=== PATIENT | female | born 1950 | race Caucasian/White ===

== ENCOUNTER 2024-07-16 08:45 | Outpatient (CLI) | payer MEDICARE, SELFPAY ==
[2024-07-16 08:58] LABS: MANUAL DIFFERENTIAL MANUAL DIFFERENTIAL (MANUAL DIFF)
[2024-07-16 09:40] LABS: Basophils % 0.3 % (0.1-2.0); Eosinophils # 0.1 K/mm3 (0.0-0.4); Eosinophils % 1.5 % (0.1-12.0); Hematocrit 41.6 % (37.0-47.0); Hemoglobin 14.5 g/dL (12.2-16.2); Lymphocytes # 2.2 K/mm3 (0.7-4.5); Lymphocytes % 33.7 % (10-50); Mean Corpuscular HGB Conc 34.9 g/dL (31.8-35.4); Mean Corpuscular Volume 94.5 fl (81-99); Mean Platelet Volume 12.2 fl (7.4-10.4); Monocytes # 0.4 K/mm3 (0.1-1.0); Monocytes % 6.5 % (1.7-9.3); Neutrophils # 3.8 K/mm3 (1.8-7.8); Neutrophils % 57.8 % (37.0-80.0); Platelet Count 251 K/mm3 (142-424); Red Cell Distribution Width 12.8 % (11.5-17.5); White Blood Count 6.5 K/mm3 (4.8-10.8)
[2024-07-16 09:59] LABS: Alanine Aminotransferase 37 U/L (12-78); Albumin Level 4.2 g/dl (3.5-5.0); Albumin/Globulin Ratio 1.6 (1.1-1.8); Alkaline Phosphatase 98 U/L (38-126); Anion Gap 16.2 mEq/L (5-15); Aspartate Amino Transferase 38 U/L (14-36); Bilirubin,Total 0.4 mg/dl (0.2-1.3); Blood Urea Nitrogen 5 mg/dl (7-17); Calcium 9.1 mg/dl (8.4-10.2); Carbon Dioxide 22 mmol/L (22.0-30.0); Chloride 102 mmol/L (98-107); Estimated Glomerular Filt Rate 157 ml/min (>60); GFR (African American) 190 ML/MIN (>60); Globulin 2.7 g/dL (1.3-3.2); Glucose 145 mg/dl (74-100); Phenytoin (Dilantin) 9.5 ug/ml (10-20); Potassium 4.2 mmoL/L (3.5-5.1); Sodium 136 mmol/L (136-145); Total Protein,Serum 6.9 g/dl (6.3-8.2)
[2024-07-16 10:13] LABS: Eosinophils % 1 % (0-3); Lymphocytes % 38 % (10-50); Monocytes % 3 % (2-9); Neutrophils % 58 % (42-76); Platelet Estimate Normal; RBC Morphology Normal; Total Cells Counted 100
[2024-07-20 17:29] LABS: Levetiracetam (Keppra) 24.3 ug/mL (10.0-40.0)
[2024-07-24 20:12] LABS: 1,25 Dihydroxy Vitamin D 53 pg/mL (.); 1,25-Dihydroxy, Vitamin D-2 <10 pg/mL (.); 1,25-Dihydroxy, Vitamin D-3 53 pg/mL (.)
== END 2024-07-16 23:59 | disposition home or self-care (01) ==
LOC: LAB 08:48
PROVIDERS: PCP Internal Medicine; Visit Provider Specialist
DX: E11.9 Type 2 diabetes mellitus without complications (principal); Z79.84 Long term (current) use of oral hypoglycemic drugs; G83.84 Todd's paralysis (postepileptic); G40.909 Epilepsy, unspecified, not intractable, without status epilepticus; Z68.31 Body mass index [BMI] 31.0-31.9, adult; E78.5 Hyperlipidemia, unspecified; I67.2 Cerebral atherosclerosis
CPT/HCPCS: 36415; 80053; 80177; 80185; 82652; 85007; 85014; 85018; 85048; 85049

== ENCOUNTER → 2024-09-14 19:29 | Outpatient (CLI) | payer MEDICARE, SELFPAY ==
--- OUTSIDE RECORDS SUMMARY | 2024-07-28 09:06 | XMS_ITS | Encounter Summary ---
Author Organization Healthcare Address [address] [place] [address] Care Team Providers Care Business And Marketing Teacher Name Role Phone Prakash Castillo DO Primary Care Provider Jermaine Maki MD Unavailable [phone] Reason for Referral * Imaging (Routine) - Closed Specialty Diagnoses / Procedures Referred By Contac t Referred To Contact Radiology Diagnoses Intracranial vascular stenosis Procedures CT Angio Neck Charlotte Hay MD [address] [address] Phone: tel: fax: Referral ID Status Reason Start Date Expiration Date Visits Re quested Visits Authorized [id number] Closed 06/03/2024 12/03/2025 1 1 * Imaging (Routine) - Closed Specialty Diagnoses / Procedures Referred By Cristi frank Referred To Contact Radiology Diagnoses Intracranial vascular stenosis Procedures CT Angio Head Charlotte Hay MD [address] [address] Phone: tel: fax: Referral ID Status Reason Start Date Expiration Date Visits Re quested Visits Authorized [id number] Closed 06/03/2024 12/03/2025 1 1 Reason for Visit * Imaging (Routine) - Closed Specialty Diagnoses / Procedures Referred By Cristi frank Referred To Contact Radiology Diagnoses Intracranial vascular stenosis Procedures CT Angio Head Charlotte Hay MD [address] [place] [address] Phone: tel: fax: Referral ID Status Reason Start Date Expiration Date Visits Re quested Visits Authorized [id number] Closed 06/03/2024 12/03/2025 1 1 Encounter Details Date Type Department Care Team (Latest Contact Info) Description 07/28/2024 9:06 AM EDT - 07/28/2024 11:59 PM EDT Hospital Encounter [facility] [address] [place] [id number] Intracranial vascular stenosis Discharge Disposition: Home or Self Care Social History Tobacco Use Types Packs/Day Years Used Date Smoking Tobacco: Former Cigarettes Q uit: 1989 Smokeless Tobacco: Never Alcohol Use Standard Drinks/Week Comments Never 0 (1 standard drink = 0.6 oz pur e alcohol) Humiliation, Afraid, Rape, a nd Kick questionnaire Answer Date Recorded Within the last year, have y ou been afraid of your partner or ex-partner? Patient unable to answer 06/01/2024 Within the last year, have y ou been humiliated or emotionally abused in other ways by your partner or ex-partner? Patient unable to answer 06/01/2024 Within the last year, have y ou been kicked, hit, slapped, or otherwise physically hurt by your partner or ex-partner? Patient unable to answer 06/01/2024 Within the last year, have y ou been raped or forced to have any kind of sexual activity by your partner or ex-partner? Patient unable to answer 06/01/2024 Social Connection and Isolation Panel Answer Date Recorded In a typical week, how many times do you talk on the phone with family, friends, or neighbors? Patient unable to answer 06/01/2024 How often do you get togethe r with friends or relatives? Patient unable to answer 06/01/2024 How often do you attend [facility] or ep[facility] services? Patient unable to answer 06/01/2024 Do you belong to any clubs o r organizations such as zoroastrianism groups, unions, fraternal or athletic groups, or school groups? Patient unable to answer 06/01/2024 How often do you attend meet ings of the clubs or organizations you belong to? Patient unable to answer 06/01/2024 Are you , , di vorced, , never , or living with a partner? Patient unable to answer 06/01/2024 AUDIT-C Answer Date Recorded Q1: How often do you have a drink containing alcohol? Patient unable to answer 06/01/2024 Q2: How many drinks containi ng alcohol do you have on a typical day when you are drinking? Patient unable to answer Q3: How often do you have si x or more drinks on one occasion? Patient unable to answer 06/01/2024 [facility] - Occupational Stress Questionnaire Answer Date Recorded Do you feel stress - tense, restless, nervous, or anxious, or unable to sleep at night because your mind is troubled all the time - these days? Patient unable to answer 06/01/2024 Exercise Vital Sign Answer Date Recorde d On average, how many days pe r week do you engage in moderate to strenuous exercise (like a brisk walk)? Patient unable to answer 06/01/2024 Minutes of Exercise per Session Not on file 06/01/2024 Hunger Vital Sign Answer Date Recorded Within the past 12 months, y ou worried that your food would run out before you got the money to buy more. Patient unable to answer 06/01/2024 Within the past 12 months, t he food you bought just didn't last and you didn't have money to get more. Patient unable to answer 06/01/2024 PRAPARE - Transportation Answer Date Re corded In the past 12 months, has l ack of transportation kept you from medical appointments or from getting medications? Patient unable to answer 06/01/2024 In the past 12 months, has l ack of transportation kept you from meetings, work, or from getting things needed for daily living? Patient unable to answer 06/01/2024 Housing Stability Vital Sign Answer Rex e Recorded In the last 12 months, was t here a time when you were not able to pay the mortgage or rent on time? Patient unable to answer 06/01/2024 Number of Times Moved in the Last Year Not on fi le 06/01/2024 At any time in the past 12 m [facility], were you homeless or living in a senior care (including now)? 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 questionnaire eye oyster opener Not on file Cage Overall score Not on file 06/01/2024 Utilities Answer Date Recorded In the past 12 months has th e electric, gas, oil, or water company threatened to shut off services in your home? Patient unable to answer 06/01/2024 Comments Unknown Sex and Gender Information Value Date Recorded Sex Assigned at Not on file Legal Sex Female 6:55 PM EDT Gender Identity Not on file Sexual Orientation Not on file documented as of this encounter Medications at Time of Discharge Accu-Chek Khadijah Plus test strip 1 STRIP DAILY TO CHECK BLOOD GLUCOSE 05/23/2024 aspirin 81 MG chewable tablet Chew 1 tablet (81 mg) daily. 360 tablet 06/03/2024 atorvastatin (Lipitor) 80 MG tablet Take 1 tablet (80 mg) by mouth nightly. 360 tablet 06/02/2024 6 levETIRAcetam (Keppra) 1000 MG tablet Take 1 tablet (1,000 mg) by mouth in the morning and 1 tablet (1,000 mg) before bedtime. 60 tablet 6 06/15/2024 multivitamin (Theragran-M) tablet Take 1 tablet by mouth daily. OTC nystatin (Mycostatin) 039577 UNIT/GM powder APPLY POWDER TOPICALLY TO AFFECTED AREA TWICE DAILY pantoprazole (ProtoNix) 20 MG EC tablet Take 1 tablet (20 mg) by mouth daily before breakfast. Do not crush, chew, or split. phenytoin ER (Dilantin) 100 MG capsule Take 2 capsules (200 mg) by mouth in the morning and 2 capsules (200 mg) before bedtime. 120 capsule 6 06/15/2024 prochlorperazine (Compazine) 5 MG tablet Take 1 tablet (5 mg) by mouth 2 (two) times a day. SITagliptin (Januvia) 100 MG tablet Take 1 tablet (100 mg) by mouth daily. valsartan (Diovan) 80 MG tablet Take 1 tablet (80 mg) by mouth daily. documented as of this encounter Miscellaneous Notes * Camryn Sullivan Didier Teresa Pierre R - 07/28/2024 9:27 AM EDT Images from the original note were not included. 1639 Caring for Yourself after Contrast Imaging If you had ORAL contrast: ?? You can go back to your normal diet and activities as tolerated. ?? Drink plenty of fluids, unless told otherwise. If you had IV contrast: ?? You can go back to your normal diet and activities as tolerated. ?? Drink plenty of fluids, unless told otherwise. ?? Leave a bandage on the site for 30 minutes (where the IV was inserted or blood was drawn). If you had Intravesical (bladder) contrast: ?? Return to normal diet and activity. What you need to know about delayed reaction to IV contrast What is IV Contrast? ?? Contrast is a dye that is put into your body through an IV. ?? It is used for imaging scans such as CT scans and MRIs. ?? The contrast makes blood vessels, organs and other parts of your body show up better on the scan. What do I need to do after IV contrast? ?? Drink lots of fluids. This will help flush the contrast out of your system. ?? Drink 2-3 extra glasses or bottles of water within 4 hours of your scan. What is a contrast reaction? ?? A contrast reaction is a bad side effect from the contrast dye. ?? It is rare but it does happen. ?? They can be mild - such as sneezing, itching, or hives. ?? They can be severe - such as trouble breathing, throat swelling, and irregular heart beat. When do these reactions happen? ?? They often happen right after the contrast is injected. ?? Some happen hours after going home. Go to the nearest Emergency Department right away if you have any of these symptoms after you leavethe clinic or hospital. ?? Sneezing ?? Itching in your mouth, throat, eyes, ears, or skin ?? Rash or hives ?? Throwing up or stomach sickness ?? High heart rate or ?racing? of your heart ?? Feeling dizzy or woozy ?? Feeling short of breath or like you can?t take a deep breath ?? Feeling very anxious for no other reason It is very important that these reactions be treated. Tell the doctor or nurse that you are having a reaction to IV contrast dye. Do not ignore any sign of a reaction! All reactions must be assessed by a doctor. Call 911 if you are alone and your reaction is more than mild sneezing or itching. If you have a mild reaction, call to speak with a Radiologist, explain that you havehad a contrast reaction, as this needs to be added to your medical record. documented in this encounter Plan of Treatment Not on file documented as of this encounter Procedures Procedure Name Priority Date/Time Associated Diagnosis Comments CT ANGIO NECK Routine 07/28/2024 9:47 AM EDT Intracranial vascular stenosis CT ANGIO HEAD Routine 07/28/2024 9:47 AM EDT Intracranial vascular stenosis documented in this encounter Results * CT Angio Neck (07/28/2024 9:47 AM EDT) Anatomical Region Laterality Modality Carotid Artery Computed Tomogra phy Impressions 07/28/2024 4:[address] angiography examinations of the head and neck. No hemodynamically significant arterial stenosis in the neck, noting minimal- moderate atherosclerosis. Moderate left P1 and P2, marked left M2 stenosis. Gerard Schuster M.D. This report has been electronically signed and verified by the Radiologist whose name is printed above. This report contains privileged and confidential information and is intended solely for the use of the individual or entity to which it is addressed. If you are not the intended recipient of this report, you are hereby notified that any copying, distribution, dissemination or action taken in relation to the contents of this report is strictly prohibited and may be unlawful. If you have received this report in error, please notify the sender immediately at [phone] and permanently delete the original report and destroy any copies or printouts. Narrative 07/28/2024 4:26 PM EDT [email or web address] - Phone Outpatient NAME: Elizabeth Pozo DATE OF EXAM: 07/28/2024 Patient No: [id number] Physician: Satnam^Charlotte^Erum Thornton Date of : 1950 Past Medical/Surgical History (entered by technologist): Symptoms/Reason For Exam (entered by technologist): intracranial stenosis Tech Notes (entered by technologist): 80 mL Intravenous iohexol (OMNIPaque) 350 MG/ML injection 100 mL Dx: Intracranial vascular stenosis Hospital f/u for left MCA and left BILLING SPECIALIST stenosis after ER transfer from [facility] as a stroke transfer. Originally presented with left-sided deficits initially thought to be stroke like symptoms and then diagnosed as a break through seizure. History of epilepsy since 15 years old. 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 Total DLP 704 mGy-cm Technique: CT angiography head and neck with intravenous contrast. Multiplanar reformats and maximum intensity projections were generated. Comparison: None. FINDINGS: CT angiography neck: Unchanged since the previous examination. Minimal atherosclerosis; visualized aortic arch and origins of the great vessels are otherwise appear normal. Normal origins of the vertebral arteries; left vertebral artery is dominant. Minimal-moderate atherosclerosis at the left internal carotid artery bifurcation. 0% stenosis of both carotid bulbs and internal carotid arteries by NASCET criteria. Normal-variant partially retropharyngeal internal carotid arteries. Visualized soft tissues of the neck, and lung apices, appear grossly normal except for probable subcentimeter colloid cysts in both thyroid lobes. Degenerative changes of the cervical spine. No suspicious bone lesions. CT angiography head: Unchanged since the previous examination. Moderate atherosclerosis of both cavernous and paraclinoid internal carotid arteries, causing minimal stenosis bilaterally. Moderate focal stenosis of the left P1 and proximal P2 segments. Marked focal stenosis of the anterior temporal branch of the left middle cerebral artery. No other hemodynamically significant intracranial arterial stenosis, no vascular malformation, no aneurysm. Dural venous sinuses and superior ophthalmic veins appear normal. Minimal diffuse prominence of lateral and third ventricles; brain parenchyma and CSF spaces are otherwise grossly normal. Procedure Note Gerard Schuster MD - 07/28/2024 [facility] - Phone Outpatient NAME: Elizabeth Pozo DATE OF EXAM: 07/28/2024 Patient No: [id number] Physician: Satnam^Charlotte^Erum Thornton Date of : 1950 Past Medical/Surgical History (entered by technologist): Symptoms/Reason For Exam (entered by technologist): intracranialstenosis Tech Notes (entered by technologist): 80 mL Intravenous iohexol(OMNIPaque) 350 MG/ML injection 100 mL Dx: Intracranial vascular stenosis Hospital f/u for left MCA and left BILLING SPECIALIST [facility]. Originally presented with left-sided deficitsinitially thought to be stroke like symptoms and then diagnosed as a breakthrough seizure. History of epilepsy since 15 years old. Presentation moreconsistent with Lito's paralysis given history, improvement of weaknessand witnessed ictal activity during her st Additional History (per [facility]): Contrast Agent and Dose: 80 mL Intravenous iohexol (OMNIPaque) 350 MG/MLinjection 100 mL Automated exposure control was used for radiation dose reduction. TotalDLP 704 mGy-cm Technique: CT angiography head and neck with intravenous contrast.Multiplanar reformats and maximum intensity projections were generated. Comparison: None. FINDINGS: CT angiography neck: Unchanged since the previous examination. Minimal atherosclerosis; visualized aortic arch and origins of the greatvessels are otherwise appear normal. Normal origins of the vertebralarteries; left vertebral artery is dominant. Minimal-moderateatherosclerosis at the left internal carotid artery bifurcation. 0%stenosis of both carotid bulbs and internal carotid arteries by NASCETcriteria. Normal-variant partially retropharyngeal internal carotidarteries. Visualized soft tissues of the neck, and lung apices, appear grosslynormal except for probable subcentimeter colloid cysts in both thyroidlobes. Degenerative changes of the cervical spine. No suspicious bonelesions. CT angiography head: Unchanged since the previous examination. Moderate atherosclerosis of both cavernous and paraclinoid internalcarotid arteries, causing minimal stenosis bilaterally. Moderate focal stenosis of the left P1 and proximal P2 segments. Marked focal stenosis of the anterior temporal branch of the left middlecerebral artery. No other hemodynamically significant intracranial arterial stenosis, novascular malformation, no aneurysm. Dural venous sinuses and superiorophthalmic veins appear normal. Minimal diffuse prominence of lateral and third ventricles; brainparenchyma and CSF spaces are otherwise grossly normal. IMPRESSION: Unchanged CT angiography examinations of the head and neck. No hemodynamically significant arterial stenosis in the neck, notingminimal- moderate atherosclerosis. Moderate left P1 and P2, marked left M2 stenosis. Gerard Schuster M.D. This report has been electronically signed and verified by the Radiologistwhose name is printed above. This report contains privileged and confidential information and isintended solely for the use of the individual or entity to which it isaddressed. If you are not the intended recipient of this report, you arehereby notified that any copying, distribution, dissemination or actiontaken in relation to the contents of this report is strictly prohibitedand may be unlawful. If you have received this report in error, pleasenotify the sender immediately at [phone] and permanently delete theoriginal report and destroy any copies or printouts. us Charlotte Hay MD IM CT PROCEDURES Final Resul t * CT Angio Head (07/28/2024 9:47 AM EDT) Anatomical Region Laterality Modality [place] [employer] [place] Computed Tomogr aphy Impressions 07/28/2024 4:[address] angiography examinations of the head and neck. No hemodynamically significant arterial stenosis in the neck, noting minimal- moderate atherosclerosis. Moderate left P1 and P2, marked left M2 stenosis. Gerard Schuster M.D. This report has been electronically signed and verified by the Radiologist whose name is printed above. This report contains privileged and confidential information and is intended solely for the use of the individual or entity to which it is addressed. If you are not the intended recipient of this report, you are hereby notified that any copying, distribution, dissemination or action taken in relation to the contents of this report is strictly prohibited and may be unlawful. If you have received this report in error, please notify the sender immediately at [phone] and permanently delete the original report and destroy any copies or printouts. Narrative 07/28/2024 4:26 PM EDT [facility] - Phone Outpatient NAME: Elizabeth Pozo DATE OF EXAM: 07/28/2024 Patient No: [id number] Physician: Satnam^Charlotte^Erum Thornton Date of : 1950 Past Medical/Surgical History (entered by technologist): Symptoms/Reason For Exam (entered by technologist): intracranial stenosis Tech Notes (entered by technologist): 80 mL Intravenous iohexol (OMNIPaque) 350 MG/ML injection 100 mL Dx: Intracranial vascular stenosis Hospital f/u for left MCA and left BILLING SPECIALIST stenosis after ER transfer from [facility] as a stroke transfer. Originally presented with left-sided deficits initially thought to be stroke like symptoms and then diagnosed as a break through seizure. History of epilepsy since 15 years old. 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 Total DLP 704 mGy-cm Technique: CT angiography head and neck with intravenous contrast. Multiplanar reformats and maximum intensity projections were generated. Comparison: None. FINDINGS: CT angiography neck: Unchanged since the previous examination. Minimal atherosclerosis; visualized aortic arch and origins of the great vessels are otherwise appear normal. Normal origins of the vertebral arteries; left vertebral artery is dominant. Minimal-moderate atherosclerosis at the left internal carotid artery bifurcation. 0% stenosis of both carotid bulbs and internal carotid arteries by NASCET criteria. Normal-variant partially retropharyngeal internal carotid arteries. Visualized soft tissues of the neck, and lung apices, appear grossly normal except for probable subcentimeter colloid cysts in both thyroid lobes. Degenerative changes of the cervical spine. No suspicious bone lesions. CT angiography head: Unchanged since the previous examination. Moderate atherosclerosis of both cavernous and paraclinoid internal carotid arteries, causing minimal stenosis bilaterally. Moderate focal stenosis of the left P1 and proximal P2 segments. Marked focal stenosis of the anterior temporal branch of the left middle cerebral artery. No other hemodynamically significant intracranial arterial stenosis, no vascular malformation, no aneurysm. Dural venous sinuses and superior ophthalmic veins appear normal. Minimal diffuse prominence of lateral and third ventricles; brain parenchyma and CSF spaces are otherwise grossly normal. Procedure Note Gerard Schuster MD - 07/28/2024 [facility] - Phone Outpatient NAME: Elizabeth Pozo DATE OF EXAM: 07/28/2024 Patient No: [id number] Physician: Satnam^Charlotte^Erum Thornton Date of : 1950 Past Medical/Surgical History (entered by technologist): Symptoms/Reason For Exam (entered by technologist): intracranialstenosis Tech Notes (entered by technologist): 80 mL Intravenous iohexol(OMNIPaque) 350 MG/ML injection 100 mL Dx: Intracranial vascular stenosis Hospital f/u for left MCA and left BILLING SPECIALIST [facility]. Originally presented with left-sided deficitsinitially thought to be stroke like symptoms and then diagnosed as a breakthrough seizure. History of epilepsy since 15 years old. Presentation moreconsistent with Lito's paralysis given history, improvement of weaknessand witnessed ictal activity during her st Additional History (per [facility]): Contrast Agent and Dose: 80 mL Intravenous iohexol (OMNIPaque) 350 MG/MLinjection 100 mL Automated exposure control was used for radiation dose reduction. TotalDLP 704 mGy-cm Technique: CT angiography head and neck with intravenous contrast.Multiplanar reformats and maximum intensity projections were generated. Comparison: None. FINDINGS: CT angiography neck: Unchanged since the previous examination. Minimal atherosclerosis; visualized aortic arch and origins of the greatvessels are otherwise appear normal. Normal origins of the vertebralarteries; left vertebral artery is dominant. Minimal-moderateatherosclerosis at the left internal carotid artery bifurcation. 0%stenosis of both carotid bulbs and internal carotid arteries by NASCETcriteria. Normal-variant partially retropharyngeal internal carotidarteries. Visualized soft tissues of the neck, and lung apices, appear grosslynormal except for probable subcentimeter colloid cysts in both thyroidlobes. Degenerative changes of the cervical spine. No suspicious bonelesions. CT angiography head: Unchanged since the previous examination. Moderate atherosclerosis of both cavernous and paraclinoid internalcarotid arteries, causing minimal stenosis bilaterally. Moderate focal stenosis of the left P1 and proximal P2 segments. Marked focal stenosis of the anterior temporal branch of the left middlecerebral artery. No other hemodynamically significant intracranial arterial stenosis, novascular malformation, no aneurysm. Dural venous sinuses and superiorophthalmic veins appear normal. Minimal diffuse prominence of lateral and third ventricles; brainparenchyma and CSF spaces are otherwise grossly normal. IMPRESSION: Unchanged CT angiography examinations of the head and neck. No hemodynamically significant arterial stenosis in the neck, notingminimal- moderate atherosclerosis. Moderate left P1 and P2, marked left M2 stenosis. Gerard Schuster M.D. This report has been electronically signed and verified by the Radiologistwhose name is printed above. This report contains privileged and confidential information and isintended solely for the use of the individual or entity to which it isaddressed. If you are not the intended recipient of this report, you arehereby notified that any copying, distribution, dissemination or actiontaken in relation to the contents of this report is strictly prohibitedand may be unlawful. If you have received this report in error, pleasenotify the sender immediately at [phone] and permanently delete theoriginal report and destroy any copies or printouts. us Charlotte Hay MD IM CT PROCEDURES Final Resul t documented in this encounter Visit Diagnoses Diagnosis Intracranial vascular stenosis documented in this encounter Administered Medications Inactive Administered Medications - up to 3 most recent administrations Medication Order MAR Action Action Date Dose Rate Site iohexol (OMNIPaque) 350 MG/ML injection 100 mL 100 mL, Intravenous, Once in imaging, 1 dose, Starting on Sat07/28/24 at 0919, Until Sat07/28/24 at 0941, Routine, Imaging Protocol Orders Given 07/28/2024 9:41 AM EDT 80 mL documented in this encounter Additional Health Concerns Assessment Noted Time A fall risk assessment has been complete d for the patient 07/28/2024 10:36 AM EDT A Body Mass Index follow-up plan has been documented for the patient 07/28/2024 2:58 PM EDT documented as of this encounter Care Teams Business And Marketing Teacher Relationship Specialty Start Date End Date Prakash Castillo DO [address] [facility] [address] [place] [address] PCP - General 06/15/24 Jermaine Maki MD [address] [facility] [address] [place] [address] Consulting Physician Neurology 06/15/24 documented as of this encounter
--- OUTSIDE RECORDS SUMMARY | 2024-07-28 11:20 | XMS_ITS | Encounter Summary ---
Author Organization Healthcare Address [address] [place] [address] Care Team Providers Care Hydroelectric Operator Name Role Phone Lakisha Castilloew Matilde SIDDIQUI Primary Care Provider Jermaine Maki MD Unavailable [phone] Reason for Visit * Consultation (Routine) - Closed Specialty Diagnoses / Procedures Referred By Cristi frank Referred To Contact Neurosurgery Diagnoses Stroke-like symptoms Robyn Gonzalez MD [id number] [place] [address] Phone: tel: fax: Referral ID Status Reason Start Date Expiration Date V isits Requested Visits Authorized [id number] Closed Specialty Services Required 06/02/2024 12/02/2025 1 1 Encounter Details Date Type Department Care Team (Late st Contact Info) Description 07/28/2024 11:20 AM EDT Office Visit [place] [facility] [address] [place] [address] Charlotte Hay MD [address] [facility] [address] [place] [address] Asymptomatic stenosis of intracranial artery (Primary Dx); Stroke-like symptoms Social History Tobacco Use Types Packs/Day Years [...] answer 06/01/2024 How often do you attend [facility] or zoroastrianism services? Patient unable to answer 06/01/2024 Do you belong to any clubs o r organizations such as advent groups, unions, fraternal or athletic groups, or [...] one occasion? Patient unable to answer 06/01/2024 [facility] - Occupational Stress [...] any time in the past 12 m [facility], were you homeless or living in a fdc (including now)? 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 questionnaire eye surgical processor Not on file Cage Overall score Not [...] on file documented as of this encounter Last Filed Vital Signs Vital Sign Reading Time Taken Comments Blood Pressure 142/80 07/28/2024 10:36 AM EDT Pulse 75 07/28/2024 10:36 AM EDT Temperature - - Respiratory Rate - - Oxygen Saturation 95% 07/28/2024 10:36 AM EDT Inhaled Oxygen Concentration - - Weight 70.9 kg (156 lb 4.9 oz) 07/28/2024 10:36 AM EDT Height 149.9 cm (4' 11 ) 07/28/2024 10:36 AM EDT Body Mass Index 31.57 07/28/2024 10:36 AM EDT documented in this encounter Miscellaneous Notes * Progress Notes - Sahra Pacheco PA - 07/28/2024 11:20 AM EDT Dear Prakash Castillo, DO, We had the pleasure of seeing your patient in our neurosurgical clinic today. HISTORY OF PRESENT ILLNESS: Elizabeth Pozo is a 73 y.o. 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 Originally presented with left-sideddeficits initially thought to be stroke like symptoms and then diagnosed as a break through seizure. History of epilepsy since 15 years old. Presentation more consistent with Lito's paralysis given history, improvement of weakness and witnessed ictal activity during her stay in the ER after ativan was given. Today she presents with her who states she has been rapidly improving since her hospital stay. For 4-5 days after her seizure she had short term memory loss and confusion. Denies seizure since then, currently taking phenytoin and Keppra. After the finding of intracranial stenosis she was started on 81 mg asa and Lipitor. Denies history of stroke, new vision changes, facial asymmetry, N/T/W. She does have throbbing headaches daily with relief from Tylenol. PMH: Seizures, HTN, T2DM, mild cerebral white matter disease SH: Denies tobacco, alcohol and drug use Family History[1] Immunization History Administered Date(s) Administered Moderna Covid-19 Vaccine 12y+, Sony Protein, Preservative free 01/29/2024 Pfizer Covid-19 Vaccine 12y+, Sony Protein, PF, Blake-Sucrose 01/22/2023 Pfizer-BioNTech COVID-19 Bivalent (Martinez Cap) 12+ years (blake-sucrose) 01/05/2022 Pfizer-BioNTech COVID-19 Vaccine (Rogers Cap) 12+ years (blake-sucrose) 08/18/2021 Pfizer-BioNTech COVID-19 Vaccine (Purple Cap) 12+ 05/07/2020, 05/28/2020, 12/26/2020 Allergies[2] Medications Ordered Prior to Encounter[3] ROS: A 14 point review of systems was completed and reviewed. Negative other than indicated above in the history of present illness. Last Recorded Vitals Visit Vitals BP (!) 142/80 Pulse 75 Ht 1.499 m (4' 11 ) Wt 70.9 kg (156 lb 4.9 oz) SpO2 95% BMI 31.57 kg/m?? Smoking Status Former BSA 1.72 m?? PHYSICAL EXAM: -Constitutional: Well developed, well nourished. No acute distress. Alert and oriented to person, place, and time. -Head, Eyes, Nose, Throat: Normocephalic, atraumatic. Pupils are equally round and reactive to light. Extra-ocular movements are intact without nystagmus. Oral mucosa is pink and moist. -Musculoskeletal: Moves all 4 extremities equally. Gait is steady and independent without spasticity. -Extremities: There is no clubbing, cyanosis, or edema. There is no pronator drift. -Neurologic: Awake, alert, following commands briskly, speech intact CN 2-12 intact Face symmetric Motor RUE 5/5 RLE 5/5 LUE 5/5 LLE 5/5 Sensation intact to light touch IMAGING: I personally reviewed and independently interpreted the following: CTA Head and neck performed on 06/01/24 demonstrates: Atherosclerotic calcifications of the bilateralcarotid siphons with mild associated intraluminal narrowing. Moderate stenosis of the left P1 and proximal P2 segment. There is no evidence of vascular injury, specifically no other high-grade arterial stenosis, occlusion, dissection, or pseudoaneurysm. There is no evidence of vascular injury, specifically no high-grade arterial stenosis, occlusion, dissection, or pseudoaneurysm. There is 0% stenosis of the ICA origins by NASCET criteria. ASSESSMENT AND PLAN: Elizabeth Pozo is a 73 y.o. year old female with: Incidentally found Intracranial stenosis - left MCA and PILOT BOAT OPERATOR stenosis Continue ASA 81 mg and atorvastatin 80 mg for maximal medical management. PRN, no intervention needed at this time as patient is asymptomatic and has not failed maximal medical management. 2. Epilepsy seizure disorder Continue f/u with Dr. Wilder in neurology for medical management Thank you. If there are any questions or concerns please feel free to contact us: [facility] Department of Neurosurgery [address] [place] [address] [place] [address] ; [1] No family history on file. [2] Allergies Allergen Reactions Aspirin Other - please document in the comment field GI Upset Codeine Unknown - Patient states they do not know rxn details Flagyl [Metronidazole] Unknown - Patient states they do not know rxn details Gatifloxacin Other - please document in the comment field Tequin Pertussis Vaccine Other - please document in the comment field pertussis vaccine Sulfa Drugs Unknown - Patient states they do not know rxn details Tetracycline Other - please document in the comment field tetracycline hydrochloride [3] Current Outpatient Medications on File Prior to Visit Medication Sig Dispense Refill Accu-Chek Khadijah Plus test strip 1 STRIP DAILY TO CHECK BLOOD GLUCOSE aspirin 81 MG chewable tablet Chew 1 tablet (81 mg) daily. 360 tablet 0 atorvastatin (Lipitor) 80 MG tablet Take 1 tablet (80 mg) by mouth nightly. 360 tablet 0 levETIRAcetam (Keppra) 1000 MG tablet Take 1 tablet (1,000 mg) by mouth in the morning and 1 tablet(1,000 mg) before bedtime. 60 tablet 6 multivitamin (Theragran-M) tablet Take 1 tablet by mouth daily. OTC nystatin (Mycostatin) 814047 UNIT/GM powder APPLY POWDER TOPICALLY TO AFFECTED AREA TWICE DAILY pantoprazole (ProtoNix) 20 MG EC tablet Take 1 tablet (20 mg) by mouth daily before breakfast. Do not crush, chew, or split. phenytoin ER (Dilantin) 100 MG capsule Take 2 capsules (200 mg) by mouth in the morning and 2 capsules (200 mg) before bedtime. 120 capsule 6 SITagliptin (Januvia) 100 MG tablet Take 1 tablet (100 mg) by mouth daily. valsartan (Diovan) 80 MG tablet Take 1 tablet (80 mg) by mouth daily. prochlorperazine (Compazine) 5 MG tablet Take 1 tablet (5 mg) by mouth 2 (two) times a day. Current Facility-Administered Medications on File Prior to Visit Medication Dose Route Frequency Provider Last Rate Last Admin [COMPLETED] iohexol (OMNIPaque) 350 MG/ML injection 100 mL 100 mL Intravenous Once in imaging Ishaan Schneider MD 80 mL at 07/28/24 0941 Cosigned by Charlotte Hay MD at 08/10/2024 11:09 AM EDT Associated attestation - Charlotte Hay MD - 08/10/2024 11:09 AM EDT I saw and examined the patient with the NING. I agree with the assessment and plan. A substantive portion of care was provided by the NING. documented in this encounter Plan of Treatment Not on file documented as of this encounter Visit Diagnoses Diagnosis Asymptomatic stenosis of intracranial artery- Primary Stroke-like symptoms documented in this encounter Additional Health Concerns Assessment Noted Time A fall risk assessment has been complete d for the patient 07/28/2024 10:36 AM EDT A Body Mass Index follow-up plan has been documented for the patient 07/28/2024 2:58 PM EDT documented as of this encounter Care Teams Hydroelectric Operator Relationship Specialty Start Date End Date Prakash Castillo DO [address] [facility] [address] [place] [address] PCP - General 06/15/24 Jermaine Maki MD [address] [place] [address] Consulting Physician Neurology 06/15/24 documented as of this encounter
--- OUTSIDE RECORDS SUMMARY | 2024-09-14 19:36 | XMS_ITS | Continuity of Care Document ---
Author Organization [facility], [facility] Address [address] [place] [address] Assessment Encounter Date Assessment Date Assessment LastModified by Organization Details LastModified Time 07/31/2024 07/31/2024 Patient presented to office today for their Medicare Annual Wellness Visit. Wellness visit Questionnaire was reviewed. Depression screening was negative and no followup plan is needed. Emphasized preventive health measures including fall prevention to help reduce health risks and promote healthy living. carmen Not available 07/31/2024 15:08:28 Plan of Treatment Reminders Order Date Submit Date Provider Last Modified By Organization Details Last Modified Time Details Appointments RECHE CK 2024 02:30P M DR CORONA Not available Not available Not available Lab glyco hemog lobin , total , blood 2024 025 [facility], [address] [place] [address], [phone], 07/31/2024 19:28:15 CBC w/ auto diff 2024 025 [facility], [address] [place] [address], [phone], 07/31/2024 19:25:22 CMP, serum or plasm a 2024 025 [facility], [address] [place] [address], [phone], 07/31/2024 19:30:04 Referral None recor ded. Procedures None recor ded. Surgeries None recor ded. Imaging None recor ded. Medication Orders ondajimenez setro n HCl 4 mg table t 2024 025 [id number], [address], [place], [phone], 07/31/2024 15:15:28 Patient TargetsNo targets recorded. Patient InstructionsNo instructions recorded. Reason for Referral None Reported. Problems Name Problem SNOMED Code Status Onset Date Resolution Date Notes Provider Name and Address Organization Details Recorded Time Type 2 diabetes mellitus without complicat ion 257274417 Active 2022 JI SANCHEZ, DO [address] [place], [address] , [facility] 3 17:04:52 Essential hypertens ion 26795124 Active 2022 JI SANCHEZ, DO [address] [place], [address] , [facility] 3 17:04:53 Mixed hyperlipi demia 566128264 Active 2022 JI SANCHEZ, DO [address] [place], [address] , [facility] 3 17:04:54 Seizure disorder 702706740 Active 2022 JI SANCHEZ, DO [address] [place], [address] , [facility] 3 17:04:56 Obesity 290961595 Active Not Available [facility] 4 14:08:00 Morbid obesity 818148119 Active Not Available [facility] 5 14:16:35 Renal disorder due to type 2 diabetes mellitus 943427836 Active Not Available [facility] 5 14:16:57 Cerebrova scular disease 64836168 Active 2024 JI SANCHEZ, DO [address] [place], [address] , [facility] 5 14:17:48 Irritable bowel syndrome character ized by constipat ion 027305591 Active 2024 JI DEMETRI LL, DO [address] [place], [address] , [facility] 5 14:17:51 Urinary tract infectiou s disease 94813603 Active 2015 From Automated Load;Provi paulina: Choi, Angel;St atus: Active Not Available [facility] 6 08:01:39 Problem Notes None recorded. Medical Equipment None Reported. Allergies Allergen ID Allergen Name Allergen Category Reaction Reaction Severity Criticality Documentation Date Start Date Code Code System Note Provider Name and Address Organization Details Recorded Time 20451202 Tequin medicatio n Not available Not available Not available 02/23/20162005 42927 4 RxNorm Comme nt: Creat ed By: Saira Isabel ;Crea selene Date: 01/15 8:27: 00 AM; Not Available [facility] 6 12:27:44 869030 Flagyl medicatio n Not available Not available Not available 02/23/2016201586 6 RxNorm Comme nt: Creat ed By: John meadows Date: 2015 12:26 :53 PM; Not Available [facility] 6 12:27:44 851188 aspirin medicatio n Not available Not available Not available 02/23/20162005 1191 RxNorm Comme nt: Creat ed By: Saira Isabel ;Crea selene Date: 01/15 8:27: 28 AM; Not Available [facility] 6 12:37:17 499183 Substance with sulfonami de structure and antibacte rial mechanism of action (substanc e) medicatio n Not available Not available Not available 02/24/20162005 57768 8003 SNOMED Comme nt: Creat ed By: Saira Isabel ;Crea selene Date: 01/15 8:24: 43 AM; Not Available [facility] 6 03:13:54 948210 pertussis vaccine medicatio n Not available Not available Not available 02/24/20162005 8080 RxNorm Comme nt: Creat ed By: Saira Isabel ;Creblair selene Date: 01/15 8:27: 39 AM; Not Available [facility] 6 03:13:54 704728 codeine medicatio n Not available Not available Not available 02/24/20162015 2670 RxNorm Comme nt: Creat ed By: John meadows Date: 2015 12:27 :13 PM; Not Available [facility] 6 03:13:54 240161 tetracycl ine hydrochlo ride medicatio n Not available Not available Not available 02/24/20162005 20249 6 RxNorm Comme nt: Creat ed By: Saira Isabel ;Jaylan selene Date: 01/15 8:26: 48 AM; Not Available [facility] 6 10:28:13 Medications Name Sig Start Date Stop Date Status Note LastModified by Organization Details LastModified Time atorvasta tin 80 mg tablet Take 1 tablet every day by oral route. 2024 active Not Available Not Available Not Avai lable azelastin e 0.05 % eye drops 11/17 completed Medicati on Descript ion: azelasti ne ophthalm ic; Route:op hthalmic ; refills: 0 Not Available Not Available Not Available levetirac etam 500 mg tablet TAKE 1 TABLET BY MOUTH TWICE DAILY 06/16 completed Not Available Not Available Not Available prochlorp erazine maleate 5 mg tablet 1 tablet BID 07/31 completed Not Available Not Available Not Available ondansetr on HCl 4 mg tablet Take 1 tablet(s ) 3 times a day by oral route as needed. 2024 active Not Available Not Available Not Avai lable simvastat in 10 mg tablet Take 1 tablet every day by oral route. 06/16 completed Not Available Not Available Not Available valsartan 80 mg tablet Take 1 tablet every day by oral route. active Not Available Not Available No t Available phenytoin sodium extended 100 mg capsule One capsule 4x daily active Not Available Not Available No t Available pantopraz ole 20 mg tablet,de layed release TAKE 1 TABLET DAILY 2024 active Not Available Not Available Not Avai lable ketorolac 0.5 % eye drops 11/17 completed Not Available Not Available Not Available phenobarb ital 60 mg tablet Two times a day 02/13 completed Frequenc y: bid;Medi cation Descript ion: phenobar bital; Dosage:1 ; Route:or al; refills: 5; Quantity :60 tablet Not Available Not Available Not Available prednisol one acetate 1 % eye drops,darin pension 11/17 completed Not Available Not Available Not Available estradiol 1 mg tablet 05/20 completed Duration : 10 days;Med ication Descript ion: estradio l; Route:or al; refills: 0; Quantity :30 tablet Not Available Not Available Not Available pantopraz ole 40 mg tablet,de layed release Take 1 tablet every day by oral route. 05/20 completed Not Available Not Available Not Available tobramyci n 0.3 % eye drops 11/17 completed Not Available Not Available Not Available nystatin 100,000 unit/gram topical cream APPLY TO AFFECTED AREA BY TOPICAL ROUTE TWICE DAILY 07/31 completed Not Available Not Available Not Available phenobarb ital 64.8 mg tablet TAKE 1 TABLET BY MOUTH EVERY DAY 11/17 completed Not Available Not Available Not Available PreviDent 5000 Plus 1.1 % cream 05/20 completed Medicati on Descript ion: fluoride topical; Route:to pical; refills: 0 Not Available Not Available Not Available Zoloft 25 mg tablet Take 1 tablet every day by oral route for 90 days. 2024 active Not Available Not Available Not Avai lable AcipHex 20 mg tablet,de layed release Daily 05/20 completed Duration : 30 days;Chon quency: daily;Me dication Descript ion: rabepraz ole; Dosage:1 ; Route:or al; refills: 0; Quantity :30 tablet, extended release Not Available Not Available Not Available valsartan 40 mg tablet TAKE 1 TABLET BY MOUTH DAILY 02/13 completed Not Available Not Available Not Available cyclospor ine 0.05 % eye drops in a dropperet te 06/16 completed Not Available Not Available Not Available Climara Pro 0.045 mg-0.015 mg/24 hr transderm al patch 05/20 completed Medicati on Descript ion: estradio l-levono rgestrel ; Route:tr ansderma l; refills: 0 Not Available Not Available Not Available phenytoin Every night at bedtime 02/13 completed Duration : 10 days;Chon quency: qhs;Medi cation Descript ion: phenytoi n; refills: 0; Quantity :90 Not Available Not Available Not Available simvastat in 02/13 completed Medicati on Descript ion: simvasta tin; Route:or al; refills: 0 Not Available Not Available Not Available levetirac etam 1,000 mg tablet active Not Available Not Available Not Available Januvia 100 mg tablet TAKE 1 TABLET DAILY 2024 active Not Available Not Available Not Avai lable Astepro 137 mcg (0.1 %) nasal spray [place] 2 sprays twice a day by intranas al route. 11/17 completed Not Available Not Available Not Available sodium,po tassium,m ag sulfates 17.5 gram-3.13 gram-1.6 gram oral soln TAKE 6 OUNCES TWO TIMES A DAY BY MOUTH FOR ONE DAY FOR COLONOSC OPY PREP 06/16 completed Not Available Not Available Not Available Accu-Chek Khadijah Plus test strips TEST GLUCOSE EVERY DAY active Not Available Not Available No t Available azelastin e 137 mcg-fluti casone 50 mcg/spray nasal spray [place] 1 spray twice a day by intranas al route. 05/20 completed Not Available Not Available Not Available Flonase Allergy Relief 50 mcg/actua tion nasal spray,darin pension Daily 11/17 completed Frequenc y: daily;Me dication Descript ion: fluticas one nasal; Dosage:1 spray; Route:na susy; refills: 0; Quantity :1 spray Not Available Not Available Not Available Tyrvaya 0.03 mg/spray nasal spray INSTILL 1 SPRAY IN EACH NOSTRIL TWICE DAILY 06/16 completed Not Available Not Available Not Available Klayesta 100,000 unit/gram topical powder APPLY POWDER TOPICALL Y TO AFFECTED AREA TWICE DAILY 05/02 /2025 completed Not Available Not Available Not Available Vitals Date Recorded Body height Body mass index (BMI) Body weight Heart rate Oxygen saturation Oxygen saturation in Arterial blood by Pulse oximetry Systolic blood pressure Diastolic blood pressure Provider Name and Address Organization Details Last Updated DateTime 149.86 cm 31.2 kg/m2 99686.3 2 g 73 /min 97 % 97 % 145 mm[Hg] 65 mm[Hg] Bambi Silva [facility] 14:20:46 Social History Question Answer Notes LastModified by [employer] Details LastModified Time Tobacco Smoking Status Never Smoker Snehal [facility] 02/13/2023 14:17:59 What Was The Date Of Your Most Recent Tobacco Screening? 11/18/2023 [email or web address] Information not available 11/18/2023 Has Tobacco Cessation Counseling Been Provided? No Information not available 02/13/2023 Sex: Unknown Functional Status Question Answer Note LastModified by Wallyizat ion Details LastModified Time Do you use any illicit or recreational drugs? No Information not available 02/13/2023 Do you or have you ever used any other forms of tobacco or nicotine? No Information not available 02/13/2023 What is your level of alcohol consumption? None Information not available 02/13/2023 Mental Status None recorded. Family History Nothing Reported. Medical History No medical history recorded. Gynecological HistoryNo gynecological history recorded. Obstetrics History GPAL:G 0 P 0 0 0 0 Immunizations Vaccine Type Date Status Note Provider Nam e and Address Organization Details Recorded Time Influenza, high-dose, quadrivalent, PF 01/05/2022 completed Marian [facility] 03/26/2024 14:45:01 Influenza, high-dose, quadrivalent, PF 01/22/2023 completed Marian Guzman [facility] 03/26/2024 14:45:01 COVID-19, mRNA, LNP-S, PF, 30 mcg/0.3 mL dose 05/07/2020 completed Marian Guzman [facility] 03/26/2024 14:45:01 COVID-19, mRNA, LNP-S, PF, 30 mcg/0.3 mL dose 05/28/2020 completed Marian Guzman [facility] 03/26/2024 14:45:01 COVID-19, mRNA, LNP-S, PF, 30 mcg/0.3 mL dose 12/26/2020 completed Marian Guzman [facility] 03/26/2024 14:45:01 COVID-19, mRNA, LNP-S, PF, 30 mcg/0.3 mL dose, jacob-sucrose 08/18/2021 completed Marian Guzman [facility] 03/26/2024 14:45:01 COVID-19, mRNA, LNP-S, bivalent, PF, 30 mcg/0.3 mL dose 01/05/2022 completed Marian Guzman [facility] 03/26/2024 14:45:01 COVID-19, mRNA, LNP-S, PF, jacob-sucrose, 30 mcg/0.3 mL 01/22/2023 completed Marian Guzman [facility] 03/26/2024 14:45:01 RSV, bivalent, protein subunit RSVpreF, diluent reconstituted, 0.5 mL, PF 03/06/2023 completed Marian Guzman [facility] 03/26/2024 14:54:50 Influenza, high-dose, trivalent, PF 01/27/2024 completed Snehal [facility] 01/27/2024 14:45:43 Past Encounters Encounter ID Performer Location Encounter Start Date Encounter Closed Date Diagnosis/Indication Diagnosis SNOMED-CT Code Diagnosis ICD10 Code Diagnosis Note [id number] JIWILFREDO MOSQUERA LL, DO [facility] [address] [place] [address] 07/31/2024 14:01:00 07/31/2024 15:45:25 Pruritic rash 99373526 L28.2 Suspect fungal, nystatin powder and cream08/23- seems better. no further powder Seizure disorder 0602005 02 G40.909 seeing neuro now.11/17-n eurologist referred her to recently left the practice, she is stable, evaluation was unrevealin g, we will simply continue her medication for now05/26 - stable06/23 - documented seizure- on meds- seeing [place] neuro08/23- on phentoyn and keppra - seeing Me[facility] in [facility]- did EEG. n house sleep test scheduled- then follow up-dont know results. Abnormal weight loss 267 140128 R63.4 08/23-charley rning, but felt to be multifacto rial, recent EGD was normal, recheck labs today Essential hypertension 19927911 I10 Medication decision made based on pt's allergies and co-morbid conditions including: HTN, T2DM08/23-v alsartan 80, might need to decrease blood pressure medicine as weight drops Hyperlipidemia 30230345 E78.5 On statin, tolerating wellGoal LDL less than 70, was 78 - LDL 10105/26-on statin tolerating well check lipids today08/23- recent escalation of high intensity statin. Seems to be tolerating okay doubt her GI effects are from that Type 2 carlos enrique betes mellitus without complication 296982417 E11.9 on januvia., aic 6.9 02/21, LDL 788/19- surendra labs today . tolerates januva well.11/22- aic 7.02-ch mally routine labs, microalbum in, no complicati ons that we know of08/23- losing weight-rec heck A1c might be able to stop Januvia Gastroesop hageal reflux disease without esophagitis 605788327 K21.9 Symptoms reasonably well-contr olled on PPI, antinausea medication as needed05/26 - symptoms ok. EGD ok08/23-elias rologist was concerned about some of her nausea meds recommende d to try Zofran continue PPI. Nausea and vomiting 1692 1999 R11.2 Forgetful 74302994 R41.3 Patient has become a little bit more forgetful, has noticed a few things, she has had some stressors with the loss of her mother, did not do great on the Mini-Menta l status examinatio n we will reevaluate in a few weeks08/23- feels better. feels this might be getting a little bit better, could be situationa l medication related Irritable bowel syndrome characterized by constipation 623179577 K58.1 08/23 still slow - rec mom- Cerebrovas cular disease 45725366 I67.9 08/23- MCA has [facility] intercrani al stenosis- on asa and hig dose statin Health Concerns Section Related Observation LastModified by Organization Detai ls LastModified Time None Recorded Concern Status LastModified by Organization Details LastModified Time None Recorded Payers Encounter Date Sequence Insurance Name Policy Number Policy Ibrahim Covered Member ID Ibrahim Member ID Guarantor Name 07/31/2024 1 [place] Elizabeth Pozo [id number] Elizabeth Pozo 07/31/2024 2 [employer] (MEDICARE SUPPLEMENT) Elizabeth Pozo [id number] Elizabeth Pozo Notes Date Note Type Note Provider Name and Address Organization Details Recorded Time 07/31/2024 text/html Patient is a 73-year-old female here for follow-up visit.She has diabetes hypertension hyperlipidemia. She has recently suffered an episode of significant seizures, part of her evaluation showed pretty significant cerebrovascular disease with 2 specific areas of blockages, was seen a neurosurgeon who recommended medical management of aspirin and statin. She is also following with a neurologist in [place], she is on phenobarbital as well as Keppra. She is doing okay but not great, she continues to have chronic nausea, poor appetite, slow bowels lower abdominal discomfort.She did see GI in May before her seizure disorder, she had an EGD which was normal. Colonoscopy 4 years ago. Mentally she was very forgetful, says she is getting better JI CORONA, DO [address], [place], [address], [facility] 07/31/2024 17:12:13 OBGyn Episode No OBEpisode recorded.
--- OUTSIDE RECORDS SUMMARY | 2024-09-14 19:36 | XMS_ITS | Data Portability ---
Author Organization JUAN R Child TEXLINE CLOSED Address [address] [facility] [address] [place] [address] Assessment Encounter Date Assessment Date Assessment LastModified by Organization Details LastModified Time 05/22/2024 05/22/2024 Patient presented to office today for their Medicare Annual Wellness Visit. Wellness visit Questionnaire was reviewed. Depression screening was negative and no followup plan is needed. Emphasized preventive health measures including fall prevention to help reduce health risks and promote healthy living. [email or web address] Not available 05/21/2024 14:14:01 07/31/2024 07/31/2024 Patient presented to office today for their Medicare Annual Wellness Visit. Wellness visit Questionnaire was reviewed. Depression screening was negative and no followup plan is needed. Emphasized preventive health measures including fall prevention to help reduce health risks and promote healthy living. [email or web address] Not available 07/31/2024 15:08:28 09/08/2024 09/08/2024 Patient presented to office today for their Medicare Annual Wellness Visit. Wellness visit Questionnaire was reviewed. Depression screening was negative and no followup plan is needed. Emphasized preventive health measures including fall prevention to help reduce health risks and promote healthy living. [email or web address] Not available 09/08/2024 14:11:23 Plan of Treatment Reminders Order Date Submit Date Provider Last Modified By Organization Details Last Modified Time Details Appointments RECHE CK 2024 02:30P M DR CASTILLO Not available Not available Not available Lab glyco hemog lobin , total , blood 2024 0502/2 025 [facility], [facility], [place], [address], 07/31/2024 19:28:15 CBC w/ auto diff 2024 025 [facility], [address] [place] [address], [phone], 07/31/2024 19:25:22 CMP, serum or plasm a 2024 025 [facility], [address] [place] [address], [address], 07/31/2024 19:30:04 glyco hemog lobin , total , blood 2024 025 [facility], [address] [place] [address], [phone], 05/22/2024 19:30:26 micro album in/cr eatin ine, mass ratio , urine 2024 025 [facility], [address] [place] [address], [id number], 05/22/2024 20:00:24 CMP, serum or plasm a 2024 025 [facility], [address] [place] [address], [address], 05/22/2024 20:12:30 CBC w/ auto diff 2024 025 [facility], [address] [place] [address], [id number], 05/22/2024 19:11:18 lipid panel , serum 2024 025 [facility], [address] [place] [address], [address], 05/22/2024 20:12:[address] refer ral 2024 025 [email or web address] Merlyn Rice MD, [address], [address], [place], [address], 06/16/2024 15:40:28 Procedures None recor ded. Surgeries None recor ded. Imaging CT, abdom en + pelvi s, w/o contr ast - R/o diver ticul itis/ colit is 2023 024 [facility], [address] [facility], [place], [address], 03/26/2024 17:27:21 Medication Orders Zolof t 25 mg table t 2024 025 [email or web address], [address] [place] [address], [id number], 09/08/2024 14:23:09 ondan setro n HCl 4 mg table t 2024 025 [facility][id number], [address] [place] [address], [id number], 07/31/2024 15:15:28 nysta tin 100,0 00 unit/ gram topic al cream 2024 025 [facility] #[id number], [address] [place] [address], [id number], 07/31/2024 17:10:58 nysta tin 100,0 00 unit/ gram topic al powde r 2024 025 [facility] #[id number], [address] [place] [address], [id number], 07/31/2024 17:10:46 simva stati n 10 mg table t 2024 025 [facility], [address] [place] [address], [id number], 06/16/2024 14:55:05 proch lorpe razin e albert te 5 mg table t 2024 025 [facility], [address] [place] [address], [id number], 07/31/2024 15:26:34 pheny toin sodiu m exten ded 100 mg capsu le 2024 025 [facility], [address] [place] [address], [id number], 05/22/2024 14:58:09 panto prazo le 20 mg table t,del ayed relea se 2024 025 [facility], [address] [place] [address], [id number], 05/22/2024 14:58:08 Accu- Chek Khadijah Plus test strip s 2024 025 [facility], [address] [place] [address], [id number], 05/22/2024 14:58:08 Januv ia 100 mg table t 2024 025 [facility], [address] [place] [address], [address], 05/22/2024 14:58:08 valsa rtan 80 mg table t 2024 025 [facility], [address] [place] [address], [address], 05/22/2024 14:58:08 Patient TargetsNo targets recorded. Patient InstructionsNo instructions recorded. Reason for Referral Frame Expander Referral for Pa in in pelvis Referring Physician: Ji Castillo, Internal Medicine, Encounter Date: 05/22/2024 Results Created Date Observation Date Name Description Value Unit Range Abnormal Flag Note LastModifiedBy Organization Detail LastModifiedTime 05/22/19 25 05/22/2024 COMPL ETE BLOOD COUNT white blood cells 8.0 10*3/ uL 3.8-10 .8 normal Not Available [facility], [place], [address], 05/22/2024 19:11:17 05/22/19 25 05/22/2024 COMPL ETE BLOOD COUNT red blood cells 4.38 10*6/ uL 3.80-5 .20 normal Not Available [facility] [address] [place] [address], [address], 05/22/2024 19:11:17 05/22/19 25 05/22/2024 COMPL ETE BLOOD COUNT hemoglobin 14.2 g/dL 12.0-1 6.0 normal Not Available [facility] [address] [place] [address], [address], 05/22/2024 19:11:17 05/22/19 25 05/22/2024 COMPL ETE BLOOD COUNT hematocrit 42.7 % 35.0-4 7.0 normal Not Available [facility] [address] [place] [address], [address], 05/22/2024 19:11:17 05/22/19 25 05/22/2024 COMPL ETE BLOOD COUNT MCV 98 fL 80-100 normal Not Available [facility] [address] [place] [address], [address], 05/22/2024 19:11:17 05/22/19 25 05/22/2024 COMPL ETE BLOOD COUNT MCH 33 pg 26-35 normal Not Available [facility] [address] [place] [address], [address], 05/22/2024 19:11:17 05/22/19 25 05/22/2024 COMPL ETE BLOOD COUNT MCHC 33 g/dL 32-36 normal Not Available [facility] [address] [place] [address], [address], 05/22/2024 19:11:17 05/22/19 25 05/22/2024 COMPL ETE BLOOD COUNT RDW 13.4 % 11.0-1 5.0 normal Not Available [facility] [address] [place] [address], [address], 05/22/2024 19:11:17 05/22/19 25 05/22/2024 COMPL ETE BLOOD COUNT MPV 9.5 fL 6.2-10 .5 normal Not Available [facility] [address] [place] [address], [address], 05/22/2024 19:11:17 05/22/19 25 05/22/2024 COMPL ETE BLOOD COUNT platelet count 279 10*3/ uL 150-40 0 normal Not Available [facility] [address] [place] [address], [address], 05/22/2024 19:11:17 05/22/19 25 05/22/2024 COMPL ETE BLOOD COUNT neutrophil,a bsolute 4.8 10*3/ uL 1.6-8. 4 normal Not Available [facility] [address] [place] [address], [address], 05/22/2024 19:11:17 05/22/19 25 05/22/2024 COMPL ETE BLOOD COUNT lymphocyte,a bsolute 2.7 10*3/ uL 0.4-5. 1 normal Not Available [facility] [address] [place] [address], [address], 05/22/2024 19:11:17 05/22/19 25 05/22/2024 COMPL ETE BLOOD COUNT monocyte,abs olute 0.5 10*3/ uL 0.0-1. 2 normal Not Available [facility] [address] [place] [address], [address], 05/22/2024 19:11:17 05/22/19 25 05/22/2024 COMPL ETE BLOOD COUNT eosinophil,a bsolute 0.0 10*3/ uL 0.0-0. 8 normal Not Available [facility] [address] [place] [address], [address], 05/22/2024 19:11:17 05/22/19 25 05/22/2024 COMPL ETE BLOOD COUNT basophil,abs olute 0.0 10*3/ uL 0.0-0. 3 normal Not Available [facility] [address] [place] [address], [address], 05/22/2024 19:11:17 05/22/19 25 05/22/2024 COMPL ETE BLOOD COUNT % neutrophils 59.7 % 42.0-7 8.0 normal Not Available [facility] [address] [place] [address], [address], 05/22/2024 19:11:17 05/22/19 25 05/22/2024 COMPL ETE BLOOD COUNT % lymphocytes 33.1 % 11.0-4 7.0 normal Not Available [facility] [address] [place] [address], [address], 05/22/2024 19:11:17 05/22/19 25 05/22/2024 COMPL ETE BLOOD COUNT % monocytes 6.1 % 0.0-11 .0 normal Not Available [facility] [address] [place] [address], [address], 05/22/2024 19:11:17 05/22/19 25 05/22/2024 COMPL ETE BLOOD COUNT % eosinophils 0.6 % 0.0-7. 0 normal Not Available [facility] [address] [place] [address], [address], 05/22/2024 19:11:17 05/22/19 25 05/22/2024 COMPL ETE BLOOD COUNT % basophils 0.5 % 0.0-3. 0 normal Not Available [facility] [address] [place] [address], [address], 05/22/2024 19:11:17 05/22/19 25 05/22/2024 COMPL ETE BLOOD COUNT nucleated red cells 0.1 % 0.0-0. 9 normal Not Available [facility] [address] [place] [address], [address], 05/22/2024 19:11:17 05/22/19 25 05/22/2024 COMPL ETE BLOOD COUNT nucleated RBCs, absolute 0.01 10*3/ uL not estab. normal Not Available [facility] [address] [place] [address], [address], 05/22/2024 19:11:17 05/22/19 25 05/22/2024 GLYCO HEMOG LOBIN A1C glyco HGB A1C 6.3 % 0.0-5. 6 high Not Available [facility] [address] [place] [address], [address], 05/22/2024 19:30:25 05/22/19 25 05/22/2024 GLYCO HEMOG LOBIN A1C estimated avg. glucose 134 mg/dL _(gloria c) normal A1c value s betwe en 5.7% to 6.4% indic ate predi abete s. Resul ts 6.5% or great er is diagn ostic of diabe anival. Ameri can Diabe anival Assoc iatio n (diab etes. org) Not Available [facility] [address] [place] [address], [address], 05/22/2024 19:30:25 05/22/19 25 05/22/2024 MICRO ALBUM IN/CR EAT RATIO microalbumin , random 85 mg/L 0-19 high Not Available [facility] [address] [place] [address], [address], 05/22/2024 20:00:24 05/22/19 25 05/22/2024 MICRO ALBUM IN/CR EAT RATIO creatinine,u r,random 203 mg/dL normal NO HARVEY L RANGE ESTAB LISHE D FOR RANDO M URINE . Not Available [facility] [address] [place] [address], [address], 05/22/2024 20:00:24 05/22/19 25 05/22/2024 MICRO ALBUM IN/CR EAT RATIO MA/creatinin e ratio 42 mcg/m g_cre at 0-29 high Not Available [facility] [address] [place] [address], [address], 05/22/2024 20:00:24 05/22/19 25 05/22/2024 COMP. METAB OLIC PANEL glucose 144 mg/dL 74-100 high Not Available [facility] [address] [place] [address], [address], 05/22/2024 20:12:30 05/22/19 25 05/22/2024 COMP. METAB OLIC PANEL blood urea nitrogen 5 mg/dL 6-20 low Not Available [facility] [address] [place] [address], [address], 05/22/2024 20:12:30 05/22/19 25 05/22/2024 COMP. METAB OLIC PANEL creatinine 0.52 mg/dL 0.50-0 .95 normal Not Available [facility] [address] [place] [address], [address], 05/22/2024 20:12:30 05/22/19 25 05/22/2024 COMP. METAB OLIC PANEL BUN/creatini ne ratio 10 (calc ) 10-20 normal Not Available [facility] [address] [place] [address], [address], 05/22/2024 20:12:30 05/22/19 25 05/22/2024 COMP. METAB OLIC PANEL sodium 138 mmol/ L 136-14 5 normal Not Available [facility] [address] [place] [address], [address], 05/22/2024 20:12:30 05/22/19 25 05/22/2024 COMP. METAB OLIC PANEL potassium 4.3 mmol/ L 3.4-5. 0 normal Not Available [facility] [address] [place] [address], [address], 05/22/2024 20:12:30 05/22/19 25 05/22/2024 COMP. METAB OLIC PANEL chloride 101 mmol/ L 98-107 normal Not Available [facility] [address] [place] [address], [address], 05/22/2024 20:12:30 05/22/19 25 05/22/2024 COMP. METAB OLIC PANEL carbon dioxide 22 mmol/ L 22-31 normal Not Available [facility] [address] [place] [address], [address], 05/22/2024 20:12:30 05/22/19 25 05/22/2024 COMP. METAB OLIC PANEL anion gap 15 (calc ) 7-25 normal Not Available [facility] [address] [place] [address], [address], 05/22/2024 20:12:30 05/22/19 25 05/22/2024 COMP. METAB OLIC PANEL calcium 9.7 mg/dL 8.6-10 .2 normal Not Available [facility] [address] [place] [address], [address], 05/22/2024 20:12:30 05/22/19 25 05/22/2024 COMP. METAB OLIC PANEL total protein 7.3 g/dL 6.4-8. 3 normal Not Available [facility] [address] [place] [address], [address], 05/22/2024 20:12:30 05/22/19 25 05/22/2024 COMP. METAB OLIC PANEL albumin 4.3 g/dL 3.5-5. 2 normal Not Available [facility] [address] [place] [address], [address], 05/22/2024 20:12:30 05/22/19 25 05/22/2024 COMP. METAB OLIC PANEL globulin 3.0 1.5-4. 5 normal Not Available [facility] [address] [place] [address], [address], 05/22/2024 20:12:30 05/22/19 25 05/22/2024 COMP. METAB OLIC PANEL albumin/glob ulin ratio 1.4 (calc ) 1.1-2. 5 normal Not Available [facility] [address] [place] [address], [address], 05/22/2024 20:12:30 05/22/19 25 05/22/2024 COMP. METAB OLIC PANEL bilirubin, total 0.3 mg/dL 0.1-1. 2 normal Not Available [facility] [address] [place], [address], 05/22/2024 20:12:30 05/22/19 25 05/22/2024 COMP. METAB OLIC PANEL alkaline phosphatase 100 U/L 30-121 normal Not Available [facility] [address] [place] [address], [address], 05/22/2024 20:12:30 05/22/19 25 05/22/2024 COMP. METAB OLIC PANEL AST 24 U/L 0-32 normal Not Available [facility] [address] [place] [address], [address], 05/22/2024 20:12:30 05/22/19 25 05/22/2024 COMP. METAB OLIC PANEL ALT 23 U/L 0-33 normal Not Available [facility] [address] [place] [address], [address], 05/22/2024 20:12:30 05/22/19 25 05/22/2024 COMP. METAB OLIC PANEL GFR 98 >= 60 normal NOT E New calcu latio n for GFR (CKD- EPI 2020) is formu lated witho ut race adjus tment facto rs at the recom menda tion of the [facility] ty of Nephr ology . This calcu latio n has not been valid ated in pregn ant women . For pedia tric patie nts refer to https ://yolanda good.rosario rg/pr ofess ional s/KDO QI/gf r_cal culat orPed Not Available [facility] [address] [place] [address], [address], 05/22/2024 20:12:30 05/22/19 25 05/22/2024 LIPID PROFI LE HDL cholesterol 76 mg/dL 50-242 normal Not Available [facility] [address] [place] [address], [address], 05/22/2024 20:12:32 05/22/19 25 05/22/2024 LIPID PROFI LE triglyceride s 189 mg/dL 0-149 high TRIGL YCERI DE RANGE S HARVEY L: < 150 BORDE RLINE HIGH: 150 - 199 HIGH: 200 - 499 VERY HIGH: > OR = 500 Not Available [facility] [address] [place] [address], [address], 05/22/2024 20:12:32 05/22/19 25 05/22/2024 LIPID PROFI LE cholesterol 183 mg/dL 0-199 normal YAKOV STERO L (TOTA L) RANGE S YOHANA ABLE: < 200 BORDE RLINE : 200 - 239 HIGHE R RISK: > 239 Not Available [facility] [address] [place] [address], [address], 05/22/2024 20:12:32 05/22/19 25 05/22/2024 LIPID PROFI LE LDL cholesterol 69 mg/dL _(gloria c) 0-99 normal LDL YAKOV STERO L RANGE S OPTIM AL: < 100 NEAR/ ABOVE OPTIM AL: 100 - 129 BORDE RLINE HIGH: 130 - 159 HIGH: 160 - 189 VERY HIGH: > OR = 190 Not Available [facility] [address] [place] [address], [address], 05/22/2024 20:12:32 08/01/19 25 07/31/2024 COMPL ETE BLOOD COUNT white blood cells 8.9 10*3/ uL 3.8-10 .8 normal Not Available [facility] [address] [place] [address], [address], 07/31/2024 19:25:22 08/01/19 25 07/31/2024 COMPL ETE BLOOD COUNT red blood cells 4.41 10*6/ uL 3.80-5 .20 normal Not Available [facility] [address] [place] [address], [address], 07/31/2024 19:25:22 08/01/19 25 07/31/2024 COMPL ETE BLOOD COUNT hemoglobin 14.8 g/dL 12.0-1 6.0 normal Not Available [facility] [address] [place] [address], [address], 07/31/2024 19:25:22 08/01/1907/31/2024 COMPL ETE BLOOD COUNT hematocrit 42.4 % 35.0-4 7.0 normal Not Available [facility] [address] [place] [address], [address], 07/31/2024 19:25:22 08/01/19 25 07/31/2024 COMPL ETE BLOOD COUNT MCV 96 fL 80-100 normal Not Available [facility] [address] [place] [address], [address], 07/31/2024 19:25:22 08/01/19 25 07/31/2024 COMPL ETE BLOOD COUNT MCH 34 pg 26-35 normal Not Available [facility] [address] [place] [address], [address], 07/31/2024 19:25:22 08/01/1907/31/2024 COMPL ETE BLOOD COUNT MCHC 35 g/dL 32-36 normal Not Available [facility] [address] [place] [address], [address], 07/31/2024 19:25:22 08/01/19 25 07/31/2024 COMPL ETE BLOOD COUNT RDW 12.9 % 11.0-1 5.0 normal Not Available [facility] [address] [place] [address], [address], 07/31/2024 19:25:22 08/01/19 25 07/31/2024 COMPL ETE BLOOD COUNT MPV 10.3 fL 6.2-10 .5 normal Not Available [facility] [address] [place] [address], [address], 07/31/2024 19:25:22 08/01/19 25 07/31/2024 COMPL ETE BLOOD COUNT platelet count 242 10*3/ uL 150-40 0 normal Not Available [facility] [address] [place] [address], [address], 07/31/2024 19:25:22 08/01/1907/31/2024 COMPL ETE BLOOD COUNT neutrophil,a bsolute 5.8 10*3/ uL 1.6-8. 4 normal Not Available [facility] [address] [place] [address], [address], 07/31/2024 19:25:22 08/01/19 25 07/31/2024 COMPL ETE BLOOD COUNT lymphocyte,a bsolute 2.4 10*3/ uL 0.4-5. 1 normal Not Available [facility] [address] [place] [address], [address], 07/31/2024 19:25:22 08/01/19 25 07/31/2024 COMPL ETE BLOOD COUNT monocyte,abs olute 0.6 10*3/ uL 0.0-1. 2 normal Not Available [facility] [address] [place] [address], [address], 07/31/2024 19:25:22 08/01/19 25 07/31/2024 COMPL ETE BLOOD COUNT eosinophil,a bsolute 0.1 10*3/ uL 0.0-0. 8 normal Not Available [facility] [address] [place] [address], [address], 07/31/2024 19:25:22 08/01/19 25 07/31/2024 COMPL ETE BLOOD COUNT basophil,abs olute 0.0 10*3/ uL 0.0-0. 3 normal Not Available [facility] [address] [place] [address], [address], 07/31/2024 19:25:22 08/01/19 25 07/31/2024 COMPL ETE BLOOD COUNT % neutrophils 64.5 % 42.0-7 8.0 normal Not Available [facility] [address] [place] [address], [address], 07/31/2024 19:25:22 08/01/19 25 07/31/2024 COMPL ETE BLOOD COUNT % lymphocytes 27.4 % 11.0-4 7.0 normal Not Available [facility] [address] [place] [address], [address], 07/31/2024 19:25:22 08/01/19 25 07/31/2024 COMPL ETE BLOOD COUNT % monocytes 6.8 % 0.0-11 .0 normal Not Available [facility] [address] [place] [address], [address], 07/31/2024 19:25:22 08/01/19 25 07/31/2024 COMPL ETE BLOOD COUNT % eosinophils 0.8 % 0.0-7. 0 normal Not Available [facility] [address] [place] [address], [address], 07/31/2024 19:25:22 08/01/19 25 07/31/2024 COMPL ETE BLOOD COUNT % basophils 0.5 % 0.0-3. 0 normal Not Available [facility] [address] [place] [address], [address], 07/31/2024 19:25:22 08/01/19 25 07/31/2024 COMPL ETE BLOOD COUNT nucleated red cells 0.1 % 0.0-0. 9 normal Not Available [facility] [address] [place] [address], [address], 07/31/2024 19:25:22 08/01/19 25 07/31/2024 COMPL ETE BLOOD COUNT nucleated RBCs, absolute 0.01 10*3/ uL not estab. normal Not Available [facility] [address] [place] [address], [address], 07/31/2024 19:25:22 08/01/19 25 07/31/2024 GLYCO HEMOG LOBIN A1C glyco HGB A1C 6.3 % 0.0-5. 6 high Not Available [facility] [address] [place], [address], 07/31/2024 19:28:15 08/01/19 25 07/31/2024 GLYCO HEMOG LOBIN A1C estimated avg. glucose 134 mg/dL _(gloria c) normal A1c value s betwe en 5.7% to 6.4% indic ate predi abete s. Resul ts 6.5% or great er is diagn ostic of diabe anival. Ameri can Diabe anival Assoc iatio n (diab etes. org) Not Available [facility] [address] [place] [address], [address], 07/31/2024 19:28:15 08/01/19 25 07/31/2024 COMP. METAB OLIC PANEL glucose 107 mg/dL 74-100 high Not Available [facility] [address] [place] [address], [address], 07/31/2024 19:30:04 08/01/19 25 07/31/2024 COMP. METAB OLIC PANEL blood urea nitrogen 4 mg/dL 6-20 low RESUL TS RECHE CKED Not Available [facility] [address] [place], [address], 07/31/2024 19:30:04 08/01/19 25 07/31/2024 COMP. METAB OLIC PANEL creatinine 0.57 mg/dL 0.50-0 .95 normal Not Available [facility] [address] [place] [address], [address], 07/31/2024 19:30:04 08/01/19 25 07/31/2024 COMP. METAB OLIC PANEL BUN/creatini ne ratio 7 (calc ) 10-20 low Not Available [facility] [address] [place] [address], [address], 07/31/2024 19:30:04 08/01/19 25 07/31/2024 COMP. METAB OLIC PANEL sodium 138 mmol/ L 136-14 5 normal Not Available [facility] [address] [place] [address], [address], 07/31/2024 19:30:04 08/01/19 25 07/31/2024 COMP. METAB OLIC PANEL potassium 3.8 mmol/ L 3.4-5. 0 normal Not Available [facility] [address] [place] [address], [phone], 07/31/2024 19:30:04 08/01/19 25 07/31/2024 COMP. METAB OLIC PANEL chloride 98 mmol/ L 98-107 normal Not Available [facility] [address] [place] [address], [phone], 07/31/2024 19:30:04 08/01/19 25 07/31/2024 COMP. METAB OLIC PANEL carbon dioxide 25 mmol/ L 22-31 normal Not Available [facility] [address] [place] [address], [phone], 07/31/2024 19:30:04 08/01/19 25 07/31/2024 COMP. METAB OLIC PANEL anion gap 15 (calc ) 7-25 normal Not Available [facility] [address] [place] [address], [phone], 07/31/2024 19:30:04 08/01/19 25 07/31/2024 COMP. METAB OLIC PANEL calcium 10.0 mg/dL 8.6-10 .2 normal Not Available [facility] [address] [place] [address], [phone], 07/31/2024 19:30:04 08/01/19 25 07/31/2024 COMP. METAB OLIC PANEL total protein 7.3 g/dL 6.4-8. 3 normal Not Available [facility] [address] [place] [address], [phone], 07/31/2024 19:30:04 08/01/19 25 07/31/2024 COMP. METAB OLIC PANEL albumin 4.5 g/dL 3.5-5. 2 normal Not Available [facility] [address] [place] [address], [phone], 07/31/2024 19:30:04 08/01/19 25 07/31/2024 COMP. METAB OLIC PANEL globulin 2.8 1.5-4. 5 normal Not Available [facility] [address] [place] [address], [id number], 07/31/2024 19:30:04 08/01/19 25 07/31/2024 COMP. METAB OLIC PANEL albumin/glob ulin ratio 1.6 (calc ) 1.1-2. 5 normal Not Available [facility] [address] [place] [address], [address], 07/31/2024 19:30:04 08/01/19 25 07/31/2024 COMP. METAB OLIC PANEL bilirubin, total 0.3 mg/dL 0.1-1. 2 normal Not Available [facility] [address] [place] [address], [phone], 07/31/2024 19:30:04 08/01/19 25 07/31/2024 COMP. METAB OLIC PANEL alkaline phosphatase 91 U/L 30-121 normal Not Available [facility] [address] [place] [address], [address], 07/31/2024 19:30:04 08/01/19 25 07/31/2024 COMP. METAB OLIC PANEL AST 30 U/L 0-32 normal Not Available [facility] [address] [place], [address], 07/31/2024 19:30:04 08/01/19 25 07/31/2024 COMP. METAB OLIC PANEL ALT 33 U/L 0-33 normal Not Available [facility] [address] [place] [address], [phone], 07/31/2024 19:30:04 08/01/19 25 07/31/2024 COMP. METAB OLIC PANEL GFR 96 >= 60 normal NOT E New calcu latio n for GFR (CKD- EPI 2020) is formu lated witho ut race adjus tment facto rs at the recom menda tion of the [employer] ation and Diego Marcume ty of Nephr ology . This calcu latio n has not been valid ated in pregn ant women . For pedia tric patie nts refer to [email or web address] :[email or web address] good.[email or web address] rg/pr ofess ional s/KDO QI/gf r_cal culat orPed Not Available [facility] [address] [place] [address], [phone], 07/31/2024 19:30:04 03/26/20 24 03/26/2024 CT, abdom en + pelvi s, w/o contr ast No observ ation record ed. [email or web address] [facility] [address] [facility], [place], [address], 04/09/2024 15:50:16 03/27/20 24 03/26/2024 CT, abdom en + pelvi s, w/o contr ast No observ ation record ed. [email or web address] Not Available 03/27 16:07:45 Result Notes None recorded. Problems Name Problem SNOMED Code Status Onset Date Resolution Date Notes Provider Name and Address Organization Details Recorded Time Type 2 diabetes mellitus without complicat ion 296614618 Active 2022 JI MOSQUERA LL, DO [address] [place] [address], [phone] , [facility] 3 17:04:52 Essential hypertens ion 95210215 Active 2022 JI SANCHEZ, DO [address] [place] [address], [address] , [facility] 3 17:04:53 Mixed hyperlipi demia 207662048 Active 2022 JI SANCHEZ, DO [address] [place] [address], [address] [place] [address] , [facility] 3 17:04:54 Seizure disorder 974635947 Active 2022 JI SANCHEZ, DO [address] [place] [address], [address] [place] [address] , [facility] 3 17:04:56 Obesity 642059826 Active Not Available [facility] 4 14:08:00 Morbid obesity 649003284 Active Not Available [facility] 5 14:16:35 Renal disorder due to type 2 diabetes mellitus 779461179 Active Not Available [facility] 5 14:16:57 Cerebrova scular disease 15916691 Active 2024 JI SANCHEZ, DO [address] [place] [address], [address] , [facility] 5 14:17:48 Irritable bowel syndrome character ized by constipat ion 912185296 Active 2024 JI SANCHEZ, DO [address] [place] [address], [address] , [facility] 5 14:17:51 Urinary tract infectiou s disease 49122931 Active 2015 From Automated Load;Provi paulina: Choi, Angel;St atus: Active Not Available [facility] 6 08:01:39 Problem Notes None recorded. Medical Equipment None Reported. Allergies Allergen ID Allergen Name Allergen Category Reaction Reaction Severity Criticality Documentation Date Start Date Code Code System Note Provider Name and Address Organization Details Recorded Time 20451202 Tequin medicatio n Not available Not available Not available 02/23/20162005 24396 4 RxNorm Comme nt: Creat ed By: Saira Isabel ;Crea selene Date: 01/15 8:27: 00 AM; Not Available [facility] 6 12:27:44 865363 Flagyl medicatio n Not available Not available Not available 02/23/2016201586 6 RxNorm Comme nt: Creat ed By: John meadows Date: 2015 12:26 :53 PM; Not Available [facility] 6 12:27:44 488242 aspirin medicatio n Not available Not available Not available 02/23/20162005 1191 RxNorm Comme nt: Creat ed By: Saira Isabel ;Crea selene Date: 01/15 8:27: 28 AM; Not Available [facility] 6 12:37:17 416803 Substance with sulfonami de structure and antibacte rial mechanism of action (substanc e) medicatio n Not available Not available Not available 02/24/20162005 78772 8003 SNOMED Comme nt: Creat ed By: Saira Isabel ;Crea selene Date: 01/15 8:24: 43 AM; Not Available [facility] 6 03:13:54 523264 pertussis vaccine medicatio n Not available Not available Not available 02/24/20162005 8080 RxNorm Comme nt: Creat ed By: Saira Isabel ;Crea selene Date: 01/15 8:27: 39 AM; Not Available [facility] 6 03:13:54 266118 codeine medicatio n Not available Not available Not available 02/24/20162015 2670 RxNorm Comme nt: Creat ed By: John zamudio d Date: 2015 12:27 :13 PM; Not Available [facility] 6 03:13:54 026689 tetracycl ine hydrochlo ride medicatio n Not available Not available Not available 02/24/20162005 40867 6 RxNorm Comme nt: Creat ed By: Saira morton Date: 01/15 8:26: 48 AM; Not Available [facility] 6 10:28:13 Medications Name Sig Start Date [...] Astepro 137 mcg (0.1 %) nasal spray Owen 2 sprays twice a day by intranas [...] 137 mcg-fluti casone 50 mcg/spray nasal spray Owen 1 spray twice a day by intranas [...] TOPICALL Y TO AFFECTED AREA TWICE DAILY 07/31 completed Not Available Not Available Not Available Vitals Date Recorded Body height Body mass index (BMI) Body weight Body temperature Heart rate Oxygen saturation Oxygen saturation in Arterial blood by Pulse oximetry Systolic blood pressure Diastolic blood pressure Provider Name and Address Organization Details Last Updated DateTime 5 149.86 cm 32.8 kg/m2 82321.0 6 g 97.6 [degF] 91 /min 96 % 96 % 156 mm[Hg] 72 mm[Hg] Bambi Silva [facility] 5 14:30:02 Date Recorded Body height Body mass index (BMI) Body weight Heart rate Oxygen saturation Oxygen saturation in Arterial blood by Pulse oximetry Systolic blood pressure Diastolic blood pressure Provider Name and Address Organization Details Last Updated DateTime 5 149.86 cm 32.3 kg/m2 85641.7 8 g 84 /min 96 % 96 % 144 mm[Hg] 62 mm[Hg] [facility] 5 14:57:58 Date Recorded Body height Body mass index (BMI) Body weight Heart rate Oxygen saturation Oxygen saturation in Arterial blood by Pulse oximetry Systolic blood pressure Diastolic blood pressure Provider Name and Address Organization Details Last Updated DateTime 5 149.86 cm 31.2 kg/m2 60011.3 2 g 73 /min 97 % 97 % 145 mm[Hg] 65 mm[Hg] [facility] 5 14:20:46 Date Recorded Body height Body mass index (BMI) Body weight Heart rate Oxygen saturation Oxygen saturation in Arterial blood by Pulse oximetry Systolic blood pressure Diastolic blood pressure Provider Name and Address Organization Details Last Updated DateTime 5 149.86 cm 31.6 kg/m2 87007.5 1 g 71 /min 96 % 96 % 128 mm[Hg] 72 mm[Hg] [facility] 5 13:56:03 Date Recorded Body height Body mass index (BMI) Body weight Heart rate Oxygen saturation Oxygen saturation in Arterial blood by Pulse oximetry Body temperature Systolic blood pressure Diastolic blood pressure Provider Name and Address Organization Details Last Updated DateTime 4 149.86 cm 34.8 kg/m2 94008.9 9 g 105 /min 95 % 95 % 98.4 [degF] 166 mm[Hg] 90 mm[Hg] Marian Guzman [facility] 4 14:51:56 Social History Question Answer Notes LastModified by [email or web address] Details LastModified Time Tobacco Smoking Status [facility] 14:17:59 What Was The Date Of Your Most Recent Tobacco Screening? 11/18/2023 [email or web address] Information not available 11/18/2023 Has Tobacco Cessation Counseling Been Provided? No Information not available 02/13/2023 Sex: Unknown Functional Status Question Answer Note LastModified by [email or web address] Details LastModified Time Do you use any [...] high-dose, quadrivalent, PF 01/05/2022 completed Marian Guzman [facility] 03/26/2024 14:45:01 Influenza, high-dose, quadrivalent, PF 01/22/2023 completed Marian Guzman [facility] 03/26/2024 14:45:01 COVID-19, mRNA, LNP-S, PF, 30 mcg/0.3 mL dose 05/07/2020 completed Marian Guzman [facility] 03/26/2024 14:45:01 COVID-19, mRNA, LNP-S, PF, 30 mcg/0.3 mL dose 05/28/2020 completed Marian Guzman [facility] 03/26/2024 14:45:01 COVID-19, mRNA, LNP-S, PF, 30 mcg/0.3 mL dose 12/26/2020 completed Marian Guzman [facility] 03/26/2024 14:45:01 COVID-19, mRNA, LNP-S, PF, 30 mcg/0.3 mL dose, jacob-sucrose 08/18/2021 completed Marian Guzman [facility] 03/26/2024 14:45:01 COVID-19, mRNA, LNP-S, bivalent, PF, 30 mcg/0.3 mL dose 01/05/2022 completed Marian Guzman [facility] 03/26/2024 14:45:01 COVID-19, mRNA, LNP-S, PF, jacob-sucrose, 30 mcg/0.3 mL 01/22/2023 completed Marian Guzman [facility] 03/26/2024 14:45:01 RSV, bivalent, protein subunit RSVpreF, diluent reconstituted, 0.5 mL, PF 03/06/2023 completed Marian Guzman [facility] 03/26/2024 14:54:50 Influenza, high-dose, trivalent, PF 01/27/2024 completed Snehalshaun Sawyer [facility] 01/27/2024 14:45:43 Past Encounters Encounter ID Performer Location Encounter Start Date Encounter Closed Date Diagnosis/Indication Diagnosis SNOMED-CT Code Diagnosis ICD10 Code Diagnosis Note [id number] [facility] [address] 07/02/2016 21:23:31 07/02/2016 21:23:31 [id number] JI SANCHEZ, DO [facility] [address] [place] [address] 02/13/2023 14:00:11 02/13/2023 14:34:19 Seizure disorder 917644950 G40.909 on phenyoin tid- somewehre went to qid- and phenobarbi deep-I am unsure what is exactly happening or what exactly her symptoms are, I doubt there is much to change here other than to give her phenytoin 4 times daily, she has not been evaluated by neurologis t in many years, not sure if she is having breakthrou gh seizures or not, recommend further evaluation , although I think she is probably pretty resistant to any medication changes at this stage Type 2 carlos enrique betes mellitus without complication 284837769 E11.9 on januvia., We will check A1c chemistry today, little concern her blood glucose could be making her feel poorly as well Essential hypertension 40055686 I10 on arb- BP acceptable Mixed hyperlipidemia 267 416478 E78.2 Recheck to theon statin. LDL goal less than 100 80 [id number] JI SANCHEZ, DO [facility] [address] [place] [address] 05/20/2023 13:48:43 05/20/2023 14:33:05 Adult health examination 656349674 Z00.00 Up-to-date on routine health maintenanc e Essential hypertension 08981333 I10 on arb- BP acceptable Hyperlipidemia 85066832 E78.5 On statin, tolerating well Seizure disorder 8530045 02 G40.909 seeing neuro now. Gastroesop hageal reflux disease without esophagitis 662258781 K21.9 Symptoms reasonably well-contr olled on PPI, antinausea medication as needed Type 2 carlos enrique betes mellitus without complication 923652202 E11.9 on januvia., aic 6.9 11, LDL 78 [id number] JI SANCHEZ, DO [facility] [address] [place] [address] 11/18/2023 13:40:31 11/18/2023 14:23:00 Obesity 126422475 E66.01 Weight has been pretty stable, no drastic changes, discussed dietary changes, physical activity Essential hypertension 46571296 I10 on arb-blood pressure doing well. Check electrolyt es kidney function Hyperlipidemia 38390127 E78.5 On statin, tolerating wellGoal LDL less than 70, was 78 2022 Seizure disorder 9236537 02 G40.909 seeing neuro now.11/17-n eurologist referred her to recently left the practice, she is stable, evaluation was unrevealin g, we will simply continue her medication for now Gastroesop hageal reflux disease without esophagitis 927956789 K21.9 Symptoms reasonably well-contr olled on PPI, antinausea medication as needed Type 2 carlos enrique betes mellitus without complication 229561901 E11.9 on januvia., aic 6.9 02/21, LDL 788/- surendra labs today . tolerates januva well. [id number] JI SANCHEZ, DO [facility] [address] [place] [address] 01/27/2024 14:24:53 01/28/2024 04:16:26 Active immunization 26396084 Z23 [id number] MOLLY WU PA-C [facility] [address] [facility] [place] [address] 03/26/2024 14:41:05 03/26/2024 15:36:43 Left lower quadrant pain 213167633 R10.32 CT of the abd pelvis ordered today.Pt to be notified of results when received.S trict ER precaution s given to pt at the time of apt. PT encouraged to cont bowel rest, BRAT diet, and hydration. Diarrhea 84747621 R19.7 History of cholecystectomy 800599454 Z90.49 Essential hypertension 50079545 I10 Medication decision made based on pt's allergies and co-morbid conditions including: HTN, T2DM Type 2 carlos enrique betes mellitus without complication 074722137 E11.9 Seizure disorder 7634973 02 G40.909 [id number] JI MOSQUERA LL, DO [facility] [address] [place] [address] 05/22/2024 13:53:07 05/22/2024 15:04:22 Essential hypertension 63071457 I10 Medication decision made based on pt's allergies and co-morbid conditions including: HTN, T2DM Hyperlipidemia 86575666 E78.5 On statin, tolerating wellGoal LDL less than 70, was 78 /- LDL 1012/-on statin tolerating well check lipids today Type 2 carlos enrique betes mellitus without complication 447936992 E11.9 on januvia., aic 6.9 02/21, LDL 788/19- surendra labs today . tolerates januva well.11/22- aic 7.05/26-ch mally routine labs, microalbum in, no complicati ons that we know of Gastroesop hageal reflux disease without esophagitis 741170453 K21.9 Symptoms reasonably well-contr olled on PPI, antinausea medication as needed05/26 - symptoms ok. EGD ok Seizure disorder 6264629 02 G40.909 seeing neuro now.11/17-n eurologist referred her to recently left the practice, she is stable, evaluation was unrevealin g, we will simply continue her medication for now05/26 - stable Nausea and vomiting 1692 1999 R11.2 Obesity 247540510 E66.01 Weight has been pretty stable, no drastic changes, discussed dietary changes, physical activity Adult [facility] examination 693599344 Z00.00 Up-to-date on routine health maintenkeyshawn e Screening for malignant neoplasm of colon 482924404 Z12.11 05/26- normal Pain in pelvis 12321266 R10.2 pain better after bowel prep. CT ok. no recent glass deposition tender. Forgetful 98757098 R41.3 Patient has become a little bit more forgetful, has noticed a few things, she has had some stressors with the loss of her mother, did not do great on the Mini-Menta l status examinatio n we will reevaluate in a few weeks [id number] JI MOSQUERA , DO [facility] [address] [place] [address],[address] [place] [address] 06/16/2024 14:20:48 06/16/2024 15:41:36 Seizure disorder 265483134 G40.909 seeing neuro now.11/17-n eurologist referred her to recently left the practice, she is stable, evaluation was unrevealin g, we will simply continue her medication for - stable06/23 - documented seizure- on meds- seeing neuro Pruritic rash 31636755 L 28.2 Suspect fungal, nystatin powder and cream [id number] JI MOSQUERA , DO [facility] [place] [id number] [facility] [place] [address] 07/31/2024 14:01:00 07/31/2024 15:45:25 Pruritic rash 76195191 L28.2 Suspect fungal, nystatin powder and cream08/23- seems better. no further powder Seizure disorder 0167018 02 G40.909 seeing neuro now.11/17-n eurologist referred her to recently left the practice, she is stable, evaluation was unrevealin g, we will simply continue her medication for - stable06/23 - documented seizure- on meds- seeing [place] neuro08/23- on phentoyn and keppra - seeing Meño in [facility]- did EEG. n [place] sleep test scheduled- then follow up-dont know results. Abnormal weight loss 267 055967 R63.4 08/23-charley rning, but felt to be multifacto rial, recent EGD was normal, recheck labs today Essential hypertension 99485390 I10 Medication decision made based on pt's allergies and co-morbid conditions including: HTN, T2DM08/23-v alsartan 80, might need to decrease blood pressure medicine as weight drops Hyperlipidemia 48263352 E78.5 On statin, tolerating wellGoal LDL less than 70, was 78 - LDL 10105/26-on statin tolerating well check lipids today08/23- recent escalation of high intensity statin. Seems to be tolerating okay doubt her GI effects are from that Type 2 carlos enrique betes mellitus without complication 175499986 E11.9 on januvia., aic 6.9 02/21, LDL 788/19- surendra labs today . tolerates januva well.11/22- aic 7.05/26-ch mally routine labs, microalbum in, no complicati ons that we know of08/23- losing weight-rec heck A1c might be able to stop Januvia Gastroesop hageal reflux disease without esophagitis 665350936 K21.9 Symptoms reasonably well-contr olled on PPI, antinausea medication as needed05/26 - symptoms ok. EGD ok08/23-elias rologist was concerned about some of her nausea meds recommende d to try Zofran continue PPI. 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 n house sleep test scheduled- then follow up-dont know results.- no more seizure no med changes Abnormal weight loss 267 686346 R63.4 08/23-charley rning, but felt to be multifacto rial, recent EGD was normal, recheck labs today09/23- up 2 lbs. stable Essential hypertension 69891857 I10 Medication decision made based on pt's allergies and co-morbid conditions including: HTN, T2DM08/23-v alsartan 80, might need to decrease blood pressure medicine as weight drops09/23- same. Hyperlipidemia 99622224 E78.5 On statin, tolerating wellGoal LDL less than 70, was 78 - LDL 10105/26-on statin tolerating well check lipids today08/23- recent escalation of high intensity statin. Seems to be tolerating okay doubt her GI effects are from that Gastroesop hageal reflux disease without esophagitis 931674478 K21.9 Symptoms reasonably well-contr olled on PPI, antinausea medication as needed05/26 - symptoms ok. EGD ok08/23-elias rologist was concerned about some of her nausea meds recommende d to try Zofran continue PPI.09/23-d oing okay on PPI and Zofran Forgetful 74803575 R41.3 Patient has become a little bit more forgetful, has noticed a few things, she has had some stressors with the loss of her mother, did not do great on the Mini-Menta l status examinatio n we will reevaluate in a few weeks08/23- feels better. 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 tolerates januva well.11/22- aic 7.05/26-ch mally routine labs, microalbum in, no complicati ons that we know of08/23- losing weight-rec heck A1c might be able to stop Januvia-ai c 6.3-09/23- DM with +microalbu min.- on melanie. statin.- Continue Januvia,, MELANIE inhibitor, statin Moderate m ajor depression 836056 F32.1 09/23-Patie nt has had depressive symptoms for several years now, has been hesitant to take medication s given her significan t side effects and adverse reactions to medicines, however her mother this year, she has had more health problems with her seizure, seems like her depression symptoms could be worse, she agrees with this, her agrees with this, she is agreeable to low-dose medicine, recommend start low-dose Zoloft, no SI. Follow-up 6 weeks Health Concerns Section Related Observation LastModified by Organization Detai ls LastModified Time None Recorded Concern Status LastModified by Organization Details LastModified Time None Recorded Advance Directives Directive None Recorded Payers Insurance Date Sequence Insurance Name Policy Number Policy Ibrahim Covered Member ID Ibrahim Member ID Guarantor Name 09/05/2024 1 [place] Elizabeth Sykes Sánchez [id number] Elizabeth Sykes Sánchez 09/05/2024 2 [employer] (MEDICARE SUPPLEMENT) Elizabeth Sánchez [id number] Elizabeth Sykes Sánchez Notes Date Note Type Note Provider Name and Address Organization Details Recorded Time 03/26/2024 text/html 73 year old willis [place] patient presents to the office with complaints of diarrhea and abdominal cramping. Unable to keep foods down/no appetite.Patient associates GONZALEZ, chills,Symptoms began over 1 week agoPatient denies fever, N/V Tylenol and Pepto Bismol, somewhat effectiveTried TUMS-- gives her diarrhea Several months/years of diarrhea.Has had gallbladder removed years ago. MOLLY WU PA-C [address] [place] [address], [phone], [facility] 03/27/2024 12:49:47 05/22/2024 text/html Medicare Annual Wellness VisitReported bypatient.Diet and Nutrition:discussed diet improvement Fracture Risk:no history of fractures; no recent explained fracture; no sudden unexplained fractures; no previous musculoskeletal injuries Physical Activity:does not exercise on a regular basis;decreased physical activity;poor physical condition;decondition ed due to sedentary lifestyle Current level of painModerate pain: 06/08 to 08/08 Depression Risk:feels sad, empty, or tearful;loss of energy;history of mood disorders;history of depression Orientation:no disorientation to place;disorientation to time;disorientation to date Concentration and Memory:decreased concentrating ability;memory lapses or loss;forgetting words Speech/Motor difficulties:no speech difficulties; no difficulty expressing formulated concepts; no difficulty with fine manipulative tasks; no difficulty writing/copying; no slowed reaction time; does not knock things over when trying to pick them up Hearing:no loss of hearing Vision:no vision problems Activities of Daily Living:able to bathe with limited or no assistance; able to contol urination and bowels; able to dress with limited or no assistance; able to feed self with limited or no assistance; able to get out of chair or bed with limited or no assistance; able to groom with limited or no assistance; able to toilet with limited or no assistance; no urine leakage or bladder control issues Instrumental Activities of Daily Living:able to do house work with limited or no assistance; able to grocery shop with limited or no assistance; able to manage medications with limited or no assistance; able to manage money with limited or no assistance; able to prepare meals with limited or no assistance; able to use the phone with limited or no assistance Falls Risk Assessment:no frequent falls while walking; no fall in the past year; no fall since last visit; no dizziness/vertigo Home Safety:no unsafe abilio hazzards; no unsafe stairs; no unsafe gas appliances; working smoke/CO detectors; wears protective head gear for biking/high velocity; use of seatbelts; practicing 'safer sex'; no vision or hearing loss while driving; no fire arms; has hand bars in the bathroom/shower; good lighting in the home Medicare Annual Wellness Visit PHQ-9 Score 24 STEADI-Stay Independent 4 Imported from [facility] on 05/22/2024 Patient is 73-year-old female here for annual examination as well as annual wellness visit. She has type 2 diabetes, hypertension hyperlipidemia, longstanding seizure disorder. She had recent EGD and colonoscopy that were both reportedly unremarkable. 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 JI CASTILLO, DO [address] [place], [address], [facility] 05/22/2024 16:57:28 06/16/2024 text/html Patient is 73-year-old female here for follow-up visit, patient has longstanding seizure disorder, however has been well-controlled on current medication for 20+ years, however last week evidently had a EMG proven seizure, felt like it could have been a stroke that possibly incited her seizure. She was evaluated by neurologist at , added Keppra to her phenobarbital. She feels like she is doing okay She has had some changes with her bowels, has also developed a rash on her breast, very itchy. JI CASTILLO, DO [address] [place], [address], [facility] 06/16/2024 17:22:57 07/31/2024 text/html Patient is a 73-year-old female here for follow-up visit.She has diabetes hypertension hyperlipidemia. She has recently suffered an episode of significant seizures, part of her evaluation showed pretty significant cerebrovascular disease with 2 specific areas of blockages, was seen a neurosurgeon who recommended medical management of aspirin and statin. She is also following with a neurologist in [place], she is on phenobarbital as well as Keppra. She is doing okay but not great, she continues to have chronic nausea, poor appetite, slow bowels lower abdominal discomfort.She did see GI in May before her seizure disorder, she had an EGD which was normal. Colonoscopy 4 years ago. Mentally she was very forgetful, says she is getting better JI CASTILLO, DO [address] [place], [address], [facility] 07/31/2024 17:12:13 09/08/2024 text/html Patient is 73-year-old female here for follow-up visit, she has been doing okay this last month, she is following with neurologist in [facility], has had no further seizures, she has diabetes, hypertension and hyperlipidemia. No new acute complaints or concerns JI CASTILLO, DO [address] [place], [address], [facility] 09/08/2024 17:03:55 OBGyn Episode No OBEpisode recorded.
--- OUTSIDE RECORDS SUMMARY | 2024-09-14 19:38 | XMS_ITS | Clinical Summary ---
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 Role Phone MikalgeovannaLakisha bealew Matilde DO Primary Care Provider Jermaine Maki MD Unavailable [phone] Allergies Active Allergy Reactions Criticality Noted Date Comments Aspirin Other - please document in the comment field Low 06/01/2024 GI Upset Codeine Unknown - Patient states they do not know rxn details Low 06/01/2024 Metronidazole Unknown - Patient states they do not know rxn details Low 06/01/2024 Gatifloxacin Other - please document in the comment field Low 01/15/2006 Tequin Pertussis Vaccine Other - please document in the comment field Low 01/15/2006 pertussis vaccine Sulfa Drugs Unknown - Patient states they do not know rxn details Low 06/01/2024 Tetracycline Other - please document in the comment field Low 01/15/2006 tetracycline hydrochloride Medications SITagliptin (Januvia) 100 MG tablet Take 1 tablet (100 mg) by mouth daily. Active pantoprazole (ProtoNix) 20 MG EC tablet Take 1 tablet (20 mg) by mouth daily before breakfast. Do not crush, chew, or split. Active prochlorperazin e (Compazine) 5 MG tablet Take 1 tablet (5 mg) by mouth 2 (two) times a day. Active valsartan (Diovan) 80 MG tablet Take 1 tablet (80 mg) by mouth daily. Active multivitamin (Theragran-M) tablet Take 1 tablet by mouth daily. OTC Active aspirin 81 MG chewable tablet Chew 1 tablet (81 mg) daily. 360 tablet 5 06/04/19 Active atorvastatin (Lipitor) 80 MG tablet Take 1 tablet (80 mg) by mouth nightly. 360 tablet 5 06/03/19 Active Accu-Chek Khadijah Plus test strip 1 STRIP DAILY TO CHECK BLOOD GLUCOSE Active phenytoin ER (Dilantin) 100 MG capsule Take 2 capsules (200 mg) by mouth in the morning and 2 capsules (200 mg) before bedtime. 120 capsule 6 Active levETIRAcetam (Keppra) 1000 MG tablet Take 1 tablet (1,000 mg) by mouth in the morning and 1 tablet (1,000 mg) before bedtime. 60 tablet 6 Active nystatin (Mycostatin) 437743 UNIT/GM powder APPLY POWDER TOPICALLY TO AFFECTED AREA TWICE DAILY Active Active Problems Problem Noted Date Diagnosed Date Stroke-like symptoms 07/28/2024 Asymptomatic stenosis of intracranial artery Seizure 06/01/2024 Encounters Date Type Department Care Team Description 07/28/2024 11:20 AM EDT Office Visit [facility] [address] [place] [address] Charlotte Hay MD Asymptomatic stenosis of intracranial artery (Primary Dx); Stroke-like symptoms 07/28/2024 9:06 AM EDT - 07/28/2024 11:59 PM EDT Hospital Encounter [facility] [address] [place] [address] Intracranial vascular stenosis Discharge Disposition: Home or Self Care 07/28/2024 Travel 06/15/2024 1:00 PM EDT Office Visit [facility] [address] [place] [address] Jermaine Maki MD History of seizure; Seizure (CMS/HCC) 06/15/2024 Travel from Last 3 Months Social History Tobacco Use Types Packs/Day Years Used Date Smoking Tobacco: Former Cigarettes Q uit: 1989 Smokeless Tobacco: Never Tobacco Cessation:Counseling Given: Not Answered Alcohol Use Standard Drinks/Week Comments Never 0 [...] answer 06/01/2024 How often do you attend chur or latter day services? Patient unable to answer 06/01/2024 Do you belong to any clubs o r organizations such as holiness groups, unions, fraternal or athletic groups, or [...] one occasion? Patient unable to answer 06/01/2024 [facility] Questionnaire Answer [...] were you homeless or living in a [place] (including now)? 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 on file Cage Overall score Not [...] on file Sexual Orientation Not on file Last Filed Vital Signs Vital Sign Reading Time Taken Comments Blood Pressure 142/80 07/28/2024 10:36 AM EDT Pulse 75 07/28/2024 10:36 AM EDT Temperature 36.8 C (98.3 F) 06/02/2024 3:16 PM EST Respiratory Rate 19 06/02/2024 3:00 PM EST Oxygen Saturation 95% 07/28/2024 10:36 AM EDT Inhaled Oxygen Concentration - - Weight 70.9 kg (156 lb 4.9 oz) 07/28/2024 10:36 AM EDT Height 149.9 cm (4' 11 ) 07/28/2024 10:36 AM EDT Body Mass Index 31.57 07/28/2024 10:36 AM EDT Plan of Treatment Health Maintenance Due Date Last Done Comments [facility]-Bone Density Scan 1950 [facility]-Depression Screening 1950 [facility]-Medicare Annual Wellness (AWV) 1950 [facility]-Infant/Child/Adol SDOH Screenings 1950 Diabetes: Dental Exam 11/28/1961 [facility]-DTaP,Tdap,and Td Vaccines (1 - Tdap) 11/28/1970 [facility]-Pneumococcal Vaccine: 50+ Years (1 of 2 - PCV) 11/28/1970 CT Colonography 11/28/1996 Colonoscopy 11/28/1996 FIT-DNA 11/28/1996 FIT 11/28/1996 FOBT 11/28/1996 Sigmoidoscopy 11/28/1996 [facility]-Colorectal Cancer Screening 11/28/1996 [facility]-Breast Cancer Screening 11/28/2001 [facility]-Zoster Vaccines (1 of 2) 11/28/2001 MYG-XSVOL-19 Vaccine ( season) 2024 01/29/2024, 01/22/2023, 01/05/2022, Additional history exists [facility]-Diabetes: Hemoglobin A1C 2024 06/01/2024 [facility]- SDOH Screenings 12/02/2024 [facility]-Adult SDOH Screenings 12/02/2024 06/01/2024 [facility]-RSV Vaccine: 60+ Years or Completed 03/06/2023 [facility]-Influenza Vaccine Completed 01/27/2024 , 01/22/2023, 01/05/2022 [facility]-Hepatitis C Screening Completed 06/01/2024 [facility]-Obesity Intervention Completed 025, 06/15/2024, 05/31/2024 HPV Vaccines Aged Out No longer eligi ble based on patient's age to complete this topic [facility]-HIB Vaccines Aged Out No longer e ligible based on patient's age to complete this topic [facility]-Hepatitis A Vaccines Aged Out No longer eligible based on patient's age to complete this topic [facility]-IPV Vaccines Aged Out No longer e ligible based on patient's age to complete this topic UKY-Rotavirus Vaccines Aged Out No lo nger eligible based on patient's age to complete this topic Procedures Procedure Name Priority Date/Time Associated Diagnosis Comments CT ANGIO NECK Routine 07/28/2024 9:47 AM EDT Intracranial vascular stenosis CT ANGIO HEAD Routine 07/28/2024 9:47 AM EDT Intracranial vascular stenosis HEPATITIS C ANTIBODY - ED W/REFLEX TO HCV QUANT PCR STAT 06/01/2024 12:51 AM EST HEMOGLOBIN A1C Add-On 06/01/2024 12:51 AM EST from Last 3 Months or Most Recently Relevant to Health Maintenance Results * CT Angio Neck (07/28/2024 9:47 [...] error, please notify the sender immediately at [phone] and permanently delete the original report and destroy any copies or printouts. Narrative 07/28/2024 4:26 PM EDT [facility] - Phone Outpatient NAME: Elizabeth Pozo DATE OF EXAM: 07/28/2024 Patient No: [id number] Physician: Satnam^Charlotte^Erum Norberto Date of : 1950 Past Medical/Surgical History (entered by technologist): Symptoms/Reason For Exam (entered by technologist): intracranial stenosis Tech Notes (entered by technologist): 80 mL Intravenous iohexol (OMNIPaque) 350 MG/ML injection 100 mL Dx: Intracranial vascular stenosis Hospital f/u for left MCA and left [employer] stenosis after ER transfer from [facility] as a stroke transfer. Originally presented with [...] Pozo DATE OF EXAM: 07/28/2024 Patient No: [id number] Physician: Satnam^Charlotte^Erum Thornton Date of : 1950 Past Medical/Surgical History (entered by technologist): Symptoms/Reason For Exam (entered by technologist): intracranialstenosis Tech Notes (entered by technologist): 80 mL Intravenous iohexol(OMNIPaque) 350 MG/ML injection 100 mL Dx: Intracranial vascular stenosis Hospital f/u for left MCA and left [employer] [facility]. Originally presented with [...] in error, pleasenotify the sender immediately at [phone] and permanently delete theoriginal report and destroy any copies or printouts. us Charlotte Hay MD IM CT PROCEDURES Final Resul t * CT Angio Head (07/28/2024 9:47 AM EDT) Anatomical Region Laterality Modality [place] [facility] [employer] [facility] Tomogr aphy Impressions 07/28/2024 [...] error, please notify the sender immediately at [phone] and permanently delete the original report and destroy any copies or printouts. Narrative 07/28/2024 4:26 PM EDT [facility] - Phone Outpatient NAME: Elizabeth Pozo DATE OF EXAM: 07/28/2024 Patient No: [id number] Physician: Satnam^Charlotte^Erum Thornton Date of : 1950 Past Medical/Surgical History (entered by technologist): Symptoms/Reason For Exam (entered by technologist): intracranial stenosis Tech Notes (entered by technologist): 80 mL Intravenous iohexol (OMNIPaque) 350 MG/ML injection 100 mL Dx: Intracranial vascular stenosis Hospital f/u for left MCA and left [employer]ACE[employer] MA[employer]ER stenosis after ER transfer from [facility] as a stroke transfer. Originally presented with [...] spaces are otherwise grossly normal. Procedure Note Gerrad Schuster MD - 07/28/2024 [facility] - Phone Outpatient NAME: Elizabeth Pozo DATE OF EXAM: 07/28/2024 Patient No: [id number] Physician: Satnam^Charlotte^Erum Thornton Date of : 1950 Past Medical/Surgical History (entered by technologist): Symptoms/Reason For Exam (entered by technologist): intracranialstenosis Tech Notes (entered by technologist): 80 mL Intravenous iohexol(OMNIPaque) 350 MG/ML injection 100 mL Dx: Intracranial vascular stenosis Hospital f/u for left MCA and left [employer] MA[employer]ER [facility]. Originally presented with [...] in error, pleasenotify the sender immediately at [phone] and permanently delete theoriginal report and destroy any copies or printouts. Charlotte Hay MD IMG CT PROCEDURES Final Resul t * Hepatitis C Antibody - ED (06/01/2024 12:51 AM EST) Hepatitis C Antibody Negative Negative 06/01/2024 1:59 AM EST [facility] Blood Venous blood specimen / Unknown Venipuncture / Unknown 06/01/2024 12:51 AM EST 06/01/2024 1:18 AM EST Lux Olmstead MD LAB BLOOD ORDERABLES Final Re sult [facility] [address] [place] [address] * (ABNORMAL) Hemoglobin A1c (06/01/2024 12:51 AM EST) Hemoglobin A1c 6.2(H) <5.7 % 06/01/2024 4:30 AM EST [facility] Blood Venous blood specimen / Unknown Venipuncture / Unknown 06/01/2024 12:51 AM EST 06/01/2024 12:58 AM EST Narrative [facility] - 06/01/2024 4:30 AM EST HA1C Interpretive Data: Diagnosis of Diabetes: Diabetic > or = 6.5% Pre-diabetic 5.7 to 6.4% Non-diabetic < or = 5.6% Glycemic Targets for Type I and Type II Diabetics: Non- Adults <7.0% Adults <6.0% Children and Adolescents <7.5% Source: [place] [employer]. Standards of medical care in diabetes,2017. Diabetes Care.2017:40 (suppl 1):S1-S135. HbA1c assay performed by an ion-exchange chromatography method that is certified traceable to the DCCT. 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
--- OUTSIDE RECORDS SUMMARY | 2024-09-14 19:38 | XMS_ITS | Data Portability ---
Author Organization 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 She has had a poor appetite for the past 2-3 months and has had a 30 lb unintentional weight loss. [email or web address] Not available 05/06/2024 13:57:28 Plan of Treatment Reminders Order Date Submit Date Provider Last Modified By Organization Details Last Modified Time Details Appointments None recorded. Lab CMP, serum or plasma 2023 024 [facility] (Registration ), [address] [place], [address], 4 17:00:52 phenytoin, free + total, serum 2023 024 [facility] (Registration ), [address] [place], [address], 4 13:35:57 phenobarbit al, total, serum 2023 024 [email or web address] [facility] (Registration ), [address] [place], [address], 4 13:36:42 Referral None recorded. Procedures None recorded. Surgeries None recorded. Imaging None recorded. Medication Orders levetiracet am 500 mg tablet 2023 024 [email or web address] [id number], [address] [facility], [place], [place], [id number], 14:40:01 Patient TargetsNo targets recorded. Patient Instructions Encounter Date Encounter Id Patient Instructions Last Modified By Organization Details Last Modified Time 05/06/2024 [id number] Name: ИВАН POZO LMA Exam Date: 03/26/2024 : 1950 Age 73 years Physician: MOLLY WU Facility: [facility] Facility HSV: Outpatient Exam: CT ABD PEL W/O EXAM DESCRIPTION: CT ABD PEL W/O CLINICAL HISTORY: 73 years Female, LLQ pain COMPARISON: 11/03/2018 TECHNIQUE: CT of the abdomen and pelvis performed without IV contrast but after oral administration of contrast. Low-dose CT techniques implemented such as iterative reconstructions and dose modulation. FINDINGS: Lung bases are clear. The gallbladder has been removed. The liver is enlarged at 19.9 cm. 2 mm calculus mid right kidney. No evidence of hydronephrosis. The solid organs are otherwise unremarkable. The bowel is unremarkable. There is dense material and anteriorly and inferiorly and also in the region of the posterior cul-de-sac surface of uterus which is new from previous exam. IMPRESSION: Dense material versus calcifications pericardium anteriorly inferiorly in the posterior cul de-sac this may represent prior extravasation of oral contrast or other administration of peritoneal contrast versus calcifications. Active extravasation of contrast is not identified at this time. Hepatomegaly. Nonobstructive right nephrolithiasis. [email or web address] Not available 05/06/2024 14:03:07 Reason for Referral None Reported. Results Created Date Observation Date Name Description Value Unit Range Abnormal Flag Note LastModifiedBy Organization Detail LastModifiedTime 04/29/1904/29/2023 COMP METAB OLIC PANEL sodium 138 mmol/ L 136-14 5 Not Available [facility] ([facility]) [address] [facility], [place], [address], 04/29/2023 17:00:52 04/29/19 24 04/29/2023 COMP METAB OLIC PANEL potassium 4.4 mmol/ L 3.6-5. 0 Not Available [facility] ([facility]) [address], [place], [address], 04/29/2023 17:00:52 04/29/19 24 04/29/2023 COMP METAB OLIC PANEL chloride 100 mmol/ L 98-107 Not Available [facility] ([facility]) [address], [place], [address], 04/29/2023 17:00:52 04/29/19 24 04/29/2023 COMP METAB OLIC PANEL carbon dioxide 24.1 mmol/ L 21.0-3 2.0 Not Available [facility] ([facility]) [address] , [place], [address], 04/29/2023 17:00:52 04/29/19 24 04/29/2023 COMP METAB OLIC PANEL anion gap 18.3 Not Available [facility] ([facility]) [address] , [place], [address], 04/29/2023 17:00:52 04/29/19 24 04/29/2023 COMP METAB OLIC PANEL glucose 212 mg/dL 70-120 high Not Available [facility] ([facility]) [address] , [place], [address], 04/29/2023 17:00:52 04/29/19 24 04/29/2023 COMP METAB OLIC PANEL BUN 7 mg/dL 7-18 Not Available [facility] ([facility]) [address] , [place], [address], 04/29/2023 17:00:52 04/29/19 24 04/29/2023 COMP METAB OLIC PANEL creatinine 0.8 mg/dL 0.6-1. 3 Not Available [facility] ([facility]) [address] , [place], [address], 04/29/2023 17:00:52 04/29/19 24 04/29/2023 COMP METAB OLIC PANEL glomerular filtration rate TNP mlper min 60- TEST NOT PERFO RMED GFR has only been valid ated from 18 to 70 years of age. Not Available [facility] ([facility]) [address] , [place], [address], 04/29/2023 17:00:52 04/29/19 24 04/29/2023 COMP METAB OLIC PANEL total protein 7.5 g/dL 6.4-8. 2 Not Available [facility] ([facility]) [address] , [place], [address], 04/29/2023 17:00:52 04/29/19 24 04/29/2023 COMP METAB OLIC PANEL albumin 3.9 g/dL 3.4-5. 0 Not Available [facility] ([facility]) [address], [place], [address], 04/29/2023 17:00:52 04/29/19 24 04/29/2023 COMP METAB OLIC PANEL globulin 3.6 Not Available [facility] ([facility]) [address], [place], [address], 04/29/2023 17:00:52 04/29/19 24 04/29/2023 COMP METAB OLIC PANEL alb/glob ratio 1.1 0.7-2 Not Available [facility] ([facility]) [address], [place], [address], 04/29/2023 17:00:52 04/29/19 24 04/29/2023 COMP METAB OLIC PANEL calcium 8.9 mg/dL 8.5-10 .5 Not Available [facility] ([facility]) [address], [place], [address], 04/29/2023 17:00:52 04/29/19 24 04/29/2023 COMP METAB OLIC PANEL bilirubin total 0.30 mg/dL 0.10-1 .00 Not Available [facility] ([facility]) [address] , [place], [address], 04/29/2023 17:00:52 04/29/19 24 04/29/2023 COMP METAB OLIC PANEL AST (SGOT) 36 U/L 0-37 Not Available [facility] ([facility]) [address], [place], [address], 04/29/2023 17:00:52 04/29/19 24 04/29/2023 COMP METAB OLIC PANEL ALT (SGPT) 53 U/L 0-65 Not Available [facility] ([facility]) [address], [place], [address], 04/29/2023 17:00:52 04/29/19 24 04/29/2023 COMP METAB OLIC PANEL alk phosphatase 135 U/L 46-116 high Not Available [facility] ([facility]) [address], [place], [address], 04/29/2023 17:00:52 04/29/19 24 04/29/2023 PHENY TOIN (DILA NTIN) TOTAL phenytoin (dilantin) 10.2 ug/mL 10-20 Not Available [facility] ([facility]) [address], [place], [address], 04/29/2023 17:00:54 04/29/19 24 05/02/2023 PHENO ISAIAS GURWINDER phenobarbita l 11 ug/mL 15-40 low Detec tion Limit = 3 Perfo rmed at: [facility] [address], [place] [address] Lab Direc tor: Moises barnes PhD, Phone : [phone] Not Available [facility] ([facility]) [address], [place], [address], 05/02/2023 08:22:17 04/29/19 24 05/20/2023 PHENY TOIN ANGELA TIN FREE phenytfr 0.5 [facility] rp Alexandra enriquez Dir: AILIN GLASS MD [address] ,[place] [address] by: [phone] Refer ence Inter jacqueline 1.0-2 .0 Not Available [facility] (Registration ) [address] [facility], [place], [address], 05/20/2023 13:34:54 04/25/19 24 01/11/2014 elect roenc ephal ogram No observ ation record ed. BARCODE Not Available 2023 13:24:39 04/25/19 24 12/15/2013 CT, brain , w/o contr ast No observ ation record ed. BARCODE Not Available 2023 13:24:39 Result Notes None recorded. Problems Name Problem SNOMED Code Status Onset Date Resolution Date Notes Provider Name and Address Organization Details Recorded Time Chronic diarrhea 761951478 Active 2024 Lc Garzon PA-C [address], [place], [address] , [place] - [facility] - [place] & [place] 13:56:22 Unintentional weight loss 960701228 Active 2024 Lc Garzon PA-C [address] [facility], [place], [address] , [place] [facility] [place] 13:56:28 Nausea and vomiting 00459973 Active 2024 Lc Garzon PA-C [address], [place], [address] , [place] [facility] [place] 13:56:37 Abdominal pain 66144115 Active 2024 Lc Garzon PA-C [address] , [place], [address] , [place] [facility] [place] 13:56:42 Seizure 31293009 Active 2023 Gladys dean, [place] - [facility] - [place] & [place] 4 12:33:18 Generalized epilepsy 31500283 Active 2023 Pallavi Dugan, DO [address] [facility], [place], [address] , [place] [facility] [place] 4 14:02:40 Problem Notes None recorded. Procedures Surgical History Date Name Laterality Status Provider Name and Address Organization Details Recorded Time delivery completed Gladys Lolitaa [place] - [facility] [place] 04/23/2023 13:27:29 Cholecystectomy completed Gladys Dalla [place] - [facility] - [place] 04/23/2023 13:27:42 cataract surgery completed Gladys Dalla [place] - [facility] [place] 04/23/2023 13:39:43 Imaging Results None recorded. Procedure Notes None recorded. Medical Equipment None Reported. Allergies Allergen ID Allergen Name Allergen Category Reaction Reaction Severity Criticality Documentation Date Start Date Code Code System Note Provider Name and Address Organization Details Recorded Time 569633 aspirin medicatio n Not available Not available Not available 04/23/2023 1191 RxNorm Gladys Lolitaa null, [place] [facility] [place] 4 12:28:54 640126 codeine medicatio n Not available Not available Not available 04/23/2023 2670 RxNorm Gladys Dalla [place], [place] [facility] [place] 4 12:29:03 663012 Flagyl medicatio n Not available Not available Not available 04/23/2023 39737 6 RxNorm Gladys D[place], [place] [facility] [place] 4 12:29:11 579639 pertussis vaccine medicatio n Not available Not available Not available 04/23/2023 8080 RxNorm Gladys [place], [place] [facility] [place] 4 12:29:18 946786 Substance with sulfonami de structure and antibacte rial mechanism of action (substanc e) medicatio n Not available Not available Not available 04/23/2023 90723 8003 SNOMED Gladys Dalla null, [place] - [facility] [place] 4 12:29:29 528994 Tequin medicatio n Not available Not available Not available 04/23/2023 90327 4 RxNorm [facility] & [place] 4 12:29:36 834695 Medicinal product containin g tetracycl ine structure and acting as antibacte rial agent (product) medicatio n Not available Not available Not available 04/23/2023 81240 1004 SNOMED [facility] & [place] 4 12:29:46 554725 cyclobenz aprine medicatio n Not available Not available Not available 04/23/2023 39381 RxNorm [facility] & [place] 4 13:22:04 Medications Name Sig Start Date Stop Date Status Note LastModified by Organization Details LastModified Time atorvastati n 80 mg tablet active Not Available Not Available Not Available levetiracet am 500 mg tablet take 1 tablet twice a day for 90 days active Not Available Not Available No t Available prochlorper azine maleate 5 mg tablet TAKE 1 TABLET BY MOUTH TWICE DAILY active Not Available Not Available No t Available simvastatin 10 mg tablet TAKE 1 TABLET BY MOUTH EVERY DAY active Not Available Not Available No t Available valsartan 80 mg tablet TAKE 1 TABLET BY MOUTH EVERY DAY active Not Available Not Available No t Available phenytoin sodium extended 100 mg capsule TAKE 1 CAPSULE BY MOUTH FOUR TIMES DAILY active Not Available Not Available No t Available pantoprazol e 20 mg tablet,robyn yed release active Not Available Not Available Not Available ketorolac 0.5 % eye drops as directed 04/23 completed Not Available Not Available Not Available prednisolon e acetate 1 % eye drops,suspe nsion 04/23 completed Not Available Not Available Not Available pantoprazol e 40 mg tablet,robyn yed release Take 1 tablet every day by oral route. active Not Available Not Available No t Available tobramycin 0.3 % eye drops 04/23 completed Not Available Not Available Not Available phenobarbit al 64.8 mg tablet TAKE 1 TABLET BY MOUTH EVERY DAY 07/23 completed Not Available Not Available Not Available Vitamin B6 50 mg tablet Take 1 tablet every day by oral route. active Not Available Not Available No t Available valsartan 40 mg tablet TAKE 1 TABLET BY MOUTH DAILY 04/23 completed Not Available Not Available Not Available cyclosporin e 0.05 % eye drops in a dropperette active Not Available Not Available Not Available cranberry 450 mg tablet Take 1 tablet every day by oral route. active Not Available Not Available No t Available biotin 5000mcg daily active Not Available Not Available No t Available Co Q 10 200 qd active Not Available Not Avail able Not Available levetiracet am 1,000 mg tablet active Not Available Not Available Not Available Januvia 100 mg tablet Take 1 tablet every day by oral route for 90 days. active Not Available Not Available No t Available Citracal + D Maximum 1 qd active Not Available Not Available No t Available sodium,pota ssium,mag sulfates 17.5 gram-3.13 gram-1.6 gram oral soln TAKE 6 OUNCES TWO TIMES A DAY BY MOUTH FOR ONE DAY FOR COLONOSCO PY PREP active Not Available Not Available No t Available Accu-Chek Khadijah Plus test strips 1 STRIP DAILY TO CHECK BLOOD GLUCOSE active Not Available Not Available No t Available PreviDent 5000 Booster Plus 1.1 % dental paste Take by dental route. active Not Available Not Available No t Available Flonase Allergy Relief 50 mcg/actuati on nasal spray,suspe nsion [place] 1 spray every day by intranasa l route. 07/23 completed Not Available Not Available Not Available Fish Oil 1,000 mg (120 mg-180 mg) capsule Take 1 capsule every day by oral route. active Not Available Not Available No t Available Tyrvaya 0.03 mg/spray nasal spray INSTILL 1 SPRAY IN EACH NOSTRIL TWICE DAILY active Not Available Not Available No t Available Astepro Allergy 205.5 mcg (0.15 %) nasal spray [place] 1 spray twice a day by intranasa l route. active Not Available Not Available No t Available Centrum Minis Women 50 Plus 1 qd active Not Available Not Available Not Available Vitals Date Recorded Body weight Body mass index (BMI) Body height Oxygen saturation Oxygen saturation in Arterial blood by Pulse oximetry Heart rate Systolic blood pressure Diastolic blood pressure Provider Name and Address Organization Details Last Updated DateTime 4 25485 g 36.2 kg/m2 151.77 cm 97 % 97 % 82 /min 158 mm[Hg] 70 mm[Hg] Gladys MCNAMARA - [facility] - [place] & [place] 4 13:34:47 Date Recorded Body height Body mass index (BMI) Body weight Body temperature Oxygen saturation Oxygen saturation in Arterial blood by Pulse oximetry Heart rate Systolic blood pressure Diastolic blood pressure Provider Name and Address Organization Details Last Updated DateTime 5 151.77 cm 32.2 kg/m2 18989.9 9 g 98.1 [degF] 98 % 98 % 95 /min 187 mm[Hg] 80 mm[Hg] Adan gaona [place] - [facility] - [place] & [place] 5 13:03:36 Date Recorded Heart rate Provider Name an d Address Organization Details Last Updated DateTime 05/22/2023 57 /min Amaya Garcia O [address] [facility], [place], [address], [facility] - [facility] & [place] 05/22/2023 14:37:42 Date Recorded Body height Body mass index (BMI) Body weight Oxygen saturation Oxygen saturation in Arterial blood by Pulse oximetry Systolic blood pressure Diastolic blood pressure Provider Name and Address Organization Details Last Updated DateTime 4 151.77 cm 36 kg/m2 39690.6 9 g 99 % 99 % 168 mm[Hg] 70 mm[Hg] Gladys MCNAMARA - [facility] & [place] 4 14:22:15 Date Recorded Body height Body mass index (BMI) Body weight Heart rate Oxygen saturation Oxygen saturation in Arterial blood by Pulse oximetry Systolic blood pressure Diastolic blood pressure Provider Name and Address Organization Details Last Updated DateTime 4 151.77 cm 36.2 kg/m2 07248.2 8 g 82 /min 97 % 97 % 138 mm[Hg] 62 mm[Hg] Gladys Mchughblair [facility] - [facility] - [place] & [place] 4 14:50:26 Social History Question Answer Notes LastModified by Organizat ion Details LastModified Time Tobacco Smoking Status Former Smoker rare-years ago Gladys dean [place] - [facility] & [place] 04/23/2023 13:26:35 What Is Your Level Of Caffeine Consumption? Moderate Tea Information not available 04/23/2023 What Is Your Relationship Status? Lives With In A House Information not available 04/23/2023 Are You Currently In School? No Diploma Information not available 04/23/2023 Sex: Unknown Functional Status Question Answer Note LastModified by Organizat ion Details LastModified Time Do you use any illicit or recreational drugs? No Information not available 04/23/2023 What is your level of alcohol consumption? None Information not available 04/23/2023 Are you currently employed? No retired Information not available 04/23/2023 Mental Status None recorded. Family History Relationship Description Onset Age of this Age Resolved Age Notes LastModified by Organization Details LastModified Time Father Alzheimer's disease [email or web address] Not available 2024 12:43:57 Father Dementia 83 [email or web address] Not availabl e 05/06/2024 12:43:57 Mother Cerebrovascu lar accident 91 [email or web address] Not available 13:38:31 Medical History Condition Response Vision or Eye Problems Y Arthritis Y Hospitalizations Y Diabetes Y Seizures/Epilepsy Y Hyperlipidemia Y Reflux/GERD Y Hypertension Y Gynecological HistoryNo gynecological history recorded. Obstetrics History GPAL:G 0 P 0 0 0 0 Past Encounters Encounter ID Performer Location Encounter Start Date Encounter Closed Date Diagnosis/Indication Diagnosis SNOMED-CT Code Diagnosis ICD10 Code Diagnosis Note [id number] DO ODALYS Garcia [facility] [address] [facility],[address] [place] [address] 04/23/2023 13:08:02 04/23/2023 14:20:29 Generalized epilepsy 66240031 G40.309 Chronic condition that has been relatively stable on her medication s but now with some concerns about the access to her phenobarbi gurwinder.I would recommend trying to transition her from PB to levetirace villalta. She could continue the dilantin. Before making any medication changes I will check labs and have her come back for a short term follow up.She does not need refills on her prescripti ons today.She should have DEXA scan for osteoporos is related to detention dilantin use.Seizur e precaution s reviewed.N o indication to repeat an EEG at this time. [id number] DO Leyla [facility] [address] [facility],[address] [place] [address] 05/22/2023 14:12:46 05/22/2023 14:42:10 Generalized epilepsy 87492983 G40.309 Chronic condition that has been relatively stable on her medication s but now with some concerns about the access to her phenobarbi gurwinder.I would recommend trying to transition her from PB to levetirace villalta. She could continue the dilantin. Will initiate levetirace villalta at 500mg bid. She will call with an update in 10 days, if tolerating then will start weaning the PB.She does not need refills on her prescripti ons today.Seiz [place] s reviewed.N o indication to repeat an EEG at this time. She did have a low pulse today but was asymptomat ic. She was instructed to monitor this from home over the next few days and if it remains low to make her PCP aware. [id number] Pallavi Dugan DO [facility] [address],[address] [place] [address] 07/24/2023 14:40:20 07/24/2023 15:16:10 Generalized epilepsy 82022409 G40.309 Chronic condition that is stable. She has tolerated weaning off the phenobarbi gurwinder. She is doing well with the phenytoin and levetirace villalta. She needs to continue these medication s at the current dosages. She does not need refills today.Will need annual labs to monitor phenytoin but not due for that today.Seiz [place] precaution s reviewed.N o indication to repeat an EEG at this time. [id number] Lc Garzon PA-C [facility] [address] [facility] [address] [place] [address] 05/06/2024 12:41:45 05/06/2024 13:51:30 Chronic diarrhea 136679636 K52.9 Symptoms are worse with stress. May favor functional diarrhea. Will await endoscopic findings. Unintentio nal weight loss 099269740 R63.4 -Schedule EGD and colonoscop y for further evaluation . Nausea and vomiting 1691999 R11.2 Abdominal pain 24999660 R10.9 Health Concerns Section Related Observation LastModified by Organization Detai ls LastModified Time None Recorded Concern Status LastModified by Organization Details LastModified Time None Recorded Advance Directives Directive None Recorded Payers Insurance Date Sequence Insurance Name Policy Number Policy Ibrahim Covered Member ID Ibrahim Member ID Guarantor Name 06/04/2024 1 [place]ICARE[place]ICARE[place] Elizabeth Pozo [id number] Elizabeth Pozo 06/04/2024 2 [employer] (MEDICARE SUPPLEMENT) Elizabeth Pozo [id number] Elizabeth Pozo 06/04/2024 2 [employer] Elizabeth Pozo [id number] Elizabeth Pozo Notes Date Note Type Note Provider Name and Address Organization Details Recorded Time 04/23/2023 text/html 72 y/o right johnson ded female here for neurologic consultation requested by Dr Spivey regarding epilepsy. Elizabeth is accompanied by her who helps supplement the history for today's visit. Elizabeth was seen in this office in 2013 for her epilepsy. She has some febrile seizures in infancy but was not treated for epilepsy until she was 15 years old. At that time she had her first ever grand mal seizure. As far as she knows there was no known cause for her epilepsy. She was placed on phenobarbital and phenytoin in her teenage years and been on this ever since. She was at one timed tried on carbamazepine but did not tolerate this medication.When she was seen in 2013 she had suffered a breakthrough seizure in her sleep which was the first seizure in 20 years. She had been taken to the ER when this occurred. Her PB and phenytoin levels were both low despite no missed dosages. She reported her PB dose to be 64.8mg daily and phenytoin 300mg daily.CT head in 2014 was normal. EEG in 2014 was normal.I did try to increase her maintenance dose of phenytoin in 2013 but she did not tolerate the higher dosing so it was reduced back to 300mg daily.She was lost to follow up after 2016 but tells me her PCP continued to manage her refills. At some point she began taking 400mg of phenytoin daily but it is somewhat unclear when or how that came about. Her tells me that her rx says three pills but she had just been taking four and somehow had a stockpile to manage to do this. Recently her stockpile had run out and when she tired to go to three pills daily she really began to feel funny. She thought she might be having some staring type seizures. Her PCP did adjust her rx in January after she reported this and now she tells me she feels back to normal. Her has concerns that they are having more an more difficulty getting her PB prescription filled in a timely manner as he can only request her refills a couple days each month before she runs out. I did order DEXA scan in 2013 that was negative for osteoporosis. She is unsure if it has been rechecked since that time. She does believe her seizure drug levels were checked by her PCP recently but she is not aware of the results. Pallavi Ritchie, DO [address] [facility], [place], [place], [address], [facility] - [place] & [place] 04/25/2023 12:54:19 05/22/2023 text/html Elizabeth comes in [facility] for a follow up. She is accompanied by her who helps supplement the history.She had her seizure drug levels checked since the last visit. Her dilantin level was 10.2 and her PB level was 11. Her CMP was normal other than elevated glucose. She has not had any further seizures since she was last here. The funny feelings she was having a few months ago have seemed to resolve.She does express feeling tired. She tends to sleep a lot but it is not restful. INITIAL VISIT: (04/23/23)72 y/o right handed female here for neurologic consultation requested by Dr Spivey regarding epilepsy. Elizabeth is accompanied by her who helps supplement the history for today's visit. Elizabeth was seen in this office in 2013 for her epilepsy. She has some febrile seizures in infancy but was not treated for epilepsy until she was 15 years old. At that time she had her first ever grand mal seizure. As far as she knows there was no known cause for her epilepsy. She was placed on phenobarbital and phenytoin in her teenage years and been on this ever since. She was at one timed tried on carbamazepine but did not tolerate this medication.When she was seen in 2013 she had suffered a breakthrough seizure in her sleep which was the first seizure in 20 years. She had been taken to the ER when this occurred. Her PB and phenytoin levels were both low despite no missed dosages. She reported her PB dose to be 64.8mg daily and phenytoin 300mg daily.CT head in 2014 was normal. EEG in 2013 was normal.I did try to increase her maintenance dose of phenytoin in 2013 but she did not tolerate the higher dosing so it was reduced back to 300mg daily.She was lost to follow up after 2016 but tells me her PCP continued to manage her refills. At some point she began taking 400mg of phenytoin daily but it is somewhat unclear when or how that came about. Her tells me that her rx says three pills but she had just been taking four and somehow had a stockpile to manage to do this. Recently her stockpile had run out and when she tired to go to three pills daily she really began to feel funny. She thought she might be having some staring type seizures. Her PCP did adjust her rx in January after she reported this and now she tells me she feels back to normal. Her has concerns that they are having more an more difficulty getting her PB prescription filled in a timely manner as he can only request her refills a couple days each month before she runs out. I did order DEXA scan in 2013 that was negative for osteoporosis. She is unsure if it has been rechecked since that time. She does believe her seizure drug levels were checked by her PCP recently but she is not aware of the results. Pallavi Dugan, [address] [facility], [place], [address], [facility] - [facility] - [place] & [place] 05/22/2023 14:44:13 07/24/2023 text/html Elizabeth comes in [facility] for follow up. She is accompanied by her . She was started on levetiracetam the last visit as she had interest in trying to wean off PB. She began weaning the PB in early May. She has not had any seizures. she has tolerated the transition well. She has no new concerns today. PRIOR VISIT: (05/22/23)Elizabeth comes in today for a follow up. She is accompanied by her who helps supplement the history.She had her seizure drug levels checked since the last visit. Her dilantin level was 10.2 and her PB level was 11. Her CMP was normal other than elevated glucose. She has not had any further seizures since she was last here. The funny feelings she was having a few months ago have seemed to resolve.She does express feeling tired. She tends to sleep a lot but it is not restful. INITIAL VISIT: (04/23/23)72 y/o right handed female here for neurologic consultation requested by Dr Spivey regarding epilepsy. Elizabeth is accompanied by her who helps supplement the history for today's visit. Elizabeth was seen in this office in 2013 for her epilepsy. She has some febrile seizures in infancy but was not treated for epilepsy until she was 15 years old. At that time she had her first ever grand mal seizure. As far as she knows there was no known cause for her epilepsy. She was placed on phenobarbital and phenytoin in her teenage years and been on this ever since. She was at one timed tried on carbamazepine but did not tolerate this medication.When she was seen in 2013 she had suffered a breakthrough seizure in her sleep which was the first seizure in 20 years. She had been taken to the ER when this occurred. Her PB and phenytoin levels were both low despite no missed dosages. She reported her PB dose to be 64.8mg daily and phenytoin 300mg daily.CT head in 2013 was normal. EEG in 2013 was normal.I did try to increase her maintenance dose of phenytoin in 2013 but she did not tolerate the higher dosing so it was reduced back to 300mg daily.She was lost to follow up after 2016 but tells me her PCP continued to manage her refills. At some point she began taking 400mg of phenytoin daily but it is somewhat unclear when or how that came about. Her tells me that her rx says three pills but she had just been taking four and somehow had a stockpile to manage to do this. Recently her stockpile had run out and when she tired to go to three pills daily she really began to feel funny. She thought she might be having some staring type seizures. Her PCP did adjust her rx in January after she reported this and now she tells me she feels back to normal. Her has concerns that they are having more an more difficulty getting her PB prescription filled in a timely manner as he can only request her refills a couple days each month before she runs out. I did order DEXA scan in 2013 that was negative for osteoporosis. She is unsure if it has been rechecked since that time. She does believe her seizure drug levels were checked by her PCP recently but she is not aware of the results. Pallavi Dugan DO [address], [place], [address], [facility] & [place] 07/24/2023 15:19:17 05/06/2024 text/html Ms. Pozo is a pleasant 73-year-old female who was referred by Dr. Castillo for evaluation of chronic abdominal pain and stress induced diarrhea. Symptoms have been present intermittently for more than 10 years. She has had chronic nausea, vomiting, and lower abdominal pain for years. However, since March, her appetite has been very poor and she has had a near 30 lb unintentional weight loss. She notes that her GI symptoms are triggered by increased anxiety. She had a colonoscopy 4 years ago that was reported as normal. EGD at that time showed a distal esophageal stricture that was dilated. Currently, she denies dysphagia or heartburn. Lc Garzon PA-C [address], [place], [address], [facility] - [facility] & [place] 05/06/2024 14:38:16 OBGyn Episode No OBEpisode recorded.
--- OUTSIDE RECORDS SUMMARY | 2024-09-14 19:38 | XMS_ITS | Continuity of Care Document ---
Author Organization [facility], [facility] Address [address] [place] [address] Assessment Encounter Date Assessment Date Assessment LastModified by Organization Details LastModified Time 09/08/2024 09/08/2024 Patient presented to office today [...] Not available Not available Not available Lab None recor ded. Referral None recor ded. Procedures None recor ded. Surgeries None recor ded. Imaging None recor ded. Medication Orders Zolof t 25 mg table t 2024 025 Screen Scripts Home [facility], [address] [place] [address], [address], 09/08/2024 14:23:09 Patient TargetsNo targets recorded. Patient InstructionsNo instructions recorded. Reason for Referral None Reported. Problems Name Problem SNOMED Code Status Onset Date Resolution Date Notes Provider Name and Address Organization Details Recorded Time Type 2 diabetes mellitus without complicat ion 859882911 Active 2022 JI MOSQUERA LL, DO [address] [place] [address], [address] , [facility] 17:04:52 Essential hypertens ion 50601929 Active 2022 JI SANCHEZ, DO [address] [place], [address] , [facility] 3 17:04:53 Mixed hyperlipi demia 459933402 Active 2022 JI SANCHEZ, DO [address] [place], [address] , [facility] 3 17:04:54 Seizure disorder 453225703 Active 2022 JI SANCHEZ, DO [address] [place], [address] , [facility] 3 17:04:56 Obesity 544096021 Active Not Available [facility] 4 14:08:00 Morbid obesity 114203076 Active Not Available [facility] [employer] 5 14:16:35 Renal disorder due to type 2 diabetes mellitus 921156286 Active Not Available [facility] 5 14:16:57 Cerebrova scular disease 42638234 Active 2024 JI SANCHEZ, DO [address] [place], [address] , [facility] 5 14:17:48 Irritable bowel syndrome character ized by constipat ion 187276638 Active 2024 JI SANCHEZ, DO [address] [place], [address] , [facility] 5 14:17:51 Urinary tract infectiou s disease 28271251 Active 2015 From Automated Load;Provi paulina: Choi, Angel;St atus: Active Not Available [facility] 6 08:01:39 Problem Notes None recorded. Medical Equipment None Reported. Allergies Allergen ID Allergen Name Allergen Category Reaction Reaction Severity Criticality Documentation Date Start Date Code Code System Note Provider Name and Address Organization Details Recorded Time 20451202 Tequin medicatio n Not available Not available Not available 02/23/20162005 88359 4 RxNorm Comme nt: Creronaldo ed By: Saira morton Date: 01/15 8:27: 00 AM; Not Available [facility] 6 12:27:44 031600 Flagyl medicatio n Not available Not available Not available 02/23/2016201586 6 RxNorm Comme nt: Creat ed By: John meadows Date: 2015 12:26 :53 PM; Not Available [facility] 6 12:27:44 868063 aspirin medicatio n Not available Not available Not available 02/23/20162005 1191 RxNorm Comme nt: Creat ed By: Saira Isabel ;Minora selene Date: 01/15 8:27: 28 AM; Not Available [facility] 6 12:37:17 835633 Substance with sulfonami de structure and antibacte rial mechanism of action (substanc e) medicatio n Not available Not available Not available 02/24/20162005 12740 8003 SNOMED Comme nt: Creat ed By: Saira Isabel ;Crea selene Date: 01/15 8:24: 43 AM; Not Available [facility] 6 03:13:54 983175 pertussis vaccine medicatio n Not available Not available Not available 02/24/20162005 8080 RxNorm Comme nt: Creat ed By: Saira Isabel ;Minora selene Date: 01/15 8:27: 39 AM; Not Available [facility] 6 03:13:54 624609 codeine medicatio n Not available Not available Not available 02/24/20162015 2670 RxNorm Comme nt: Creat ed By: John meadows Date: 2015 12:27 :13 PM; Not Available [facility] 6 03:13:54 654713 tetracycl ine hydrochlo ride medicatio n Not available Not available Not available 02/24/20162005 60967 6 RxNorm Comme nt: Creat ed By: Saira morton Date: 01/15 8:26: 48 AM; Not Available [facility] 6 10:28:13 Medications Name Sig Start Date [...] Astepro 137 mcg (0.1 %) nasal spray [place] 2 sprays twice a day by intranas [...] 137 mcg-fluti casone 50 mcg/spray nasal spray [place] 1 spray twice a day by intranas [...] Organization Details Last Updated DateTime 149.86 cm 31.6 kg/m2 59196.5 1 g 71 /min 96 % 96 % 128 mm[Hg] 72 mm[Hg] Bambi Silva [facility] 13:56:03 Social History Question Answer Notes LastModified by Organizat ion Details LastModified Time Tobacco Smoking Status Never Smoker Snehal dean [facility] 02/13/2023 14:17:59 What Was The Date Of [...] high-dose, quadrivalent, PF 01/05/2022 completed Marian Guzman [facility] 03/26/2024 14:45:01 Influenza, high-dose, quadrivalent, PF 01/22/2023 completed Marian Guzman [facility] 03/26/2024 14:45:01 COVID-19, mRNA, LNP-S, PF, 30 mcg/0.3 mL dose 05/07/2020 completed Marian Guzman [facility] 03/26/2024 14:45:01 COVID-19, mRNA, LNP-S, PF, 30 mcg/0.3 mL dose 05/28/2020 completed Marian Guzman [facility] 03/26/2024 14:45:01 COVID-19, mRNA, LNP-S, PF, 30 mcg/0.3 mL dose 12/26/2020 completed Marian Guzman [facility] 03/26/2024 14:45:01 COVID-19, mRNA, LNP-S, PF, 30 mcg/0.3 mL dose, jacob-sucrose 08/18/2021 completed Marian Guzman [facility] 03/26/2024 14:45:01 COVID-19, mRNA, LNP-S, bivalent, PF, 30 mcg/0.3 mL dose 01/05/2022 completed Marian Guzman [facility] 03/26/2024 14:45:01 COVID-19, mRNA, LNP-S, PF, jacob-sucrose, 30 mcg/0.3 mL 01/22/2023 completed Marian Guzman [facility] 03/26/2024 14:45:01 RSV, bivalent, protein subunit RSVpreF, diluent reconstituted, 0.5 mL, PF 03/06/2023 completed Marian Guzman [facility] 03/26/2024 14:54:50 Influenza, high-dose, trivalent, PF 01/27/2024 completed Snehal Sawyer [facility] 01/27/2024 14:45:43 Past Encounters Encounter ID Performer Location Encounter Start Date Encounter Closed Date Diagnosis/Indication Diagnosis SNOMED-CT Code Diagnosis ICD10 Code Diagnosis Note [id number] JI MOSQUERA LL, DO [facility] [address] [place] [address] 09/08/2024 13:15:15 09/08/2024 14:26:01 Seizure disorder 359822488 G40.909 seeing neuro now.11/17-n eurologist referred her to recently left the practice, she is stable, evaluation was unrevealin g, we will simply continue her medication for now05/26 - stable06/23 - documented seizure- on meds- seeing neuro08/23- on phentoyn and keppra - seeing Meño in [facility]- did EEG. n [place] sleep test scheduled- then follow up-dont know results.- no more seizure no med changes Abnormal weight loss 267 393420 R63.4 08/23-charley rning, but felt to be multifacto rial, recent EGD was normal, recheck labs today09/23- up 2 lbs. stable Essential hypertension 53882853 I10 Medication decision made based on pt's allergies and co-morbid conditions including: HTN, T2DM08/23-v alsartan 80, might need to decrease blood pressure medicine as weight drops09/23- same. Hyperlipidemia 91861424 E78.5 On statin, tolerating wellGoal LDL less than 70, was 78 - LDL 10105/26-on statin tolerating well check lipids today08/23- recent escalation of high intensity statin. Seems to be tolerating okay doubt her GI effects are from that Gastroesop hageal reflux disease without esophagitis 061580592 K21.9 Symptoms reasonably well-contr olled on PPI, antinausea medication as needed05/26 - symptoms ok. 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 Renal diso rder due to type 2 diabetes mellitus 351592146 E11.21 on januvia., aic 6.9 02/21, LDL 788/19- surendra labs today . tolerates januva well.11/22- aic 7.05/26-ch mally routine labs, microalbum in, no complicati ons that we know of08/23- losing weight-rec heck A1c might be able to stop Januvia-ai c 6.3-09/23- DM with +microalbu min.- on melanie. statin.- Continue Januvia,, MELANIE inhibitor, statin Moderate m ajor depression 185168 F32.1 09/23-Patie nt has had depressive symptoms [...] Member ID Ibrahim Member ID Guarantor Name 09/08/2024 1 [place] ([place]IC[place] Elizabeth Pozo [id number] Elizabeth Pozo 09/08/2024 2 AARP (MEDICARE SUPPLEMENT) Elizabeth Pozo [id number] Elizabeth Sykes Sánchez Notes Date Note Type Note Provider Name and Address Organization Details Recorded Time 09/08/2024 text/html Patient is 73-year-old female here for follow-up visit, she has been doing okay this last month, she is following with neurologist in [facility], has had no further seizures, she has diabetes, hypertension and hyperlipidemia. No new acute complaints or concerns JI CORONA, DO [address] [place], [address], [facility] 09/08/2024 17:03:55 OBGyn Episode No OBEpisode recorded.
--- OUTSIDE RECORDS SUMMARY | 2024-09-14 19:38 | XMS_ITS | Encounter Summary ---
Author Organization [facility] Address [address] [place] [address] Care Team Providers Care Bus Company Manager Name Role Phone Prakash Castillo DO Primary Care Provider Jermaine Maki MD Unavailable [phone] Encounter Details Date Type Department Care Team (Latest Contact Info) Description 07/28/2024 Travel Social History Tobacco Use Types Packs/Day Years [...] 06/01/2024 How often do you attend chur ch or jainism services? Patient unable to answer 06/01/2024 Do you belong to any clubs o r organizations such as adventist groups, unions, fraternal or athletic groups, or [...] one occasion? Patient unable to answer 06/01/2024 [facility] - Occupational Stress Questionnaire Answer Date Recorded [...] any time in the past [address] [facility], were you homeless or living in a assisted (including now)? 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 Not on file Cage Overall score Not [...] on file documented as of this encounter Plan of Treatment Not on file documented as of this encounter Visit Diagnoses Not on filedocumented in this encounter Additional Health Concerns Assessment Noted Time A fall risk assessment has been complete d for the patient 07/28/2024 10:36 AM EDT A Body Mass Index follow-up plan has been documented for the patient 07/28/2024 2:58 PM EDT documented as of this encounter Care Teams Bus Company Manager Relationship Specialty Start Date End Date Prakash Castillo DO [address] [facility] [address] [place] [address] PCP - General 06/15/24 Jermaine Maki MD [address] [place] [address] Consulting Physician Neurology 06/15/24 documented as of this encounter
== END ==
LOC: SL 19:33
PROVIDERS: PCP Internal Medicine; Visit Provider Specialist
DX: G47.33 Obstructive sleep apnea (adult) (pediatric) (principal); E11.9 Type 2 diabetes mellitus without complications; G83.84 Todd's paralysis (postepileptic); G40.909 Epilepsy, unspecified, not intractable, without status epilepticus; G47.36 Sleep related hypoventilation in conditions classified elsewhere; Z68.31 Body mass index [BMI] 31.0-31.9, adult
CPT/HCPCS: 95810

== ENCOUNTER → 2024-11-25 06:39 | Outpatient (CLI) | payer MEDICARE, SELFPAY ==
--- OUTSIDE RECORDS SUMMARY | 2024-11-25 06:42 | XMS_ITS | Clinical Summary ---
Author Organization [facility] Address [address] [place] [address] Care Team Providers Care Automation/Controls Manager Name Role Phone MikalgeovannaLakisha bealew Matilde DO Primary Care Provider Jermaine Maki MD Unavailable [phone] Allergies Active Allergy Reactions Criticality Noted Date [...] by mouth nightly. 360 tablet 5 06/03/19 26 Active Accu-Chek Khadijah Plus test strip 1 STRIP DAILY TO CHECK BLOOD GLUCOSE Active phenytoin ER (Dilantin) 100 MG capsule Take 2 capsules (200 mg) by mouth in the morning and 2 capsules (200 mg) before bedtime. 120 capsule 6 5 Active levETIRAcetam (Keppra) 1000 MG tablet Take 1 tablet (1,000 mg) by mouth in the morning and 1 tablet (1,000 mg) before bedtime. 60 tablet 6 5 Active nystatin (Mycostatin) 748533 UNIT/GM powder APPLY POWDER TOPICALLY TO AFFECTED AREA TWICE DAILY Active Active Problems Problem Noted Date Diagnosed Date Stroke-like symptoms 07/28/2024 Asymptomatic stenosis of intracranial artery Seizure 06/01/2024 Social History Tobacco Use Types Packs/Day Years [...] answer 06/01/2024 How often do you attend [facility] or hoahaoism services? Patient unable to answer 06/01/2024 Do you belong to any clubs o r organizations such as adventism groups, unions, fraternal or athletic groups, or [...] one occasion? Patient unable to answer 06/01/2024 [facility] - [facility] Questionnaire Answer Date [...] any time in the past [address] [facility], were you homeless or living in a [facility] (including now)? 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 Not on file Cage Overall score Not on file 06/01/2024 Utilities Answer Date Recorded In the past 12 months has th e [employer], gas, oil, or water company threatened to [...] [facility]-Bone Density Scan 1950 [facility]-Depression Screening 1950 [facility]-Medicare Annual Wellness (AWV) 1950 [facility]-Infant/Child/Adol SDOH Screenings 1950 Diabetes: Dental Exam 11/28/1961 [facility]-DTaP,Tdap,and Td Vaccines (1 - Tdap) 11/28/1970 [facility]-Pneumococcal Vaccine: 50+ Years (1 of 2 - PCV) 11/28/1970 CT Colonography 11/28/1996 Colonoscopy 11/28/1996 FIT-DNA 11/28/1996 FIT 11/28/1996 FOBT 11/28/1996 Sigmoidoscopy 11/28/1996 [facility]-Colorectal Cancer Screening 11/28/1996 [facility]-Breast Cancer Screening 11/28/2001 [facility]-Zoster Vaccines (1 of 2) 11/28/2001 BCQ-SHYTO-15 Vaccine ( season) 2024 01/29/2024, 01/22/2023, 01/05/2022, Additional history exists [facility]-Diabetes: Hemoglobin A1C 2024 06/01/2024 [facility]-Influenza Vaccine (#1) 11/30/202401/26, 01/22/2023, 01/05/2022 [facility]- SDOH Screenings 12/02/2024 [facility]-Adult SDOH Screenings 12/02/2024 06/01/2024 [facility]-RSV Vaccine: 60+ Years or Completed 03/06/2023 [facility]-Hepatitis C Screening Completed 06/01/2024 [facility]-Obesity Intervention [...] Procedure Name Priority Date/Time Associated Diagnosis Comments HEPATITIS C ANTIBODY - ED W/REFLEX TO HCV QUANT PCR STAT 06/01/2024 12:51 AM EST HEMOGLOBIN A1C Add-On 06/01/2024 12:51 AM EST from Last 3 Months or Most Recently Relevant to Health Maintenance Results * Hepatitis C Antibody - ED (06/01/2024 12:51 AM EST) Hepatitis C Antibody Negative Negative 06/01/2024 1:59 AM EST [facility] Blood Venous blood specimen / Unknown Venipuncture / Unknown 06/01/2024 12:51 AM EST 06/01/2024 1:18 AM EST us Lux Olmstead MD LAB BLOOD ORDERABLES Final Re sult Performing Organization Address [facility] de Phone Number [facility] [address] [place] [address] * (ABNORMAL) Hemoglobin A1c (06/01/2024 12:51 AM EST) Hemoglobin A1c 6.2(H) <5.7 % 06/01/2024 4:30 AM EST [facility] Blood Venous blood specimen / Unknown Venipuncture / Unknown 06/01/2024 12:51 AM EST 06/01/2024 12:58 AM EST Narrative [facility] - 06/01/2024 4:30 AM EST HA1C Interpretive Data: Diagnosis of Diabetes: Diabetic > or = 6.5% Pre-diabetic 5.7 to 6.4% Non-diabetic < or = 5.6% Glycemic Targets for Type I and Type II Diabetics: Non- Adults <7.0% Adults <6.0% Children and Adolescents <7.5% Source: [place] [employer]. Standards of medical care in diabetes,2017. Diabetes Care.2017:40 (suppl 1):S1-S135. HbA1c assay performed by an ion-exchange chromatography method that is certified traceable to the DCCT. us Yvon Beasley MD LAB BLOOD ORDERABLES Final Resul t Performing Organization Address City/[facility]/ZIP Co de Phone Number [facility] [address] [place] [address] from Last 3 Months or Most Recently Relevant to Health Maintenance Insurance MEDICARE [facility] Care Teams Automation/Controls Manager Relationship Specialty Start Date End Date Prakash Castillo DO [address] [place] [address] PCP - General 06/15/24 Jermaine Maki MD [address] [facility] [address] [place] [address] Consulting Physician Neurology 06/15/24
== END ==
LOC: SL 06:40
PROVIDERS: PCP Specialist; Visit Provider Specialist
DX: G47.30 Sleep apnea, unspecified (principal); G40.909 Epilepsy, unspecified, not intractable, without status epilepticus
CPT/HCPCS: G0399

== ENCOUNTER 2025-01-21 07:38 | Outpatient (CLI) | payer MEDICARE, SELFPAY ==
--- OUTSIDE RECORDS SUMMARY | 2025-01-21 07:42 | XMS_ITS | Continuity of Care Document ---
Author Organization [place] - [facility] Address [address] [place] [address] Assessment Encounter Date Assessment Date Assessment LastModified by Organization Details LastModified Time 12/15/2024 12/15/2024 - 74 year old female with history of moderate major depression, irritable bowel syndrome, and seizure disorder presenting with gastrointestinal symptoms including cramping, nausea, and weight loss. - Anxiety contributing to gastrointestinal symptoms. - Reintroduction of previous medications is likely necessary for symptom management. - Persistent symptoms continue to impact weight and general well-being. Gastrointestinal Symptoms: - Restart Zofran, consider anxiety-related impacts, and manage ongoing symptoms with previous medication efficiency. carmen Not available 12/15/2024 17:03:36 Plan of Treatment Reminders Order Date Submit Date Provider Last Modified By Organization Details Last Modified Time Details Appointments RECHE CK 2024 02:00P M DR CORONA Not available Not available Not available Lab None recor ded. Referral None recor ded. Procedures None recor ded. Surgeries None recor ded. Imaging None recor ded. Medication Orders ondan setro n HCl 4 mg table t 2024 025 [facility], [address] [facility], [place], [address], 12/15/2024 14:49:04 Xanax 0.25 mg table t 2024 025 [id number], [address] [facility], [place], [place], [phone], 12/15/2024 14:53:55 panto prazo le 20 mg table t,kal ward relea se 2024 025 [facility], [address] [place] [address], [id number], 12/15/2024 14:49:11 Bysto lic 5 mg table t 2024 025 [facility], [address] [place] [address], [id number], 12/15/2024 14:49:04 valsa rtan 40 mg table t 2024 025 [facility], [address] [place] [address], [id number], 12/15/2024 14:49:04 Patient TargetsNo targets recorded. Patient Instructions Encounter Date Encounter Id Patient Instructions Last Modified By Organization Details Last Modified Time 12/15/2024 [id number] - Restart previous medications as discussed, including Zofran and Valsartan. - Take introduced Xanax once a day as needed for anxiety and cramping. - Use [facility] for medication refills. - Monitor symptoms and contact healthcare provider if there's no improvement or worsening. [email or web address] Not available 12/15/2024 14:54:30 Reason for Referral None Reported. Results Created Date Observation Date Name Description Value Unit Range Abnormal Flag Note LastModifiedBy Organization Detail LastModifiedTime 12/02/1912/01/2024 URINA LYSIS color Yellow normal Not Available [facility] [address] [place] [address], [phone], 12/01/2024 19:22:49 12/02/19 25 12/01/2024 URINA LYSIS appearance Clear normal Not Available [facility] [address] [place], [address], 12/01/2024 19:22:49 12/02/19 25 12/01/2024 URINA LYSIS glucose Normal mg/dL normal normal Not Available [facility] [address] [place] [address], [address], 12/01/2024 19:22:49 12/02/19 25 12/01/2024 URINA LYSIS bilirubin Negati ve mg/dL negati ve normal Not Available [facility] [address] [place] [address], [address], 12/01/2024 19:22:49 12/02/19 25 12/01/2024 URINA LYSIS ketone Negati ve mg/dL negati ve normal Not Available [facility] [address] [place] [address], [address], 12/01/2024 19:22:49 12/02/19 25 12/01/2024 URINA LYSIS specific gravity 1.018 1.003- 1.035 normal Not Available [facility] [address] [place] [address], [address], 12/01/2024 19:22:49 12/02/19 25 12/01/2024 URINA LYSIS blood Negati ve /uL negati ve normal Not Available [facility] [address] [place] [address], [address], 12/01/2024 19:22:49 12/02/19 25 12/01/2024 URINA LYSIS pH 7 5.0 - 8.0 normal Not Available [facility] [address] [place] [address], [address], 12/01/2024 19:22:49 12/02/19 25 12/01/2024 URINA LYSIS protein Negati ve mg/dL negati ve normal Not Available [facility] [address] [place] [address], [address], 12/01/2024 19:22:49 12/02/19 25 12/01/2024 URINA LYSIS urobilinogen Normal mg/dL normal normal Not Available [facility] [address] [place] [address], [address], 12/01/2024 19:22:49 12/02/19 25 12/01/2024 URINA LYSIS nitrite Negati ve negati ve normal Not Available [facility] [address] [place] [address], [address], 12/01/2024 19:22:49 12/02/19 25 12/01/2024 URINA LYSIS leukocyte esterase Negati ve /uL negati ve normal Not Available [facility] [address] [place] [address], [address], 12/01/2024 19:22:49 12/02/19 25 12/01/2024 URINA LYSIS mucus, urine 2+ /lpf not establ ished normal Not Available [facility] [address] [place] [address], [address], 12/01/2024 19:22:49 12/02/19 25 12/01/2024 URINA LYSIS WBC, urine 0-5 0-5/hp f normal Not Available [facility] [address] [place] [address], [address], 12/01/2024 19:22:49 12/02/19 25 12/01/2024 URINA LYSIS squamous epi. cells 0-5 0-5/hp f normal Not Available [facility] [address] [place] [address], [address], 12/01/2024 19:22:49 12/02/19 25 12/01/2024 URINA LYSIS bacteria Trace /hpf none seen abnormal Not Available [facility] [address] [place] [address], [address], 12/01/2024 19:22:49 12/02/19 25 12/01/2024 URINA LYSIS crystals negati ve abnormal 2+ Amorp hous 2+ Tripl e Phosp hate Not Available [facility] [address] [place] [address], [address], 12/01/2024 19:22:49 12/02/19 25 12/01/2024 TSH WITH REFLE X FT4 TSH with reflex FT4 0.872 u[IU] /mL 0.270- 4.200 normal Not Available [facility] [address] [place] [address], [address], 12/01/2024 19:23:15 12/02/19 25 12/01/2024 B12/F OLIC ACID PANEL folic acid >20.0 NG/mL 4.6-34 .8 normal Not Available [facility] [address] [place] [address], [address], 12/01/2024 19:25:24 12/02/19 25 12/01/2024 B12/F OLIC ACID PANEL vitamin B12 790 pg/mL 232-12 45 normal Not Available [facility] [address] [place] [address], [address], 12/01/2024 19:25:24 12/02/19 25 12/01/2024 COMP. METAB OLIC PANEL glucose 146 mg/dL 74-100 high Not Available [facility] [address] [place] [address], [address], 12/01/2024 19:33:07 12/02/19 25 12/01/2024 COMP. METAB OLIC PANEL blood urea nitrogen 5 mg/dL 6-20 low Not Available [facility] [address] [place] [address], [address], 12/01/2024 19:33:07 12/02/19 25 12/01/2024 COMP. METAB OLIC PANEL creatinine 0.59 mg/dL 0.50-0 .95 normal Not Available [facility] [address] [place] [address], [address], 12/01/2024 19:33:07 12/02/19 25 12/01/2024 COMP. METAB OLIC PANEL BUN/creatini ne ratio 8 (calc ) 10-20 low Not Available [facility] [address] [place] [address], [address], 12/01/2024 19:33:07 12/02/19 25 12/01/2024 COMP. METAB OLIC PANEL sodium 138 mmol/ L 136-14 5 normal Not Available [facility] [address] [place] [address], [address], 12/01/2024 19:33:07 12/02/19 25 12/01/2024 COMP. METAB OLIC PANEL potassium 4.1 mmol/ L 3.4-5. 0 normal Not Available [facility] [address] [place] [address], [address], 12/01/2024 19:33:07 12/02/19 25 12/01/2024 COMP. METAB OLIC PANEL chloride 100 mmol/ L 98-107 normal Not Available [facility] [address] [place] [address], [address], 12/01/2024 19:33:07 12/02/19 25 12/01/2024 COMP. METAB OLIC PANEL carbon dioxide 23 mmol/ L 22-31 normal Not Available [facility] [address] [place] [address], [address], 12/01/2024 19:33:07 12/02/19 25 12/01/2024 COMP. METAB OLIC PANEL anion gap 15 (calc ) 7-25 normal Not Available [facility] [address] [place] [address], [address], 12/01/2024 19:33:07 12/02/19 25 12/01/2024 COMP. METAB OLIC PANEL calcium 9.6 mg/dL 8.6-10 .2 normal Not Available [facility] [address] [place] [address], [address], 12/01/2024 19:33:07 12/02/19 25 12/01/2024 COMP. METAB OLIC PANEL total protein 6.7 g/dL 6.4-8. 3 normal Not Available [facility] [address] [place] [address], [address], 12/01/2024 19:33:07 12/02/19 25 12/01/2024 COMP. METAB OLIC PANEL albumin 4.1 g/dL 3.5-5. 2 normal Not Available [facility] [address] [place] [address], [address], 12/01/2024 19:33:07 12/02/19 25 12/01/2024 COMP. METAB OLIC PANEL globulin 2.6 1.5-4. 5 normal Not Available [facility] [address] [place] [address], [address], 12/01/2024 19:33:07 12/02/19 25 12/01/2024 COMP. METAB OLIC PANEL albumin/glob ulin ratio 1.6 (calc ) 1.1-2. 5 normal Not Available [facility] [address] [place] [address], [address], 12/01/2024 19:33:07 12/02/19 25 12/01/2024 COMP. METAB OLIC PANEL bilirubin, total 0.3 mg/dL 0.1-1. 0 normal NOTE: New refer ence range . Not Available [facility] [address] [place] [address], [address], 12/01/2024 19:33:07 12/02/19 25 12/01/2024 COMP. METAB OLIC PANEL alkaline phosphatase 88 U/L 30-121 normal Not Available [facility] [address] [place] [address], [address], 12/01/2024 19:33:07 12/02/19 25 12/01/2024 COMP. METAB OLIC PANEL AST 26 U/L 0-32 normal Not Available [facility] [address] [place] [address], [address], 12/01/2024 19:33:07 12/02/19 25 12/01/2024 COMP. METAB OLIC PANEL ALT 25 U/L 0-33 normal Not Available [facility] [address] [place], [address], 12/01/2024 19:33:07 12/02/1912/01/2024 COMP. METAB OLIC PANEL eGFR 95 >= 60 normal NOT E New calcu latio n for GFR (CKD- EPI 2020) is formu lated witho ut race adjus tment facto rs at the recom menda tion of the [employer] at[employer] and Ameri can Socie ty of Nephr ology . This calcu latio n has not been valid ated in pregn ant women . For sage juareze nts refer to https ://yolanda good.o rg/pr myron egan s/RAINAO QI/gf r_cal culat orPed Not Available [facility] [address] [place] [address], [address], 12/01/2024 19:33:07 12/02/1912/01/2024 COMPL ETE BLOOD COUNT white blood cells 8.8 10*3/ uL 3.8-10 .8 normal Not Available [facility] [address] [place], [address], 12/01/2024 19:39:20 12/02/1912/01/2024 COMPL ETE BLOOD COUNT red blood cells 4.26 10*6/ uL 3.80-5 .20 normal Not Available [facility] [address] [place], [address], 12/01/2024 19:39:20 12/02/19 25 12/01/2024 COMPL ETE BLOOD COUNT hemoglobin 14.2 g/dL 12.0-1 6.0 normal Not Available [facility] [address] [place] [address], [address], 12/01/2024 19:39:20 12/02/1912/01/2024 COMPL ETE BLOOD COUNT hematocrit 41.4 % 35.0-4 7.0 normal Not Available [facility] [address] [place] [address], [address], 12/01/2024 19:39:20 12/02/1912/01/2024 COMPL ETE BLOOD COUNT MCV 97 fL 80-100 normal Not Available [facility] [address] [place] [address], [address], 12/01/2024 19:39:20 12/02/1912/01/2024 COMPL ETE BLOOD COUNT MCH 33 pg 26-35 normal Not Available [facility] [address] [place] [address], [address], 12/01/2024 19:39:20 12/02/1912/01/2024 COMPL ETE BLOOD COUNT MCHC 34 g/dL 32-36 normal Not Available [facility] [address] [place] [address], [address], 12/01/2024 19:39:20 12/02/1912/01/2024 COMPL ETE BLOOD COUNT RDW 13.4 % 11.0-1 5.0 normal Not Available [facility] [address] [place] [address], [address], 12/01/2024 19:39:20 12/02/19 25 12/01/2024 COMPL ETE BLOOD COUNT MPV 10.6 fL 6.2-10 .5 high Not Available [facility] [address] [place] [address], [address], 12/01/2024 19:39:20 12/02/19 25 12/01/2024 COMPL ETE BLOOD COUNT platelet count 256 10*3/ uL 150-40 0 normal Not Available [facility] [address] [place] [address], [address], 12/01/2024 19:39:20 12/02/19 25 12/01/2024 COMPL ETE BLOOD COUNT neutrophil,a bsolute 6.0 10*3/ uL 1.6-8. 4 normal Not Available [facility] [address] [place] [address], [address], 12/01/2024 19:39:20 12/02/19 25 12/01/2024 COMPL ETE BLOOD COUNT lymphocyte,a bsolute 2.1 10*3/ uL 0.4-5. 1 normal Not Available [facility] [address] [place] [address], [address], 12/01/2024 19:39:20 12/02/19 25 12/01/2024 COMPL ETE BLOOD COUNT monocyte,abs olute 0.5 10*3/ uL 0.0-1. 2 normal Not Available [facility] [address] [place] [address], [address], 12/01/2024 19:39:20 12/02/19 25 12/01/2024 COMPL ETE BLOOD COUNT eosinophil,a bsolute 0.1 10*3/ uL 0.0-0. 8 normal Not Available [facility] [address] [place] [address], [address], 12/01/2024 19:39:20 12/02/1912/01/2024 COMPL ETE BLOOD COUNT basophil,abs olute 0.0 10*3/ uL 0.0-0. 3 normal Not Available [facility] [address] [place] [address], [address], 12/01/2024 19:39:20 12/02/1912/01/2024 COMPL ETE BLOOD COUNT % neutrophils 68.8 % 42.0-7 8.0 normal Not Available [facility] [address] [place] [address], [address], 12/01/2024 19:39:20 12/02/19 25 12/01/2024 COMPL ETE BLOOD COUNT % lymphocytes 24.3 % 11.0-4 7.0 normal Not Available [facility] [address] [place] [address], [address], 12/01/2024 19:39:20 12/02/19 25 12/01/2024 COMPL ETE BLOOD COUNT % monocytes 5.3 % 0.0-11 .0 normal Not Available [facility] [address] [place] [address], [address], 12/01/2024 19:39:20 12/02/19 25 12/01/2024 COMPL ETE BLOOD COUNT % eosinophils 1.1 % 0.0-7. 0 normal Not Available [facility] [address] [place] [address], [address], 12/01/2024 19:39:20 12/02/19 25 12/01/2024 COMPL ETE BLOOD COUNT % basophils 0.5 % 0.0-3. 0 normal Not Available [facility] [address] [place] [address], [address], 12/01/2024 19:39:20 12/02/19 25 12/01/2024 COMPL ETE BLOOD COUNT nucleated red cells 0.0 % 0.0-0. 9 normal Not Available [facility] [address] [place] [address], [address], 12/01/2024 19:39:20 12/02/19 25 12/01/2024 COMPL ETE BLOOD COUNT nucleated RBCs, absolute 0.00 10*3/ uL not estab. normal Not Available [facility] [address] [place] [address], [address], 12/01/2024 19:39:20 12/02/19 25 12/02/2024 GLYCO HEMOG LOBIN A1C glyco HGB A1C 6.2 % 0.0-5. 6 high Not Available [facility] [address] [place] [address], [address], 12/02/2024 11:13:54 12/02/19 25 12/02/2024 GLYCO HEMOG LOBIN A1C estimated avg. glucose 131 mg/dL _(gloria c) normal A1c value s betwe en 5.7% to 6.4% indic ate predi abete s. Resul ts 6.5% or great er is diagn ostic of diabe anival. Ameri can Diabe anival Assoc iatio n (diab etes. org) Not Available [facility] [address] [place], [address], 12/02/2024 11:13:54 Result Notes None recorded. Problems Name Problem SNOMED Code Status Onset Date Resolution Date Notes Provider Name and Address Organization Details Recorded Time Obesity 003089957 Active Not Available [facility] 4 14:08:00 Morbid obesity 140468238 Active Not Available [facility] 5 14:16:35 Renal disorder due to type 2 diabetes mellitus 116064940 Active Not Available [facility] 5 14:16:57 Urinary tract infectiou s disease 58199901 Active 2015 From Automated Load;Provi paulina: Angel Choi; atus: Active Not Available [facility] 6 08:01:39 Type 2 diabetes mellitus without complicat ion 367987199 Active 2022 JI MOSQUERA , DO [address] [place], [address] , [facility] 3 17:04:52 Essential hypertens ion 64887327 Active 2022 JI MOSQUERA , DO [address] [place], [address] , [facility] 3 17:04:53 Mixed hyperlipi demia 570932487 Active 2022 JI MOSQUERA , DO [address] [place], [address] , [facility] 3 17:04:54 Seizure disorder 679527816 Active 2022 JI MOSQUERA , DO [address] [place], [address] , [facility] 3 17:04:56 Cerebrova scular disease 79946505 Active 2024 JI MOSQUERA LL, DO [address] [place], [address] , [facility] 5 14:17:48 Irritable bowel syndrome character ized by constipat ion 047076282 Active 2024 JI MOSQUERA LL, DO [address] [place] [address], [address] , [facility] 5 14:17:51 Moderate major depressio n 621737 Active 2024 IJ MOSQUERA LL, DO [address] [place] [address], [address] , [facility] 5 11:22:08 Problem Notes None recorded. Medical Equipment None Reported. Allergies Allergen ID Allergen Name Allergen Category Reaction Reaction Severity Criticality Documentation Date Start Date Code Code System Note Provider Name and Address Organization Details Recorded Time 20451202 Tequin medicatio n Not available Not available Not available 02/23/20162005 08617 4 RxNorm Comme nt: Creat ed By: Saira Bell selene Date: 01/15 8:27: 00 AM; Not Available [facility] 6 12:27:44 663659 Flagyl medicatio n Not available Not available Not available 02/23/20162015 6 RxNorm Comme nt: Creat ed By: John meadows Date: 2015 12:26 :53 PM; Not Available [facility] 6 12:27:44 932492 aspirin medicatio n Not available Not available Not available 02/23/20162005 1191 RxNorm Comme nt: Creat ed By: Saira Isabel ;Minora selene Date: 01/15 8:27: 28 AM; Not Available [facility] 6 12:37:17 093328 Substance with sulfonami de structure and antibacte rial mechanism of action (substanc e) medicatio n Not available Not available Not available 02/24/20162005 20979 8003 SNOMED Comme nt: Creat ed By: Saira Isabel ;Crea selene Date: 01/15 8:24: 43 AM; Not Available [facility] 6 03:13:54 654850 pertussis vaccine medicatio n Not available Not available Not available 02/24/20162005 8080 RxNorm Comme nt: Creat ed By: Saira Isabel ;Crea selene Date: 01/15 8:27: 39 AM; Not Available [facility] 6 03:13:54 258837 codeine medicatio n Not available Not available Not available 02/24/20162015 2670 RxNorm Comme nt: Creat ed By: John meadows Date: 2015 12:27 :13 PM; Not Available [facility] 6 03:13:54 180265 tetracycl ine hydrochlo ride medicatio n Not available Not available Not available 02/24/20162005 62270 6 RxNorm Comme nt: Creat ed By: Saira Isabel ;Crea selene Date: 01/15 8:26: 48 AM; Not Available [facility] 6 10:28:13 Medications Name Sig Start Date Stop Date Status Note LastModified by Organization Details LastModified Time atorvasta tin 80 mg tablet TAKE 1 TABLET DAILY 2024 [...] on HCl 4 mg tablet Take 1 tablet 3 times a day by oral route as needed for 90 days. 2024 active Not Available Not Available Not Avai lable simvastat in 10 mg tablet Take 1 tablet every day by oral route. 06/16 completed Not Available Not Available Not Available valsartan 80 mg tablet Take 1 tablet every day by oral route. 12/01 completed Not Available Not Available Not Available phenytoin sodium extended 100 mg capsule [...] tablet Not Available Not Available Not Available Xanax 0.25 mg tablet Take 1 tablet every day by oral route as needed for 90 days, for nausea. cramping . 2024 active Not Available Not Available Not Avai lable pantopraz ole 40 mg tablet,de layed release [...] day by oral route for 90 days. 09/18 completed Not Available Not Available Not Available AcipHex 20 mg tablet,de layed release Daily 05/20 completed Duration : 30 days;Chno quency: daily;Me dication Descript ion: rabepraz ole; Dosage:1 ; Route:or al; refills: 0; Quantity :30 tablet, extended release Not Available Not Available Not Available valsartan 160 mg tablet Take 1 tablet every day by oral route for 90 days. 12/01 completed Not Available Not Available Not Available valsartan 40 mg tablet TAKE 1 TABLET BY MOUTH DAILY 2024 active Not Available Not Available Not Avai lable cyclospor ine 0.05 % eye drops in a dropperet te 06/16 completed Not Available Not Available Not Available Climara Pro 0.045 mg-0.015 mg/24 hr transderm al patch 05/20 completed Medicati on Descript ion: estradio l-levono rgestrel ; Route:tr ansderma l; refills: 0 Not Available Not Available Not Available aspirin daily active Not Available Not Avail able Not Available phenytoin Every night at bedtime [...] 100 mg tablet TAKE 1 TABLET DAILY 12/15 completed Not Available Not Available Not Available Bystolic 5 mg tablet Take 1 tablet every day by oral route. 2024 active Not Available Not Available Not Avai lable Astepro 137 mcg (0.1 %) nasal spray [place] 2 sprays twice a day by intranas [...] 137 mcg-fluti casone 50 mcg/spray nasal spray [place] 1 spray twice a day by intranas [...] blood by Pulse oximetry Body temperature Systolic And Diastolic Provider Name and Address Organization Details Last Updated DateTime 149.86 cm 27.9 kg/m2 00390.1 5 g 73 /min 97 % 97 % 96.6 [degF] 150/66 mm[Hg] Bambi Silva [facility] 14:25:54 Social History Question Answer Notes LastModified by Organizat ion Details LastModified Time Tobacco Smoking Status Never Smoker Snehal Sawyer [facility] 02/13/2023 14:17:59 What Was The Date Of [...] Time Influenza, high-dose, quadrivalent, PF 01/05/2022 completed Marianlawrence Guzman [facility] 03/26/2024 14:45:01 Influenza, high-dose, quadrivalent, PF 01/22/2023 completed Marian Guzman [facility] 03/26/2024 14:45:01 COVID-19, mRNA, LNP-S, PF, 30 mcg/0.3 mL dose 05/07/2020 completed Marian Guzman [facility] 03/26/2024 14:45:01 COVID-19, mRNA, LNP-S, PF, 30 mcg/0.3 mL dose 05/28/2020 [facility] 14:45:01 COVID-19, mRNA, LNP-S, PF, 30 mcg/0.3 mL dose 12/26/2020 completed Marianlawrence Guzman [facility] 03/26/2024 14:45:01 COVID-19, mRNA, LNP-S, PF, 30 mcg/0.3 mL dose, jacob-sucrose 08/18/2021 completed Marian [facility] 03/26/2024 14:45:01 COVID-19, mRNA, LNP-S, bivalent, PF, 30 mcg/0.3 mL dose 01/05/2022 completed Marian Guzman [facility] 03/26/2024 14:45:01 COVID-19, mRNA, LNP-S, PF, jacob-sucrose, 30 mcg/0.3 mL 01/22/2023 completed Marianlawrence Guzman [facility] 03/26/2024 14:45:01 RSV, bivalent, protein subunit RSVpreF, diluent reconstituted, 0.5 mL, PF 03/06/2023 completed Marian Guzman [facility] 03/26/2024 14:54:50 COVID-19, mRNA, LNP-S, PF, 50 mcg/0.5 mL 01/29/2024 completed Not Available [facility] 13:46:17 Influenza, high-dose, trivalent, PF 01/27/2024 completed Snehal Sawyer [facility] 01/27/2024 14:45:43 Influenza, high-dose, trivalent, PF 12/15/2024 completed Bambi Silva [facility] 12/16/2024 08:35:27 RSV, recombinant, protein subunit RSVpreF, adjuvant reconstituted, 0.5 mL, PF 12/15/2024 completed Bambi Silva [facility] 12/16/2024 08:35:27 Past Encounters Encounter ID Performer Location Encounter Start Date Encounter Closed Date Diagnosis/Indication Diagnosis SNOMED-CT Code Diagnosis ICD10 Code Diagnosis IMO Codes Diagnosis Note [id number] JI MOSQUERA , DO [facility] [address] [place] [address] 12/01/2024 13:45:04 12/01/2024 14:16:46 Moderate major depression 156305 F32.1 [id number] 09/23-Patichaparro nt has had depressive symptoms for several [...] start low-dose Zoloft, no SI. Follow-up 6 weeks09/23- side effects to zoloft- to 1.2 pill- basically altered - dc meds10/23-n o change, hesitant to add medicine at this point Irritable bowel syndrome characterized by constipation [id number] K58.1 006173 08/23 still slow - rec mom-10/23- still slow- was been off mom-plans to take in more prunes using magnesia as needed12/24 - - Continue with a dietary strategy with prunes; use milk of magnesia as needed for relief. Essential hypertension [id number] I10 Medication decision made based on pt's allergies and co-morbid conditions including: HTN, T2DM08/23-v alsartan 80, might need to decrease blood pressure medicine as weight drops09/23- same.10/23- BP variable- sometimes high. average last month high.-incr eased valsartan to 1609/25 - dc diovan-try Bystolic - Shift from valsartan to Bistolic for improved control, with blood pressure monitoring Seizure disorder [id number] G40.909 seeing neuro now.11/17-n eurologist referred her to recently left the practice, she is stable, evaluation was unrevealin g, we will simply continue her medication for now05/26 - stable06/23 - documented seizure- on meds- seeing [place] neuro08/23- on phentoyn and keppra - seeing Meño in [facility]- did EEG. n [place] sleep test scheduled- then follow up-dont know results.- no more seizure no med changes09/30-planning to follow-up with neurologis t at [place]- Continue management , observe potential effects of medication changes Abnormal weight loss [id number] R63.4 [id number] 08/23-charley rning, but felt to be multifacto rial, recent EGD was normal, recheck labs today09/23- up 2 lbs. stable11/23 - more nauseated. weight dropping-- on ppi- on chronic zoftan.12/01 5-she has always had irritable bowel type GI complaints , nausea cramping, but now this is associated with some food aversion and weight loss, difficult to really tell what is making her symptoms worse, could be too much medicine we will attempt to try to decrease some doses of medicine Type 2 carlos enrique betes mellitus without complication [id number] E11.9 on januvia., aic 6.9 02/21, LDL 788/19- surendra labs today . tolerates januva well.11/22- aic 7.05/26-ch mally routine labs, microalbum in, no complicati ons that we know of08/23- losing weight-rec heck A1c might be able to stop Ogfvfdll9h 6.39.25- losing weight -hold Januvia for now-May need to liberalize diet some [id number] JI DEMETRI LL, DO [facility] [address] [place] [address] 12/15/2024 14:00:13 12/15/2024 15:12:01 Moderate major depression 268779 F32.1 93885 09/23-Patie nt has had depressive symptoms for [...] start low-dose Zoloft, no SI. Follow-up 6 weeks09/23- side effects to zoloft- to 1.2 pill- basically altered - dc meds10/23-n o change, hesitant to add medicine at this point12/24- no change Irritable bowel syndrome characterized by constipation [id number] K58.1 [id number] 08/23 still slow - rec mom-10/23- still slow- was been off mom-plans to take in more prunes using magnesia as needed12/24 -no change, despite changes in medical regimen - Continue with a dietary strategy with prunes; use milk of magnesia as needed for relief. Essential hypertension [id number] I10 Medication decision made based on pt's allergies and co-morbid conditions including: HTN, T2DM08/23-v alsartan 80, might need to decrease blood pressure medicine as weight drops09/23- same.10/23- BP variable- sometimes high. average last month high.-incr eased valsartan to 1609/25 - dc diovan-try Bystolic- BP back high- no imorovment in ill effects- restart valsartan lower dose. Seizure disorder [id number] 02 G40.909 seeing neuro now.11/17-n eurologist referred her to recently left the practice, she is stable, evaluation was unrevealin g, we will simply continue her medication for now05/26 - stable06/23 - documented seizure- on meds- seeing neuro08/23- on phentoyn and keppra - seeing Meño in [facility]- did EEG. n house sleep test scheduled- then follow up-dont know results.- no more seizure no med changes09/30-planning to follow-up with neurologsymone frank at [place]- Continue management , observe potential effects of medication changes Abnormal weight loss [phone] [id number] R63.4 [id number] 08/23-charley rning, but felt to be multifacto rial, recent EGD was normal, recheck labs today09/23- up 2 lbs. stable11/23 - more nauseated. weight dropping-- on ppi- on chronic zoftan.12/01-she has always had irritable bowel type GI complaints , nausea cramping, but now this is associated with some food aversion and weight loss, difficult to really tell what is making her symptoms worse, could be too much medicine we will attempt to try to decrease some doses of medicine- continues- dont think is side effect to meds. - ok to restart Type 2 carlos enrique betes mellitus without complication [id number] E11.9 on januvia., aic 6.9 02/21, LDL 788/19- surendra labs today . tolerates januva well.11/22- aic 7.05/26-ch mally routine labs, microalbum in, no complicati ons that we know of08/23- losing weight-rec heck A1c might be able to stop [id number] 6.39.25- losing weight -hold Januvia for now-May need to liberalize diet some12/24- still losing weight - continue to hld januvia Nausea and vomiting 3 1999 R11.2 12/24-persi stent nausea abdominal discomfort , has had multiple evaluation s in the past, recommend low-dose anxiety medicine to see if that can improve some of her symptoms Gastroesop hageal reflux disease without esophagitis [id number] K21.9 Symptoms reasonably well-contr olled on PPI, antinausea medication as needed05/26 - symptoms ok. EGD ok08/23-elias rologist was concerned about some of her nausea meds recommende d to try Zofran continue PPI.09/23-d oing okay on PPI and Zofran9/25 failed trial off meds -restart PPI and Zofran as needed Vaccination needed [id number] 09904 Z23 [id number] Health Concerns Section Related Observation LastModified by Organization Detai ls LastModified Time None Recorded Concern Status LastModified by Organization Details LastModified Time None Recorded Payers Encounter Date Sequence Insurance Name Policy Number Policy Ibrahim Covered Member ID Ibrahim Member ID Guarantor Name 12/15/2024 1 [employer]MEDICARE[place] Elizabeth Pozo [id number] Elizabeth Pozo 12/15/2024 2 [employer] (MEDICARE SUPPLEMENT) Elizabeth Pozo [id number] Elizabeth Pozo Notes Date Note Type Note Provider Name and Address Organization Details Recorded Time 12/15/2024 text/html The patient is a 74 year old female presenting with evaluation and management of gastrointestinal symptoms including cramping, nausea, and weight loss. She has experienced recurrent cramping and nausea, possibly exacerbated by anxiety. Symptoms temporarily improved but have since resumed, notably during periods of increased stress. An attempt to manage symptoms without some medications was ultimately unsuccessful, with persistent nausea and no weight gain observed. The anxiety-related component is notable, potentially influencing the gastrointestinal issues, particularly during stressful times such as managing family responsibilities and a recent house move. Recently had radical cessation of multiple medicines blood pressure medicines, aspirin, PPI, diabetes medicines, but her symptoms have not changed at all , effectively ruling out medication side effects is the cause of her symptoms Medical History: - Moderate Major Depression - Irritable Bowel Syndrome with Constipation - Essential Hypertension - Seizure Disorder - Abnormal Weight Loss - Nausea and Vomiting - Gastroesophageal Reflux Disease without Esophagitis - Type 2 Diabetes Mellitus without Complication Medications: - Zofran: For nausea - Aspirin: Indication not specified - Valsartan 40 mg: For hypertension Social History: - Reports experiencing stress and anxiety, likely impacting her gastrointestinal symptoms, related to family dynamics and personal circumstances such as moving and caring for an unwell family member. Family History: - The patient reports concerns related to her mother's deteriorating health. Documentation on this patient encounter was supported using voice-enabled Al technology. The patient consented to recording for the purpose of documenting the encounter. Provider reviewed content of the generated note prior to signature. JI CORONA, DO [address] [place], [address], [facility] 12/15/2024 17:05:38 OBGyn Episode No OBEpisode recorded.
--- OUTSIDE RECORDS SUMMARY | 2025-01-21 07:42 | XMS_ITS | Continuity of Care Document ---
Author Organization [place] [facility] Address [address] [place] [address] Assessment Encounter Date Assessment Date Assessment LastModified by Organization Details LastModified Time 12/01/2024 12/01/2024 - 74-year-old female with a history of essential hypertension, seizure disorder, and type 2 diabetes mellitus presenting with altered mental status and gastrointestinal symptoms: - Persistent nausea, abdominal cramps, and weight loss suggest an aggravated state potentially linked to current medications, requiring reassessment of management strategies. - Erratic blood pressure control and inconsistent blood sugar monitoring necessitate refined therapeutic approaches for comprehensive management. - Consideration of aligning medication regimens more closely with the patient's symptomatic experiences to potentially alleviate adverse effects. carmen Not available 12/01/2024 17:06:09 Plan of Treatment Reminders Order Date Submit Date Provider Last Modified By Organization Details Last Modified Time Details Appointments RECHE CK 2024 02:00P M DR CORONA Not available Not available Not available Lab CMP, serum or plasm a 2024 025 [facility], [address] [place] [address], [id number], 12/01/2024 19:33:07 vitam in B12 + folat e, serum or blood 2024 025 [facility], [address] [place] [address], [id number], 12/01/2024 19:25:24 CBC w/ auto diff 2024 025 [facility], [address] [place] [address], [id number], 12/01/2024 19:39:20 urina lysis , compl ete 2024 [facility], [address] [place] [address], [id number], 12/01/2024 19:22:49 TSH, serum , refle x free T4 2024 [facility], [address] [place] [address], [id number], 12/01/2024 19:23:15 Referral None recor ded. Procedures None recor ded. Surgeries None recor ded. Imaging None recor ded. Medication Orders Bysto lic 5 mg table t 2024 [facility], [address] [place] [address], [id number], 12/01/2024 14:15:04 Patient TargetsNo targets recorded. Patient Instructions Encounter Date Encounter Id Patient Instructions Last Modified By Organization Details Last Modified Time 12/01/2024 [id number] - Monitor your blood pressure at home regularly. - Gradually adjust your diet to include more fruit, like prunes, for digestive health. - Continue checking blood sugar frequently to ensure it stays within a healthy range. - Discontinue valsartan as advised and start the new medication Bistolic as prescribed. - Pay special attention to any side effects from medications and report them promptly. - Ensure regular meals and improve nutritional intake, considering symptoms impacting your appetite. [id number] Not available 12/01/2024 14:15:45 Reason for Referral None Reported. Results Created Date Observation Date Name Description Value Unit Range Abnormal Flag Note LastModifiedBy Organization Detail LastModifiedTime 12/02/1912/01/2024 URINA LYSIS color Yellow normal Not Available [facility] [address] [place] [address], [phone], 12/01/2024 19:22:49 12/02/1912/01/2024 URINA LYSIS appearance Clear normal Not Available [facility] [address] [place] [address], [id number], 12/01/2024 19:22:49 12/02/19 25 12/01/2024 URINA LYSIS glucose Normal mg/dL normal normal Not Available [facility] [address] [place] [address], [address], 12/01/2024 19:22:49 12/02/19 25 12/01/2024 URINA LYSIS bilirubin Negati ve mg/dL negati ve normal Not Available [facility] [address] [place] [address], [address], 12/01/2024 19:22:49 12/02/19 25 12/01/2024 URINA LYSIS ketone Negati ve mg/dL negati ve normal Not Available [facility] [address] [place] [address], [address], 12/01/2024 19:22:49 12/02/19 25 12/01/2024 URINA LYSIS specific gravity 1.018 1.003- 1.035 normal Not Available [facility] [address] [place] [address], [address], 12/01/2024 19:22:49 12/02/19 25 12/01/2024 URINA LYSIS blood Negati ve /uL negati ve normal Not Available [facility] [address] [place] [address], [address], 12/01/2024 19:22:49 12/02/19 25 12/01/2024 URINA LYSIS pH 7 5.0 - 8.0 normal Not Available [facility] [address] [place] [address], [address], 12/01/2024 19:22:49 12/02/19 25 12/01/2024 URINA LYSIS protein Negati ve mg/dL negati ve normal Not Available [facility] [address] [place] [address], [address], 12/01/2024 19:22:49 12/02/19 25 12/01/2024 URINA LYSIS urobilinogen Normal mg/dL normal normal Not Available [facility] [address] [place] [address], [address], 12/01/2024 19:22:49 12/02/19 25 12/01/2024 URINA LYSIS nitrite Negati ve negati ve normal Not Available [facility] [address] [place] [address], [address], 12/01/2024 19:22:49 12/02/19 25 12/01/2024 URINA LYSIS leukocyte esterase Negati ve /uL negati ve normal Not Available [facility] [address] [place] [address], [address], 12/01/2024 19:22:49 12/02/19 25 12/01/2024 URINA LYSIS mucus, urine 2+ /lpf not establ ished normal Not Available [facility] [address] [place] [address], [address], 12/01/2024 19:22:49 12/02/19 25 12/01/2024 URINA LYSIS WBC, urine 0-5 0-5/hp f normal Not Available [facility] [address] [place] [address], [address], 12/01/2024 19:22:49 12/02/19 25 12/01/2024 URINA LYSIS squamous epi. cells 0-5 0-5/hp f normal Not Available [facility] [address] [place] [address], [address], 12/01/2024 19:22:49 12/02/19 25 12/01/2024 URINA LYSIS bacteria Trace /hpf none seen abnormal Not Available [facility] [address] [place] [address], [address], 12/01/2024 19:22:49 12/02/19 25 12/01/2024 URINA LYSIS crystals negati ve abnormal 2+ Amorp hous 2+ Tripl e Phosp hate Not Available [facility] [address] [place] [address], [address], 12/01/2024 19:22:49 12/02/19 25 12/01/2024 TSH WITH REFLE X FT4 TSH with reflex FT4 0.872 u[IU] /mL 0.270- 4.200 normal Not Available [facility] [address] [place] [address], [address], 12/01/2024 19:23:15 12/02/19 25 12/01/2024 B12/F OLIC ACID PANEL folic acid >20.0 NG/mL 4.6-34 .8 normal Not Available [facility] [address] [place] [address], [address], 12/01/2024 19:25:24 12/02/19 25 12/01/2024 B12/F OLIC ACID PANEL vitamin B12 790 pg/mL 232-12 45 normal Not Available [facility] [address] [place] [address], [address], 12/01/2024 19:25:24 12/02/19 25 12/01/2024 COMP. METAB OLIC PANEL glucose 146 mg/dL 74-100 high Not Available [facility] [address] [place] [address], [address], 12/01/2024 19:33:07 12/02/19 25 12/01/2024 COMP. METAB OLIC PANEL blood urea nitrogen 5 mg/dL 6-20 low Not Available [facility] [address] [place] [address], [address], 12/01/2024 19:33:07 12/02/19 25 12/01/2024 COMP. METAB OLIC PANEL creatinine 0.59 mg/dL 0.50-0 .95 normal Not Available [facility] [address] [place] [address], [address], 12/01/2024 19:33:07 12/02/19 25 12/01/2024 COMP. METAB OLIC PANEL BUN/creatini ne ratio 8 (calc ) 10-20 low Not Available [facility] [address] [place] [address], [address], 12/01/2024 19:33:07 12/02/19 25 12/01/2024 COMP. METAB OLIC PANEL sodium 138 mmol/ L 136-14 5 normal Not Available [facility] [address] [place] [address], [address], 12/01/2024 19:33:07 12/02/19 25 12/01/2024 COMP. METAB OLIC PANEL potassium 4.1 mmol/ L 3.4-5. 0 normal Not Available [facility] [address] [place] [address], [address], 12/01/2024 19:33:07 12/02/19 25 12/01/2024 COMP. METAB OLIC PANEL chloride 100 mmol/ L 98-107 normal Not Available [facility] [address] [place] [address], [address], 12/01/2024 19:33:07 12/02/19 25 12/01/2024 COMP. METAB OLIC PANEL carbon dioxide 23 mmol/ L 22-31 normal Not Available [facility] [address] [place] [address], [address], 12/01/2024 19:33:07 12/02/19 25 12/01/2024 COMP. METAB OLIC PANEL anion gap 15 (calc ) 7-25 normal Not Available [facility] [address] [place] [address], [address], 12/01/2024 19:33:07 12/02/19 25 12/01/2024 COMP. METAB OLIC PANEL calcium 9.6 mg/dL 8.6-10 .2 normal Not Available [facility] [address] [place] [address], [address], 12/01/2024 19:33:07 12/02/19 25 12/01/2024 COMP. METAB OLIC PANEL total protein 6.7 g/dL 6.4-8. 3 normal Not Available [facility] [address] [place] [address], [address], 12/01/2024 19:33:07 12/02/19 25 12/01/2024 COMP. METAB OLIC PANEL albumin 4.1 g/dL 3.5-5. 2 normal Not Available [facility] [address] [place] [address], [address], 12/01/2024 19:33:07 12/02/19 25 12/01/2024 COMP. METAB OLIC PANEL globulin 2.6 1.5-4. 5 normal Not Available [facility] [address] [place] [address], [address], 12/01/2024 19:33:07 12/02/19 25 12/01/2024 COMP. METAB OLIC PANEL albumin/glob ulin ratio 1.6 (calc ) 1.1-2. 5 normal Not Available [facility] [address] [place] [address], [address], 12/01/2024 19:33:07 12/02/19 25 12/01/2024 COMP. METAB OLIC PANEL bilirubin, total 0.3 mg/dL 0.1-1. 0 normal NOTE: New refer ence range . Not Available [facility] [address] [place] [address], [address], 12/01/2024 19:33:07 12/02/19 25 12/01/2024 COMP. METAB OLIC PANEL alkaline phosphatase 88 U/L 30-121 normal Not Available [facility] [address] [place] [address], [address], 12/01/2024 19:33:07 12/02/19 25 12/01/2024 COMP. METAB OLIC PANEL AST 26 U/L 0-32 normal Not Available [facility] [address] [place], [address], 12/01/2024 19:33:07 12/02/19 25 12/01/2024 COMP. METAB OLIC PANEL ALT 25 U/L 0-33 normal Not Available [facility] [address] [place], [address], 12/01/2024 19:33:07 12/02/19 25 12/01/2024 COMP. METAB OLIC PANEL eGFR 95 >= 60 normal NOT E New calcu latio n for GFR (CKD- EPI 2020) is formu lated witho cathie race adjus tment facto rs at the recom menda tion of the Yulia Lundberg y Constance salas and Diego Gonsales ty of Nephr ology . This calcu latio n has not been valid ated in pregn ant women . For pedia tric patie nts refer to https ://yolanda angelo.angelika good.o rg/pr ofess ional s/KDO QI/gf r_cal culat orPed Not Available [facility] [place], [address], 12/01/2024 19:33:07 12/02/1912/01/2024 COMPL ETE BLOOD COUNT white blood cells 8.8 10*3/ uL 3.8-10 .8 normal Not Available [facility] [address] [place] [address], [address], 12/01/2024 19:39:20 12/02/19 25 12/01/2024 COMPL ETE BLOOD COUNT red blood cells 4.26 10*6/ uL 3.80-5 .20 normal Not Available [facility] [address] [place], [address], 12/01/2024 19:39:20 12/02/19 25 12/01/2024 COMPL ETE BLOOD COUNT hemoglobin 14.2 g/dL 12.0-1 6.0 normal Not Available [facility] [address] [place] [address], [address], 12/01/2024 19:39:20 12/02/1912/01/2024 COMPL ETE BLOOD COUNT hematocrit 41.4 % 35.0-4 7.0 normal Not Available [facility] [address] [place] [address], [address], 12/01/2024 19:39:20 12/02/1912/01/2024 COMPL ETE BLOOD COUNT MCV 97 fL 80-100 normal Not Available [facility] [address] [place] [address], [address], 12/01/2024 19:39:20 12/02/1912/01/2024 COMPL ETE BLOOD COUNT MCH 33 pg 26-35 normal Not Available [facility] [address] [place] [address], [address], 12/01/2024 19:39:20 12/02/19 25 12/01/2024 COMPL ETE BLOOD COUNT MCHC 34 g/dL 32-36 normal Not Available [facility] [address] [place] [address], [address], 12/01/2024 19:39:20 12/02/1912/01/2024 COMPL ETE BLOOD COUNT RDW 13.4 % 11.0-1 5.0 normal Not Available [facility] [address] [place] [address], [address], 12/01/2024 19:39:20 12/02/19 25 12/01/2024 COMPL ETE BLOOD COUNT MPV 10.6 fL 6.2-10 .5 high Not Available [facility] [address] [place] [address], [address], 12/01/2024 19:39:20 12/02/19 25 12/01/2024 COMPL ETE BLOOD COUNT platelet count 256 10*3/ uL 150-40 0 normal Not Available [facility] [address] [place] [address], [address], 12/01/2024 19:39:20 12/02/19 25 12/01/2024 COMPL ETE BLOOD COUNT neutrophil,a bsolute 6.0 10*3/ uL 1.6-8. 4 normal Not Available [facility] [address] [place] [address], [address], 12/01/2024 19:39:20 12/02/1912/01/2024 COMPL ETE BLOOD COUNT lymphocyte,a bsolute 2.1 10*3/ uL 0.4-5. 1 normal Not Available [facility] [address] [place] [address], [address], 12/01/2024 19:39:20 12/02/19 25 12/01/2024 COMPL ETE BLOOD COUNT monocyte,abs olute 0.5 10*3/ uL 0.0-1. 2 normal Not Available [facility] [address] [place] [address], [address], 12/01/2024 19:39:20 12/02/1912/01/2024 COMPL ETE BLOOD COUNT eosinophil,a bsolute 0.1 10*3/ uL 0.0-0. 8 normal Not Available [facility] [address] [place] [address], [address], 12/01/2024 19:39:20 12/02/1912/01/2024 COMPL ETE BLOOD COUNT basophil,abs olute 0.0 10*3/ uL 0.0-0. 3 normal Not Available [facility] [address] [place] [address], [address], 12/01/2024 19:39:20 12/02/19 25 12/01/2024 COMPL ETE BLOOD COUNT % neutrophils 68.8 % 42.0-7 8.0 normal Not Available [facility] [address] [place] [address], [address], 12/01/2024 19:39:20 12/02/19 25 12/01/2024 COMPL ETE BLOOD COUNT % lymphocytes 24.3 % 11.0-4 7.0 normal Not Available [facility] [address] [place] [address], [address], 12/01/2024 19:39:20 12/02/19 25 12/01/2024 COMPL ETE BLOOD COUNT % monocytes 5.3 % 0.0-11 .0 normal Not Available [facility] [address] [place] [address], [address], 12/01/2024 19:39:20 12/02/19 25 12/01/2024 COMPL ETE BLOOD COUNT % eosinophils 1.1 % 0.0-7. 0 normal Not Available [facility] [address] [place] [address], [address], 12/01/2024 19:39:20 12/02/19 25 12/01/2024 COMPL ETE BLOOD COUNT % basophils 0.5 % 0.0-3. 0 normal Not Available [facility] [address] [place] [address], [address], 12/01/2024 19:39:20 12/02/19 25 12/01/2024 COMPL ETE BLOOD COUNT nucleated red cells 0.0 % 0.0-0. 9 normal Not Available [facility] [address] [place] [address], [address], 12/01/2024 19:39:20 12/02/19 25 12/01/2024 COMPL ETE BLOOD COUNT nucleated RBCs, absolute 0.00 10*3/ uL not estab. normal Not Available [facility] [address] [place] [address], [address], 12/01/2024 19:39:20 12/02/19 25 12/02/2024 GLYCO HEMOG LOBIN A1C glyco HGB A1C 6.2 % 0.0-5. 6 high Not Available [facility] [address] [place], [address], 12/02/2024 11:13:54 12/02/1912/02/2024 GLYCO HEMOG LOBIN A1C estimated avg. glucose 131 mg/dL _(gloria c) normal A1c value s betwe en 5.7% to 6.4% indic ate predi abete s. Resul ts 6.5% or great er is diagn ostic of diabe anival. Ameri can Diabe anival Assoc iatio n (diab etes. org) Not Available [facility] [address] [place], [address], 12/02/2024 11:13:54 Result Notes None recorded. Problems Name Problem SNOMED Code Status Onset Date Resolution Date Notes Provider Name and Address Organization Details Recorded Time Obesity 655610375 Active Not Available [email or web address] 4 14:08:00 Morbid obesity 051934994 Active Not Available [email or web address] 5 14:16:35 Renal disorder due to type 2 diabetes mellitus 124879071 Active Not Available [email or web address] 5 14:16:57 Urinary tract infectiou s disease 90262444 Active 2015 From Automated [employer];Provi paulina: Angel Choi; atus: Active Not Available [facility] 6 08:01:39 Type 2 diabetes mellitus without complicat ion 857371604 Active 2022 JI MOSQUERA LL, DO [address] [place] [address], [address] , [facility] 3 17:04:52 Essential hypertens ion 57592473 Active 2022 JI SANCHEZ, DO [address] [place] [address], [address] , [facility] 3 17:04:53 Mixed hyperlipi demia 209699370 Active 2022 JI SANCHEZ, DO [address] [place] [address], [address] , [facility] 3 17:04:54 Seizure disorder 252223443 Active 2022 JI DEMETRI SANCHEZ, DO [address] [place], [address] , [facility] 3 17:04:56 Cerebrova scular disease 27351749 Active 20[place] [address] [place] [address], [address] , [facility] 5 14:17:48 Irritable bowel syndrome character ized by constipat ion 729310015 Active 20[place] [address] [place] [address], [address] , [facility] 5 14:17:51 Moderate major depressio n 793283 Active 2024 JI DEMETRI SANCHEZ, DO [address] [place] [address], [phone] 5 11:22:08 Problem Notes None recorded. Medical Equipment None Reported. Allergies Allergen ID Allergen Name Allergen Category Reaction Reaction Severity Criticality Documentation Date Start Date Code Code System Note Provider Name and Address Organization Details Recorded Time 20451202 Tequin medicatio n Not available Not available Not available 02/23/20162005 40442 4 RxNorm Comme nt: Creat ed By: Saira morton Date: 01/15 8:27: 00 AM; Not Available [facility] 6 12:27:44 016141 Flagyl medicatio n Not available Not available Not available 02/23/20162015 6 RxNorm Comme nt: Creat ed By: John meadows Date: 2015 12:26 :53 PM; Not Available [facility] 6 12:27:44 231299 aspirin medicatio n Not available Not available Not available 02/23/20162005 1191 RxNorm Comme nt: Creat ed By: Saira Isabel ;Crea selene Date: 01/15 8:27: 28 AM; Not Available [facility] 6 12:37:17 289832 Substance with sulfonami de structure and antibacte rial mechanism of action (substanc e) medicatio n Not available Not available Not available 02/24/20162005 16474 8003 SNOMED Comme nt: Creat ed By: Saira Isabel ;Crea selene Date: 01/15 8:24: 43 AM; Not Available [facility] 6 03:13:54 364309 pertussis vaccine medicatio n Not available Not available Not available 02/24/20162005 8080 RxNorm Comme nt: Creat ed By: Saira Isabel ;Minora selene Date: 01/15 8:27: 39 AM; Not Available [facility] 6 03:13:54 134993 codeine medicatio n Not available Not available Not available 02/24/20162015 2670 RxNorm Comme nt: Creat ed By: John meadows Date: 2015 12:27 :13 PM; Not Available [facility] 6 03:13:54 654175 tetracycl ine hydrochlo ride medicatio n Not available Not available Not available 02/24/20162005 87521 6 RxNorm Comme nt: Creat ed By: Saira Isabel ;Minora selene Date: 01/15 8:26: 48 AM; Not Available [facility] 6 10:28:13 Medications Name Sig Start Date [...] Astepro 137 mcg (0.1 %) nasal spray [place] 2 sprays twice a day by intranas [...] 137 mcg-fluti casone 50 mcg/spray nasal spray [place] 1 spray twice a day by intranas [...] Details Last Updated DateTime 5 149.86 cm 28.5 kg/m2 12255.9 2 g 84 /min 97 % 97 % 97.8 [degF] 154/62 mm[Hg] Bambi Silva [facility] 13:54:50 Social History Question Answer Notes LastModified by Organizat ion Details LastModified Time Tobacco Smoking Status Never Smoker Snehal dean [facility] 02/13/2023 14:17:59 What Was The Date Of Your Most Recent Tobacco Screening? 11/18/2023 [email or web address] Information not available 11/18/2023 Has Tobacco Cessation Counseling Been Provided? No [email or web address] Information not available 02/13/2023 Sex: Unknown Functional [...] high-dose, quadrivalent, PF 01/05/2022 completed Marian Guzman [facility] 03/26/2024 14:45:01 Influenza, high-dose, quadrivalent, PF 01/22/2023 completed Marian Guzman [facility] 03/26/2024 14:45:01 COVID-19, mRNA, LNP-S, PF, 30 mcg/0.3 mL dose 05/07/2020 completed Marian Guzman [facility] 03/26/2024 14:45:01 COVID-19, mRNA, LNP-S, PF, 30 mcg/0.3 mL dose 05/28/2020 completed Marian Guzman [facility] 03/26/2024 14:45:01 COVID-19, mRNA, LNP-S, PF, 30 mcg/0.3 mL dose 12/26/2020 completed Marian Guzman [facility] 03/26/2024 14:45:01 COVID-19, mRNA, LNP-S, PF, 30 mcg/0.3 mL dose, jacob-sucrose 08/18/2021 completed Marian Guzman [facility] 03/26/2024 14:45:01 COVID-19, mRNA, LNP-S, bivalent, PF, 30 mcg/0.3 mL dose 01/05/2022 completed Marian Guzman [facility] 03/26/2024 14:45:01 COVID-19, mRNA, LNP-S, PF, jacob-sucrose, 30 mcg/0.3 mL 01/22/2023 completed Marian Guzman null, [facility] 03/26/2024 14:45:01 RSV, bivalent, protein subunit RSVpreF, diluent reconstituted, 0.5 mL, PF 03/06/2023 completed Marian Guzman [facility] 03/26/2024 14:54:50 COVID-19, mRNA, LNP-S, PF, 50 mcg/0.5 mL 01/29/2024 completed Not Available [facility] 13:46:17 Influenza, high-dose, trivalent, PF 01/27/2024 completed Snehal Sawyer null, [facility] 01/27/2024 14:45:43 Influenza, high-dose, trivalent, PF 12/15/2024 completed Bambi Silva [facility] 12/16/2024 08:35:27 RSV, recombinant, protein subunit RSVpreF, adjuvant reconstituted, 0.5 mL, PF 12/15/2024 completed Bambi Silva [facility] 12/16/2024 08:35:27 Past Encounters Encounter ID Performer Location Encounter Start Date Encounter Closed Date Diagnosis/Indication Diagnosis SNOMED-CT Code Diagnosis ICD10 Code Diagnosis IMO Codes Diagnosis Note [id number] JI SANCHEZ, DO [facility] [address] [place] [address] 12/01/2024 13:45:04 12/01/2024 14:16:46 Moderate major depression 522311 F32.1 53422 09/23-Patie nt has had depressive symptoms for [...] point Irritable bowel syndrome characterized by constipation 103841937 K58.1 885005 08/23 still slow - rec mom-10/23- still slow- was been off mom-plans to take in more prunes using magnesia as needed12/24 - - Continue with a dietary strategy with prunes; use milk of magnesia as needed for relief. Essential hypertension 44538618 I10 Medication decision made based on pt's allergies and co-morbid conditions including: HTN, T2DM08/23-v alsartan 80, might need to decrease blood pressure medicine as weight drops09/23- same.10/23- BP variable- sometimes high. average last month high.-incr eased valsartan to 1609/25 - dc diovan-try Bystolic - Shift from valsartan to Bistolic for improved control, with blood pressure monitoring Seizure disorder 3499475 02 G40.909 seeing neuro now.11/17-n eurologist referred her to recently left the practice, she is stable, evaluation was unrevealin g, we will simply continue her medication for now05/26 - stable06/23 - documented seizure- on meds- seeing neuro08/23- on phentoyn and keppra - seeing Meño in [facility]- did EEG. n opal sleep test scheduled- then follow up-dont know results.- no more seizure no med changes09/30-planning to follow-up with neurologis t at [place]- Continue management , observe potential effects of medication changes Abnormal weight loss 267 [id number] R63.4 [id number] 08/23-charley rning, but felt to be multifacto [...] 2 carlos enrique betes mellitus without complication 466424140 E11.9 on januvia., aic 6.9 02/21, LDL 788/19- surendra labs today . tolerates januva well.11/22- aic 7.05/26-ch mally routine labs, microalbum in, no complicati ons that we know of08/23- losing weight-rec heck A1c might be able to stop Tobgedgs1d 6.39.25- losing weight -hold Januvia for now-May need to [facility] Health Concerns Section Related Observation LastModified by Organization Detai ls LastModified Time None Recorded Concern Status LastModified by Organization Details LastModified Time None Recorded Payers Encounter Date Sequence Insurance Name Policy Number Policy Ibrahim Covered Member ID Ibrahim Member ID Guarantor Name 12/01/2024 1 [place] Elizabeth Sykes Sánchez [id number] Elizabeth M Sánchez 12/01/2024 2 [employer] (MEDICARE SUPPLEMENT) Elizabeth Sánchez [id number] Elizabeth Sykes Sánchez Notes Date Note Type Note Provider Name and Address Organization Details Recorded Time 12/01/2024 text/html The patient is a 74-year-old female presenting with issues related to altered mental status, significant weight loss, and gastrointestinal disturbances primarily characterized by nausea and constipation. The patient recounts an overall decline in her general health state, feeling generally unwell, and experiences frustrations with her current medication management for chronic conditions such as diabetes and hypertension. She mentions that nausea is nearly constant, although episodic, and that her appetite is severely reduced, resulting in continued weight loss. The patient's hypertension management has been erratic with reports of fluctuating blood pressure readings unrelated to her subjective physical state. She notes chronic use of various medications, including Tylenol for headache relief and occasional use of milk of magnesia and prunes to aid in gastrointestinal management. The patient discusses previous efforts to control her diabetes with blood sugar monitoring, indicating a recent reading of 110 mg/dL without regular checks. Medical History: - Altered mental status - Moderate major depression - Irritable bowel syndrome with constipation - Essential hypertension - Seizure disorder - Abnormal weight loss - Type 2 diabetes mellitus Medications: - Valsartan, previously doubled for hypertension - Tylenol, taken as needed for headache - Aspirin, one a day for cardiovascular prevention Social History: - Reports engaging in irregular exercise with a mini bike for bowel regularity - Discontinuous blood sugar monitoring, influences nutritional health Diagnostic Results: - Labs: Random blood sugar reported at 110 mg/dL Documentation on this patient encounter was supported using voice-enabled Al technology. The patient consented to recording for the purpose of documenting the encounter. Provider reviewed content of the generated note prior to signature. JI CORONA DO [address], [place], [id number], [facility] 12/01/2024 17:08:09 OBGyn Episode No OBEpisode recorded.
--- OUTSIDE RECORDS SUMMARY | 2025-01-21 07:42 | XMS_ITS | Data Portability ---
Author Organization [place] - JUAN R Buchanan [place] [facility] Address [address] [facility] [address] [place] [address] Assessment Encounter Date Assessment Date Assessment LastModified by Organization Details LastModified Time 10/20/2024 10/20/2024 - 73 year old female with history of altered mental status presenting with altered mental status and elevated blood pressure. - Altered mental status potentially linked to medication previously managed with cessation of Zoloft; ongoing drowsiness noted. - Blood pressure management indicates variability with recurrent elevated readings; reviewing and adjusting current regimen is imperative. Arterial Stenosis: - Management to continue through atorvastatin therapy, reassess as necessary for symptom control. [email or web address] Not available 10/20/2024 14:42:18 12/01/2024 12/01/2024 - 74-year-old female with a [...] symptomatic experiences to potentially alleviate adverse effects. [email or web address] Not available 12/01/2024 17:06:09 12/15/2024 12/15/2024 - 74 year old female [...] medication efficiency. [email or web address] Not available 12/15/2024 17:03:36 01/12/2025 01/12/2025 - 74 year old female with history [...] manage ongoing symptoms with previous medication efficiency. - 74-year-old female with a history of anxiety and essential hypertension presenting with anxiety management concerns. - Persistent anxiety has necessitated daily use of Xanax, showing improvement yet requiring regular management. - Hypertension is controlled with Valsartan, with no recent medication adjustments indicated. [email or web address] Not available 01/12/2025 14:26:02 Plan of Treatment Reminders Order Date Submit Date Provider Last Modified By Organization Details Last Modified Time Details Appointments RECHE CK 2024 02:00P M DR CORONA Not available Not available Not available Lab CMP, serum or plasm a 2024 025 [facility], [address] [place] [address], [id number], 12/01/2024 19:33:07 vitam in B12 + folat e, serum or blood 2024 025 [facility], [address] [place] [address], [id number], 12/01/2024 19:25:24 CBC w/ auto diff 2024 025 [facility], [address] [place] [address], [id number], 12/01/2024 19:39:20 urina lysis , compl ete 2024 025 [facility], [address] [place] [address], [id number], 12/01/2024 19:22:49 TSH, serum , refle x free T4 2024 025 [facility], [address] [place] [address], [id number], 12/01/2024 19:23:15 CBC w/ auto diff 2024 025 [facility], [address] [place] [address], [id number], 09/18/2024 19:12:17 CMP, serum or plasm a 2024 025 [facility], [address] [place] [address], [id number], 09/18/2024 19:46:16 urina lysis , compl ete 2024 025 [facility], [address] [place] [address], [id number], 09/18/2024 19:22:52 cultu re, urine 2024 025 [facility], [address] [place] [address], [id number], 09/19/2024 10:22:37 Referral None recor ded. Procedures None recor ded. Surgeries None recor ded. Imaging None recor ded. Medication Orders panto prazo le 20 mg table t,del ayed relea se 2024 025 [facility], [address] [place] [address], [place], [address], 01/12/2025 14:24:09 Bysto lic 5 mg table t 2024 025 [facility], [facility] [place], [address], 01/12/2025 14:24:11 valsa rtan 40 mg table t 2024 025 [facility], [address] [place] [address], [id number], 01/12/2025 14:24:11 Xanax 0.25 mg table t 2024 [id number], [address] [place] [address], [id number], 01/12/2025 14:24:21 ondan setro n HCl 4 mg table t 2024 025 [facility], [address] [place] [address], [id number], 12/15/2024 14:49:04 Xanax 0.25 mg table t 2024 025 [id number], [address] [place] [address], [id number], 12/15/2024 14:53:55 panto prazo le 20 mg table t,del ayed relea se 2024 025 [facility], [address] [place] [address], [id number], 12/15/2024 14:49:11 Bysto lic 5 mg table t 2024 025 [facility], [address] [place] [address], [id number], 12/15/2024 14:49:04 valsa rtan 40 mg table t 2024 025 [facility], [address] [place] [address], [id number], 12/15/2024 14:49:04 Bysto lic 5 mg table t 2024 025 [facility], [address] [place] [address], [id number], 12/01/2024 14:15:04 valsa rtan 160 mg table t 2024 025 [facility], [facility] [place], [address], 12/01/2024 14:08:06 Patient TargetsNo targets recorded. Patient Instructions Encounter Date Encounter Id Patient Instructions Last Modified By Organization Details Last Modified Time 10/20/2024 [id number] - Continue home blood pressure monitoring at least three times daily. - Take aspirin and atorvastatin as prescribed. - Follow the dietary plan with prunes and use milk of magnesia when constipation occurs. - Increase Valsartan dose as instructed, 160 mg to be taken once in the morning. - Monitor for any severe fluctuations in blood pressure or recurring mental status changes. [email or web address] Not available 10/20/2024 14:42:21 12/01/2024 [id number] - Monitor your blood pressure at home [...] your appetite. [email or web address] Not available 12/01/2024 14:15:45 12/15/2024 [id number] - Restart previous medications as discussed, including Zofran and Valsartan. - Take introduced Xanax once a day as needed for anxiety and cramping. - Use [facility] for medication refills. - Monitor symptoms and contact healthcare provider if there's no improvement or worsening. [email or web address] Not available 12/15/2024 14:54:30 01/12/2025 [id number] - Continue takin g Valsartan as prescribed, once in the morning and once in the evening. - Take Xanax daily as you have been doing; if symptom-free, you may skip a dose occasionally. - Keep track of any changes in symptoms and notify if necessary. - Maintain your routine and follow up on scheduled appointments. - Monitor your weight and consult if it continues to increase. [email or web address] Not available 01/12/2025 14:26:04 Reason for Referral None Reported. Results Created Date Observation Date Name Description Value Unit Range Abnormal Flag Note LastModifiedBy Organization Detail LastModifiedTime 09/19/1909/18/2024 COMPL ETE BLOOD COUNT white blood cells 7.7 10*3/ uL 3.8-10 .8 normal Not Available [facility] [address] [place] [address], [id number], 09/18/2024 19:12:17 09/19/19 25 09/18/2024 COMPL ETE BLOOD COUNT red blood cells 4.38 10*6/ uL 3.80-5 .20 normal Not Available [facility] [address] [place] [address], [id number], 09/18/2024 19:12:17 09/19/19 25 09/18/2024 COMPL ETE BLOOD COUNT hemoglobin 14.2 g/dL 12.0-1 6.0 normal Not Available [facility] [address] [place] [address], [id number], 09/18/2024 19:12:17 09/19/19 25 09/18/2024 COMPL ETE BLOOD COUNT hematocrit 42.1 % 35.0-4 7.0 normal Not Available [facility] [address] [place] [address], [address], 09/18/2024 19:12:17 09/19/19 25 09/18/2024 COMPL ETE BLOOD COUNT MCV 96 fL 80-100 normal Not Available [facility] [address] [place] [address], [address], 09/18/2024 19:12:17 09/19/19 25 09/18/2024 COMPL ETE BLOOD COUNT MCH 32 pg 26-35 normal Not Available [facility] [address] [place] [address], [id number], 09/18/2024 19:12:17 09/19/19 25 09/18/2024 COMPL ETE BLOOD COUNT MCHC 34 g/dL 32-36 normal Not Available [facility] [address] [place] [address], [address], 09/18/2024 19:12:17 09/19/19 25 09/18/2024 COMPL ETE BLOOD COUNT RDW 12.9 % 11.0-1 5.0 normal Not Available [facility] [address] [place] [address], [address], 09/18/2024 19:12:17 09/19/19 25 09/18/2024 COMPL ETE BLOOD COUNT MPV 10.3 fL 6.2-10 .5 normal Not Available [facility] [address] [place] [address], [address], 09/18/2024 19:12:17 09/19/19 25 09/18/2024 COMPL ETE BLOOD COUNT platelet count 223 10*3/ uL 150-40 0 normal Not Available [facility] [address] [place] [address], [address], 09/18/2024 19:12:17 09/19/19 25 09/18/2024 COMPL ETE BLOOD COUNT neutrophil,a bsolute 5.5 10*3/ uL 1.6-8. 4 normal Not Available [facility] [address] [place] [address], [address], 09/18/2024 19:12:17 09/19/19 25 09/18/2024 COMPL ETE BLOOD COUNT lymphocyte,a bsolute 1.6 10*3/ uL 0.4-5. 1 normal Not Available [facility] [address] [place] [address], [address], 09/18/2024 19:12:17 09/19/19 25 09/18/2024 COMPL ETE BLOOD COUNT monocyte,abs olute 0.5 10*3/ uL 0.0-1. 2 normal Not Available [facility] [address] [place] [address], [address], 09/18/2024 19:12:17 09/19/19 25 09/18/2024 COMPL ETE BLOOD COUNT eosinophil,a bsolute 0.0 10*3/ uL 0.0-0. 8 normal Not Available [facility] [address] [place] [address], [address], 09/18/2024 19:12:17 09/19/19 25 09/18/2024 COMPL ETE BLOOD COUNT basophil,abs olute 0.0 10*3/ uL 0.0-0. 3 normal Not Available [facility] [address] [place] [address], [address], 09/18/2024 19:12:17 09/19/19 25 09/18/2024 COMPL ETE BLOOD COUNT % neutrophils 71.9 % 42.0-7 8.0 normal Not Available [facility] [address] [place] [address], [address], 09/18/2024 19:12:17 09/19/19 25 09/18/2024 COMPL ETE BLOOD COUNT % lymphocytes 21.5 % 11.0-4 7.0 normal Not Available [facility] [address] [place] [address], [address], 09/18/2024 19:12:17 09/19/19 25 09/18/2024 COMPL ETE BLOOD COUNT % monocytes 5.9 % 0.0-11 .0 normal Not Available [facility] [address] [place] [address], [address], 09/18/2024 19:12:17 09/19/19 25 09/18/2024 COMPL ETE BLOOD COUNT % eosinophils 0.2 % 0.0-7. 0 normal Not Available [facility] [address] [place] [address], [address], 09/18/2024 19:12:17 09/19/19 25 09/18/2024 COMPL ETE BLOOD COUNT % basophils 0.5 % 0.0-3. 0 normal Not Available [facility] [address] [place] [address], [address], 09/18/2024 19:12:17 09/19/19 25 09/18/2024 COMPL ETE BLOOD COUNT nucleated red cells 0.0 % 0.0-0. 9 normal Not Available [facility] [address] [place] [address], [address], 09/18/2024 19:12:17 09/19/19 25 09/18/2024 COMPL ETE BLOOD COUNT nucleated RBCs, absolute 0.00 10*3/ uL not estab. normal Not Available [facility] [address] [place] [address], [address], 09/18/2024 19:12:17 09/19/19 25 09/18/2024 URINA LYSIS color Yellow normal Not Available [facility] [address] [place] [address], [address], 09/18/2024 19:22:52 09/19/19 25 09/18/2024 URINA LYSIS appearance Clear normal Not Available [facility] [address] [place] [address], [address], 09/18/2024 19:22:52 09/19/19 25 09/18/2024 URINA LYSIS glucose Normal mg/dL normal normal Not Available [facility] [address] [place] [address], [address], 09/18/2024 19:22:52 09/19/19 25 09/18/2024 URINA LYSIS bilirubin Negati ve mg/dL negati ve normal Not Available [facility] [address] [place] [address], [address], 09/18/2024 19:22:52 09/19/19 25 09/18/2024 URINA LYSIS ketone Negati ve mg/dL negati ve normal Not Available [facility] [address] [place] [address], [address], 09/18/2024 19:22:52 09/19/19 25 09/18/2024 URINA LYSIS specific gravity 1.024 1.003- 1.035 normal Not Available [facility] [address] [place] [address], [address], 09/18/2024 19:22:52 09/19/19 25 09/18/2024 URINA LYSIS blood 10 /uL negati ve abnormal Not Available [facility] [address] [place] [address], [address], 09/18/2024 19:22:52 09/19/19 25 09/18/2024 URINA LYSIS pH 6 5.0 - 8.0 normal Not Available [facility] [address] [place] [address], [address], 09/18/2024 19:22:52 09/19/19 25 09/18/2024 URINA LYSIS protein 15 mg/dL negati ve abnormal Not Available [facility] [address] [place] [address], [address], 09/18/2024 19:22:52 09/19/19 25 09/18/2024 URINA LYSIS urobilinogen Normal mg/dL normal normal Not Available [facility] [address] [place] [address], [address], 09/18/2024 19:22:52 09/19/19 25 09/18/2024 URINA LYSIS nitrite Negati ve negati ve normal Not Available [facility] [address] [place] [address], [address], 09/18/2024 19:22:52 09/19/19 25 09/18/2024 URINA LYSIS leukocyte esterase Negati ve /uL negati ve normal Not Available [facility] [address] [place] [address], [address], 09/18/2024 19:22:52 09/19/19 25 09/18/2024 URINA LYSIS mucus, urine 2+ /lpf not establ ished normal Not Available [facility] [address] [place] [address], [address], 09/18/2024 19:22:52 09/19/19 25 09/18/2024 URINA LYSIS hyaline casts 5-10 0 - 2/lpf abnormal Not Available [facility] [address] [place] [address], [address], 09/18/2024 19:22:52 09/19/19 25 09/18/2024 URINA LYSIS WBC, urine 0-5 0-5/hp f normal Not Available [facility] [address] [place] [address], [address], 09/18/2024 19:22:52 09/19/19 25 09/18/2024 URINA LYSIS squamous epi. cells 0-5 0-5/hp f normal Not Available [facility] [address] [place] [address], [address], 09/18/2024 19:22:52 09/19/19 25 09/18/2024 URINA LYSIS bacteria Trace /hpf none seen abnormal Not Available [facility] [address] [place] [address], [address], 09/18/2024 19:22:52 09/19/19 25 09/18/2024 URINA LYSIS crystals 2+ negati ve abnormal Calci um Oxala te Not Available [facility] [address] [place] [address], [address], 09/18/2024 19:22:52 09/19/19 25 09/18/2024 COMP. METAB OLIC PANEL glucose 171 mg/dL 74-100 high Not Available [facility] [address] [place] [address], [address], 09/18/2024 19:46:16 09/19/19 25 09/18/2024 COMP. METAB OLIC PANEL blood urea nitrogen 8 mg/dL 6-20 normal Not Available [facility] [address] [place] [address], [address], 09/18/2024 19:46:16 09/19/19 25 09/18/2024 COMP. METAB OLIC PANEL creatinine 0.66 mg/dL 0.50-0 .95 normal Not Available [facility] [address] [place] [address], [address], 09/18/2024 19:46:16 09/19/19 25 09/18/2024 COMP. METAB OLIC PANEL BUN/creatini ne ratio 12 (calc ) 10-20 normal Not Available [facility] [address] [place] [address], [address], 09/18/2024 19:46:16 09/19/19 25 09/18/2024 COMP. METAB OLIC PANEL sodium 136 mmol/ L 136-14 5 normal Not Available [facility] [address] [place] [address], [address], 09/18/2024 19:46:16 09/19/19 25 09/18/2024 COMP. METAB OLIC PANEL potassium 3.7 mmol/ L 3.4-5. 0 normal Not Available [facility] [address] [place] [address], [address], 09/18/2024 19:46:16 09/19/19 25 09/18/2024 COMP. METAB OLIC PANEL chloride 97 mmol/ L 98-107 low Not Available [facility] [address] [place] [address], [address], 09/18/2024 19:46:16 09/19/19 25 09/18/2024 COMP. METAB OLIC PANEL carbon dioxide 22 mmol/ L 22-31 normal Not Available [facility] [address] [place] [address], [address], 09/18/2024 19:46:16 09/19/19 25 09/18/2024 COMP. METAB OLIC PANEL anion gap 17 (calc ) 7-25 normal Not Available [facility] [address] [place] [address], [address], 09/18/2024 19:46:16 09/19/19 25 09/18/2024 COMP. METAB OLIC PANEL calcium 10.0 mg/dL 8.6-10 .2 normal Not Available [facility] [address] [place] [address], [address], 09/18/2024 19:46:16 09/19/19 25 09/18/2024 COMP. METAB OLIC PANEL total protein 7.0 g/dL 6.4-8. 3 normal Not Available [facility] [address] [place] [address], [address], 09/18/2024 19:46:16 09/19/19 25 09/18/2024 COMP. METAB OLIC PANEL albumin 4.5 g/dL 3.5-5. 2 normal Not Available [facility] [address] [place] [address], [address], 09/18/2024 19:46:16 09/19/19 25 09/18/2024 COMP. METAB OLIC PANEL globulin 2.5 1.5-4. 5 normal Not Available [facility] [address] [place] [address], [address], 09/18/2024 19:46:16 09/19/19 25 09/18/2024 COMP. METAB OLIC PANEL albumin/glob ulin ratio 1.8 (calc ) 1.1-2. 5 normal Not Available [facility] [address] [place] [address], [address], 09/18/2024 19:46:16 09/19/19 25 09/18/2024 COMP. METAB OLIC PANEL bilirubin, total 0.3 mg/dL 0.1-1. 2 normal Not Available [facility] [address] [place] [address], [address], 09/18/2024 19:46:16 09/19/19 25 09/18/2024 COMP. METAB OLIC PANEL alkaline phosphatase 104 U/L 30-121 normal Not Available [facility] [address] [place], [address], 09/18/2024 19:46:16 09/19/19 25 09/18/2024 COMP. METAB OLIC PANEL AST 27 U/L 0-32 normal Not Available [facility] [address] [place], [address], 09/18/2024 19:46:16 09/19/19 25 09/18/2024 COMP. METAB OLIC PANEL ALT 28 U/L 0-33 normal Not Available [facility] [address] [place], [address], 09/18/2024 19:46:16 09/19/19 25 09/18/2024 COMP. METAB OLIC PANEL eGFR 93 >= 60 normal NOT E New calcu latio n for GFR (CKD- EPI 2020) is formu lated witho ut race adjus tment facto rs at the recom menda tion of the Yulia Lundberg y [facility] and Ampr[facility]ip shabazz Socie ty of Nephr ology . This calcu latio n has not been valid ated in pregn ant women . For pedia tric patie nts refer to https ://yolanda w.angelika good.o rg/pr ofess ional s/KDO QI/gf r_cal culat orPed Not Available [facility] [address] [place], [address], 09/18/2024 19:46:16 09/19/19 25 09/21/2024 URINE CULTU RE urine culture COLON Y COUNT : 10,00 0 - 100,0 00 CFU/M L Three or more isola anival; mixed uroge nital [place] . Not Available [facility] [address] [place], [address], 09/21/2024 10:52:01 12/02/19 25 12/01/2024 URINA LYSIS color Yellow normal Not Available [facility] [address] [place] [address], [address], 12/01/2024 19:22:49 12/02/19 25 12/01/2024 URINA LYSIS appearance Clear normal Not Available [facility] [address] [place] [address], [address], 12/01/2024 19:22:49 12/02/19 25 12/01/2024 URINA LYSIS glucose Normal mg/dL normal normal Not Available [facility] [address] [place] [address], [address], 12/01/2024 19:22:49 12/02/19 25 12/01/2024 URINA LYSIS bilirubin Negati ve mg/dL negati ve normal Not Available [facility] [address] [place] [address], [address], 12/01/2024 19:22:49 12/02/19 25 12/01/2024 URINA LYSIS ketone Negati ve mg/dL negati ve normal Not Available [facility] [address] [place] [address], [address], 12/01/2024 19:22:49 12/02/19 25 12/01/2024 URINA LYSIS specific gravity 1.018 1.003- 1.035 normal Not Available [facility] [address] [place] [address], [address], 12/01/2024 19:22:49 12/02/19 25 12/01/2024 URINA LYSIS blood Negati ve /uL negati ve normal Not Available [facility] [address] [place] [address], [address], 12/01/2024 19:22:49 12/02/19 25 12/01/2024 URINA LYSIS pH 7 5.0 - 8.0 normal Not Available [facility] [address] [place] [address], [address], 12/01/2024 19:22:49 12/02/19 25 12/01/2024 URINA LYSIS protein Negati ve mg/dL negati ve normal Not Available [facility] [address] [place] [address], [address], 12/01/2024 19:22:49 12/02/19 25 12/01/2024 URINA LYSIS urobilinogen Normal mg/dL normal normal Not Available [facility] [address] [place] [address], [address], 12/01/2024 19:22:49 12/02/19 25 12/01/2024 URINA LYSIS nitrite Negati ve negati ve normal Not Available [facility] [address] [place] [address], [address], 12/01/2024 19:22:49 12/02/19 25 12/01/2024 URINA LYSIS leukocyte esterase Negati ve /uL negati ve normal Not Available [facility] [address] [place] [address], [address], 12/01/2024 19:22:49 12/02/1912/01/2024 URINA LYSIS mucus, urine 2+ /lpf not establ ished normal Not Available [facility] [address] [place] [address], [address], 12/01/2024 19:22:49 12/02/19 25 12/01/2024 URINA LYSIS WBC, urine 0-5 0-5/hp f normal Not Available [facility] [address] [place] [address], [address], 12/01/2024 19:22:49 12/02/1912/01/2024 URINA LYSIS squamous epi. cells 0-5 0-5/hp f normal Not Available [facility] [address] [place] [address], [address], 12/01/2024 19:22:49 12/02/19 25 12/01/2024 URINA LYSIS bacteria Trace /hpf none seen abnormal Not Available [facility] [address] [place] [address], [address], 12/01/2024 19:22:49 12/02/19 25 12/01/2024 URINA LYSIS crystals negati ve abnormal 2+ Amorp hous 2+ Tripl e Phosp hate Not Available [facility] [address] [place] [address], [address], 12/01/2024 19:22:49 12/02/19 25 12/01/2024 TSH WITH REFLE X FT4 TSH with reflex FT4 0.872 u[IU] /mL 0.270- 4.200 normal Not Available [facility] [address] [place] [address], [address], 12/01/2024 19:23:15 12/02/19 25 12/01/2024 B12/F OLIC ACID PANEL folic acid >20.0 NG/mL 4.6-34 .8 normal Not Available [facility] [address] [place] [address], [address], 12/01/2024 19:25:24 12/02/19 25 12/01/2024 B12/F OLIC ACID PANEL vitamin B12 790 pg/mL 232-12 45 normal Not Available [facility] [address] [place] [address], [address], 12/01/2024 19:25:24 12/02/19 25 12/01/2024 COMP. METAB OLIC PANEL glucose 146 mg/dL 74-100 high Not Available [facility] [address] [place] [address], [address], 12/01/2024 19:33:07 12/02/19 25 12/01/2024 COMP. METAB OLIC PANEL blood urea nitrogen 5 mg/dL 6-20 low Not Available [facility] [address] [place] [address], [address], 12/01/2024 19:33:07 12/02/19 25 12/01/2024 COMP. METAB OLIC PANEL creatinine 0.59 mg/dL 0.50-0 .95 normal Not Available [facility] [address] [place] [address], [address], 12/01/2024 19:33:07 12/02/19 25 12/01/2024 COMP. METAB OLIC PANEL BUN/creatini ne ratio 8 (calc ) 10-20 low Not Available [facility] [address] [place] [address], [address], 12/01/2024 19:33:07 12/02/19 25 12/01/2024 COMP. METAB OLIC PANEL sodium 138 mmol/ L 136-14 5 normal Not Available [facility] [address] [place] [address], [address], 12/01/2024 19:33:07 12/02/19 25 12/01/2024 COMP. METAB OLIC PANEL potassium 4.1 mmol/ L 3.4-5. 0 normal Not Available [facility] [address] [place] [address], [address], 12/01/2024 19:33:07 12/02/19 25 12/01/2024 COMP. METAB OLIC PANEL chloride 100 mmol/ L 98-107 normal Not Available [facility] [address] [place] [address], [address], 12/01/2024 19:33:07 12/02/19 25 12/01/2024 COMP. METAB OLIC PANEL carbon dioxide 23 mmol/ L 22-31 normal Not Available [facility] [address] [place] [address], [address], 12/01/2024 19:33:07 12/02/19 25 12/01/2024 COMP. METAB OLIC PANEL anion gap 15 (calc ) 7-25 normal Not Available [facility] [address] [place] [address], [address], 12/01/2024 19:33:07 12/02/19 25 12/01/2024 COMP. METAB OLIC PANEL calcium 9.6 mg/dL 8.6-10 .2 normal Not Available [facility] [address] [place] [address], [address], 12/01/2024 19:33:07 12/02/19 25 12/01/2024 COMP. METAB OLIC PANEL total protein 6.7 g/dL 6.4-8. 3 normal Not Available [facility] [address] [place] [address], [address], 12/01/2024 19:33:07 12/02/19 25 12/01/2024 COMP. METAB OLIC PANEL albumin 4.1 g/dL 3.5-5. 2 normal Not Available [facility] [address] [place] [address], [address], 12/01/2024 19:33:07 12/02/19 25 12/01/2024 COMP. METAB OLIC PANEL globulin 2.6 1.5-4. 5 normal Not Available [facility] [address] [place] [address], [address], 12/01/2024 19:33:07 12/02/19 25 12/01/2024 COMP. METAB OLIC PANEL albumin/glob ulin ratio 1.6 (calc ) 1.1-2. 5 normal Not Available [facility] [address] [place] [address], [address], 12/01/2024 19:33:07 12/02/19 25 12/01/2024 COMP. METAB OLIC PANEL bilirubin, total 0.3 mg/dL 0.1-1. 0 normal NOTE: New refer ence range . Not Available [facility] [address] [place] [address], [address], 12/01/2024 19:33:07 12/02/19 25 12/01/2024 COMP. METAB OLIC PANEL alkaline phosphatase 88 U/L 30-121 normal Not Available [facility] [address] [place], [address], 12/01/2024 19:33:07 12/02/19 25 12/01/2024 COMP. METAB OLIC PANEL AST 26 U/L 0-32 normal Not Available [facility] [address] [place] [address], [address], 12/01/2024 19:33:07 12/02/19 25 12/01/2024 COMP. METAB OLIC PANEL ALT 25 U/L 0-33 normal Not Available [facility] [address] [place], [address], 12/01/2024 19:33:07 12/02/1912/01/2024 COMP. METAB OLIC PANEL eGFR 95 >= 60 normal NOT E New calcu latio n for GFR (CKD- EPI 2020) is formu lated witho ut race adjus tment facto rs at the recom menda tion of the [facility] [employer] [employer] ation and Ampradip Marcume ty of Nephr ology . This calcu latio n has not been valid ated in pregn ant women . For pedia gaetano hawkins nts refer to https :[email or web address] [email or web address] swanson/pr myron egan s/KDO QI/gf r_cal culat orPed Not Available [facility] [address] [place] [address], [address], 12/01/2024 19:33:07 12/02/1912/01/2024 COMPL ETE BLOOD COUNT white blood cells 8.8 10*3/ uL 3.8-10 .8 normal Not Available [facility] [address] [place] [address], [address], 12/01/2024 19:39:20 12/02/19 25 12/01/2024 COMPL ETE BLOOD COUNT red blood cells 4.26 10*6/ uL 3.80-5 .20 normal Not Available [facility] [address] [place] [address], [address], 12/01/2024 19:39:20 12/02/19 25 12/01/2024 COMPL ETE BLOOD COUNT hemoglobin 14.2 g/dL 12.0-1 6.0 normal Not Available [facility] [address] [place] [address], [address], 12/01/2024 19:39:20 12/02/19 25 12/01/2024 COMPL ETE BLOOD COUNT hematocrit 41.4 % 35.0-4 7.0 normal Not Available [facility] [address] [place] [address], [address], 12/01/2024 19:39:20 12/02/19 25 12/01/2024 COMPL ETE BLOOD COUNT MCV 97 fL 80-100 normal Not Available [facility] [address] [place] [address], [address], 12/01/2024 19:39:20 12/02/1912/01/2024 COMPL ETE BLOOD COUNT MCH 33 pg 26-35 normal Not Available [facility] [address] [place] [address], [address], 12/01/2024 19:39:20 12/02/19 25 12/01/2024 COMPL ETE BLOOD COUNT MCHC 34 g/dL 32-36 normal Not Available [facility] [address] [place] [address], [address], 12/01/2024 19:39:20 12/02/19 25 12/01/2024 COMPL ETE BLOOD COUNT RDW 13.4 % 11.0-1 5.0 normal Not Available [facility] [address] [place] [address], [address], 12/01/2024 19:39:20 12/02/19 25 12/01/2024 COMPL ETE BLOOD COUNT MPV 10.6 fL 6.2-10 .5 high Not Available [facility] [address] [place] [address], [address], 12/01/2024 19:39:20 12/02/1912/01/2024 COMPL ETE BLOOD COUNT platelet count 256 10*3/ uL 150-40 0 normal Not Available [facility] [address] [place] [address], [address], 12/01/2024 19:39:20 12/02/1912/01/2024 COMPL ETE BLOOD COUNT neutrophil,a bsolute 6.0 10*3/ uL 1.6-8. 4 normal Not Available [facility] [address] [place] [address], [address], 12/01/2024 19:39:20 12/02/1912/01/2024 COMPL ETE BLOOD COUNT lymphocyte,a bsolute 2.1 10*3/ uL 0.4-5. 1 normal Not Available [facility] [address] [place] [address], [address], 12/01/2024 19:39:20 12/02/19 25 12/01/2024 COMPL ETE BLOOD COUNT monocyte,abs olute 0.5 10*3/ uL 0.0-1. 2 normal Not Available [facility] [address] [place] [address], [address], 12/01/2024 19:39:20 12/02/1912/01/2024 COMPL ETE BLOOD COUNT eosinophil,a bsolute 0.1 10*3/ uL 0.0-0. 8 normal Not Available [facility] [address] [place] [address], [address], 12/01/2024 19:39:20 12/02/19 25 12/01/2024 COMPL ETE BLOOD COUNT basophil,abs olute 0.0 10*3/ uL 0.0-0. 3 normal Not Available [facility] [address] [place] [address], [address], 12/01/2024 19:39:20 12/02/19 25 12/01/2024 COMPL ETE BLOOD COUNT % neutrophils 68.8 % 42.0-7 8.0 normal Not Available [facility] [address] [place] [address], [address], 12/01/2024 19:39:20 12/02/19 25 12/01/2024 COMPL ETE BLOOD COUNT % lymphocytes 24.3 % 11.0-4 7.0 normal Not Available [facility] [address] [place] [address], [address], 12/01/2024 19:39:20 12/02/1912/01/2024 COMPL ETE BLOOD COUNT % monocytes 5.3 % 0.0-11 .0 normal Not Available [facility] [address] [place] [address], [address], 12/01/2024 19:39:20 12/02/1912/01/2024 COMPL ETE BLOOD COUNT % eosinophils 1.1 % 0.0-7. 0 normal Not Available [facility] [address] [place] [address], [address], 12/01/2024 19:39:20 12/02/1912/01/2024 COMPL ETE BLOOD COUNT % basophils 0.5 % 0.0-3. 0 normal Not Available [facility] [address] [place] [address], [address], 12/01/2024 19:39:20 12/02/1912/01/2024 COMPL ETE BLOOD COUNT nucleated red cells 0.0 % 0.0-0. 9 normal Not Available [facility] [address] [place] [address], [address], 12/01/2024 19:39:20 12/02/1912/01/2024 COMPL ETE BLOOD COUNT nucleated RBCs, absolute 0.00 10*3/ uL not estab. normal Not Available [facility] [address] [place] [address], [address], 12/01/2024 19:39:20 12/02/1912/02/2024 GLYCO HEMOG LOBIN A1C glyco HGB A1C 6.2 % 0.0-5. 6 high Not Available [facility] [address] [place] [address], [address], 12/02/2024 11:13:54 12/02/1912/02/2024 GLYCO HEMOG LOBIN A1C estimated avg. glucose 131 mg/dL _(gloria c) normal A1c value s betwe en 5.7% to 6.4% indic ate predi abete s. Resul ts 6.5% or great er is diagn ostic of diabe anival. Ameri can Diabe anival Assoc iatio n (diab etes. org) Not Available [facility] [address] [place] [address], [address], 12/02/2024 11:13:54 Result Notes None recorded. Problems Name Problem SNOMED Code Status Onset Date Resolution Date Notes Provider Name and Address Organization Details Recorded Time Obesity 772460700 Active Not Available [employer] 4 14:08:00 Morbid obesity 891199459 Active Not Available [employer] 5 14:16:35 Renal disorder due to type 2 diabetes mellitus 788166940 Active Not Available [employer] 5 14:16:57 Urinary tract infectiou s disease 73583451 Active 2015 From Automated [employer];Provi paulina: Angel Choi; atus: Active Not Available [facility] 6 08:01:39 Type 2 diabetes mellitus without complicat ion 678074401 Active 2022 JI MOSQUERA LL, DO [address] [place] [address], [address] , [facility] 3 17:04:52 Essential hypertens ion 21680166 Active 2022 JI SANCHEZ, DO [address] [place] [address], [address] , [facility] 3 17:04:53 Mixed hyperlipi demia 498782833 Active 2022 JI DEMETRI LL, DO [address] [place], [place], [address] [place] [address] , [facility] 3 17:04:54 Seizure disorder 071416109 Active 2022 JI DEMETRI LL, DO [address] [place], [place], [address] [place] [address] , [facility] 3 17:04:56 Cerebrova scular disease 60429954 Active 2024 JI DEMETRI LL, DO [address] [place], [place], [address] [place] [address] , [facility] 5 14:17:48 Irritable bowel syndrome character ized by constipat ion 721713231 Active 20[place] [address] [place] [address], [address] [place] [address] , [facility] 5 14:17:51 Moderate major depressio n 432568 Active 2024 JI DEMETRI , DO [address] [place], [place], [address] [place] [address] , [facility] 5 11:22:08 Problem Notes None recorded. Medical Equipment None Reported. Allergies Allergen ID Allergen Name Allergen Category Reaction Reaction Severity Criticality Documentation Date Start Date Code Code System Note Provider Name and Address Organization Details Recorded Time 20451202 Tequin medicatio n Not available Not available Not available 02/23/20162005 05696 4 RxNorm Comme nt: Creat ed By: Saira morton Date: 01/15 8:27: 00 AM; Not Available [facility] 12:27:44 509550 Flagyl medicatio n Not available Not available Not available 02/23/20162015 6 RxNorm Comme nt: Creat ed By: John meaodws Date: 2015 12:26 :53 PM; Not Available [facility] 6 12:27:44 678443 aspirin medicatio n Not available Not available Not available 02/23/20162005 1191 RxNorm Comme nt: Creat ed By: Saira Halea selene Date: 01/15 8:27: 28 AM; Not Available [facility] 6 12:37:17 024610 Substance with sulfonami de structure and antibacte rial mechanism of action (substanc e) medicatio n Not available Not available Not available 02/24/20162005 68224 8003 SNOMED Comme nt: Creat ed By: Saira morton Date: 01/15 8:24: 43 AM; Not Available [facility] 6 03:13:54 422660 pertussis vaccine medicatio n Not available Not available Not available 02/24/20162005 8080 RxNorm Comme nt: Creat ed By: Saira ZendejasCrea selene Date: 01/15 8:27: 39 AM; Not Available [facility] 6 03:13:54 982925 codeine medicatio n Not available Not available Not available 02/24/20162015 2670 RxNorm Comme nt: Creat ed By: John meadows Date: 2015 12:27 :13 PM; Not Available [facility] 6 03:13:54 672387 tetracycl ine hydrochlo ride medicatio n Not available Not available Not available 02/24/20162005 96619 6 RxNorm Comme nt: Creat ed By: Saira Halea selene Date: 01/15 8:26: 48 AM; Not Available [facility] 6 10:28:13 Medications Name Sig Start [...] Astepro 137 mcg (0.1 %) nasal spray Frederic 2 sprays twice a day by intranas [...] 137 mcg-fluti casone 50 mcg/spray nasal spray Frederic 1 spray twice a day by intranas [...] blood by Pulse oximetry Heart rate Systolic And Diastolic Provider Name and Address Organization Details Last Updated DateTime 5 149.86 cm 30.7 kg/m2 54170.0 4 g 95 % 95 % 91 /min 160/72 mm[Hg] Jorge L MCNAMARA [facility] 5 10:42:34 Date Recorded Body height Body mass index (BMI) Body weight Heart rate Oxygen saturation Oxygen saturation in Arterial blood by Pulse oximetry Systolic And Diastolic Provider Name and Address Organization Details Last Updated DateTime 5 149.86 cm 30 kg/m2 90232.7 7 g 80 /min 96 % 96 % 152/68 mm[Hg] [facility] 5 14:18:31 Date Recorded Body height Body mass index (BMI) Body weight Heart rate Oxygen saturation Oxygen saturation in Arterial blood by Pulse oximetry Body temperature Systolic And Diastolic Provider Name and Address Organization Details Last Updated DateTime 5 149.86 cm 28.5 kg/m2 79416.9 2 g 84 /min 97 % 97 % 97.8 [degF] 154/62 mm[Hg] [facility] 5 13:54:50 Date Recorded Body height Body mass index (BMI) Body weight Heart rate Oxygen saturation Oxygen saturation in Arterial blood by Pulse oximetry Body temperature Systolic And Diastolic Provider Name and Address Organization Details Last Updated DateTime 149.86 cm 27.9 kg/m2 73831.1 5 g 73 /min 97 % 97 % 96.6 [degF] 150/66 mm[Hg] [facility] 5 14:25:54 Date Recorded Body height Body mass index (BMI) Body weight Heart rate Oxygen saturation Oxygen saturation in Arterial blood by Pulse oximetry Body temperature Systolic And Diastolic Provider Name and Address Organization Details Last Updated DateTime 5 149.86 cm 28.5 kg/m2 60410.9 2 g 70 /min 97 % 97 % 97.8 [degF] 130/65 mm[Hg] [facility] 14:04:34 Social History Question Answer Notes LastModified by [email or web address] SL Details LastModified Time Tobacco Smoking Status Never Smoker Snehal Winklerley [facility] 02/13/2023 14:17:59 What Was The Date Of Your Most Recent Tobacco Screening? 11/18/2023 [email or web address] Information not available 11/18/2023 Has Tobacco Cessation Counseling Been Provided? No Information not available 02/13/2023 Sex: Unknown Functional Status Question Answer Note LastModified by [email or web address] SL Details LastModified Time Do you use any [...] high-dose, quadrivalent, PF 01/05/2022 completed Marian Guzman [facility] 03/26/2024 14:45:01 Influenza, high-dose, quadrivalent, PF 01/22/2023 completed Marian Guzman [facility] 03/26/2024 14:45:01 COVID-19, mRNA, LNP-S, PF, 30 mcg/0.3 mL dose 05/07/2020 completed Marian Guzman [facility] 03/26/2024 14:45:01 COVID-19, mRNA, LNP-S, PF, 30 mcg/0.3 mL dose 05/28/2020 completed Marian Guzman [facility] 03/26/2024 14:45:01 COVID-19, mRNA, LNP-S, PF, 30 mcg/0.3 mL dose 12/26/2020 completed Marian Guzman [facility] 03/26/2024 14:45:01 COVID-19, mRNA, LNP-S, PF, 30 mcg/0.3 mL dose, jacob-sucrose 08/18/2021 completed Marian Guzman [facility] 03/26/2024 14:45:01 COVID-19, mRNA, LNP-S, bivalent, PF, 30 mcg/0.3 mL dose 01/05/2022 completed Marian Guzman [facility] 03/26/2024 14:45:01 COVID-19, mRNA, LNP-S, PF, jacob-sucrose, 30 mcg/0.3 mL 01/22/2023 completed Marian Guzman [facility] 03/26/2024 14:45:01 RSV, bivalent, protein subunit RSVpreF, diluent reconstituted, 0.5 mL, PF 03/06/2023 completed Marian Guzman [facility] 03/26/2024 14:54:50 COVID-19, mRNA, LNP-S, PF, 50 mcg/0.5 mL 01/29/2024 completed Not Available [facility] 13:46:17 Influenza, high-dose, trivalent, PF 01/27/2024 completed Snehal Sawyer [facility] 01/27/2024 14:45:43 Influenza, high-dose, trivalent, PF 12/15/2024 completed Bambi Silva [facility] 12/16/2024 08:35:27 RSV, recombinant, protein subunit RSVpreF, adjuvant reconstituted, 0.5 mL, PF 12/15/2024 completed Bambi Silva [facility] 12/16/2024 08:35:27 Past Encounters Encounter ID Performer Location Encounter Start Date Encounter Closed Date Diagnosis/Indication Diagnosis SNOMED-CT Code Diagnosis ICD10 Code Diagnosis IMO Codes Diagnosis Note [id number] [facility] [address] 07/02/2016 21:23:31 07/02/2016 21:23:31 [id number] JI MOSQUERA , DO [facility] [place] [id number] [facility] [place] [address] 02/13/2023 14:00:11 02/13/2023 14:34:19 Seizure disorder 367196725 G40.909 on phenyoin tid- somewehre went to [...] 2 carlos enrique betes mellitus without complication 792954913 E11.9 on januvia., We will check A1c chemistry today, little concern her blood glucose could be making her feel poorly as well Essential hypertension 50048937 I10 on arb- BP acceptable Mixed hyperlipidemia 267 279203 E78.2 Recheck to theon statin. LDL goal less than 100 80 [id number] JI SANCHEZ, DO PRIMARY [facility]ARE [address] [place] [address] 05/20/2023 13:48:43 05/20/2023 14:33:05 Adult health examination 683062226 Z00.00 Up-to-date on routine health maintenanc e Essential hypertension 31964248 I10 on arb- BP acceptable Hyperlipidemia 07110872 E78.5 On statin, tolerating well Seizure disorder 6823510 02 G40.909 seeing neuro now. Gastroesop hageal reflux disease without esophagitis 863398572 K21.9 Symptoms reasonably well-contr olled on PPI, antinausea medication as needed Type 2 carlos enrique betes mellitus without complication 592500036 E11.9 on januvia., aic 6.9 02/21, LDL 78 [id number] JI SANCHEZ, DO [facility] [place] [address] [facility] [place] [address] 11/18/2023 13:40:31 11/18/2023 14:23:00 Obesity 246483529 E66.01 Weight has been pretty stable, no drastic changes, discussed dietary changes, physical activity Essential hypertension 05100909 I10 on arb-blood pressure doing well. Check electrolyt es kidney function Hyperlipidemia 58863486 E78.5 On statin, tolerating wellGoal LDL less than 70, was 78 2022 Seizure disorder 1191260 02 G40.909 seeing neuro now.11/17-n eurologist referred her to recently left the practice, she is stable, evaluation was unrevealin g, we will simply continue her medication for now Gastroesop hageal reflux disease without esophagitis 497916627 K21.9 Symptoms reasonably well-contr olled on PPI, antinausea medication as needed Type 2 carlos enrique betes mellitus without complication 933524213 E11.9 on januvia., aic 6.9 11, LDL 788/19- surendra labs today . tolerates januva well. [id number] JI SANCHEZ, DO [facility] [address] [place] [address] 01/27/2024 14:24:53 01/28/2024 04:16:26 Active immunization 27512708 Z23 [id number] MOLLY WU PA-C [facility] [address] [place] [address] 03/26/2024 14:41:05 03/26/2024 15:36:43 Left lower quadrant pain 890517756 R10.32 CT of the abd pelvis ordered today.Pt to be notified of results when received.S trict ER precaution s given to pt at the time of apt. PT encouraged to cont bowel rest, BRAT diet, and hydration. Diarrhea 70770468 R19.7 History of cholecystectomy 638688555 Z90.49 Essential hypertension 16717280 I10 Medication decision made based on pt's allergies and co-morbid conditions including: HTN, T2DM Type 2 carlos enrique betes mellitus without complication 279991005 E11.9 Seizure disorder 5304727 02 G40.909 [id number] JI MOSQUERA LL, DO PRIMARY [facility]ARE [address] [place] [address] 05/22/2024 13:53:07 05/22/2024 15:04:22 Essential hypertension 99364425 I10 Medication decision made based on pt's allergies and co-morbid conditions including: HTN, T2DM Hyperlipidemia 90454937 E78.5 On statin, tolerating wellGoal LDL less than 70, was 78 - LDL 1012-on statin tolerating well check lipids today Type 2 carlos enrique betes mellitus without complication 572191139 E11.9 on januvia., aic 6.9 02/21, LDL 788/19- surendra labs today . tolerates januva well.11/22- aic 7.05/26-ch mally routine labs, microalbum in, no complicati ons that we know of Gastroesop hageal reflux disease without esophagitis 483729316 K21.9 Symptoms reasonably well-contr olled on PPI, antinausea medication as needed05/26 - symptoms ok. EGD ok Seizure disorder 8226534 02 G40.909 seeing neuro now.11/17-n eurologist referred her to recently left the practice, she is stable, evaluation was unrevealin g, we will simply continue her medication for now05/26 - stable Nausea and vomiting 1692 1999 R11.2 Obesity 478123166 E66.01 Weight has been pretty stable, no drastic changes, discussed dietary changes, physical activity Adult [facility] th examination 903803138 Z00.00 Up-to-date on routine health maintenanc e Screening for malignant neoplasm of colon 226128295 Z12.11 05/26- normal Pain in pelvis 05523741 R10.2 pain better after bowel prep. CT ok. no recent care asst. Forgetful 88962136 R41.3 Patient has become a little bit more forgetful, has noticed a few things, she has had some stressors with the loss of her mother, did not do great on the Mini-Menta l status examinatio n we will reevaluate in a few weeks [id number] JI SANCHEZ, DO [facility] [address] [facility] [place] [address] 06/16/2024 14:20:48 06/16/2024 15:41:36 Seizure disorder 356937018 G40.909 seeing neuro now.n eurologist referred her to recently left the practice, she is stable, evaluation was unrevealin g, we will simply continue her medication for now05/26 - stable06/23 - documented seizure- on meds- seeing neuro Pruritic rash 31315227 L 28.2 Suspect fungal, nystatin powder and cream [id number] JI SANCHEZ, DO [facility] [address] [facility] [place] [address] 07/31/2024 14:01:00 07/31/2024 15:45:25 Pruritic rash 23146426 L28.2 Suspect fungal, nystatin powder and cream08/23- seems better. no further powder Seizure disorder 7629824 02 G40.909 seeing neuro now.11/17-n eurologist referred her to recently left the practice, she is stable, evaluation was unrevealin g, we will simply continue her medication for now05/26 - stable06/23 - documented seizure- on meds- seeing [place] neuro08/23- on phentoyn and keppra - seeing Me[facility] in [facility]- did EEG. n house sleep test scheduled- then follow up-dont know results. Abnormal weight loss 267 034202 R63.4 [id number] 08/23-charley rning, but felt to be multifacto rial, recent EGD was normal, recheck labs today Essential hypertension 27917409 I10 Medication decision made based on pt's allergies and co-morbid conditions including: HTN, T2DM08/23-v alsartan 80, might need to decrease blood pressure medicine as weight drops Hyperlipidemia [id number] E78.5 On statin, tolerating wellGoal LDL less than 70, was 78 - LDL 10105/26-on statin tolerating well check lipids today08/23- recent escalation of high intensity statin. Seems to be tolerating okay doubt her GI effects are from that Type 2 carlos enrique betes mellitus without complication [id number] E11.9 on januvia., aic 6.9 02/21, LDL 788/19- surendra labs today . tolerates januva well.11/22- aic 7.02-ch mally routine labs, microalbum in, no complicati ons that we know of08/23- losing weight-rec heck A1c might be able to stop Januvia Gastroesop hageal reflux disease without esophagitis [id number] K21.9 Symptoms reasonably well-contr olled on PPI, antinausea medication as needed05/26 - symptoms ok. EGD ok08/23-elias rologist was concerned about some of her nausea meds recommende d to try Zofran continue PPI. Nausea and vomiting 1692 1999 R11.2 Forgetful [id number] R41.3 Patient has become a little bit [...] related Irritable bowel syndrome characterized by constipation 205055019 K58.1 161261 08/23 still slow - rec mom- Cerebrovas cular disease 38716463 I67.9 88178 08/23- MCA has [employer]IST intercrani al stenosis- on asa and hig dose statin [id number] JI MOSQUERA LL, DO [facility] [address] [place] [address] 09/08/2024 13:15:15 09/08/2024 14:26:01 Seizure disorder [id number] G40.909 seeing neuro now.11/17-n eurologist referred her to recently left the practice, she is stable, evaluation was unrevealin g, we will simply continue her medication for now05/26 - stable06/23 - documented seizure- on meds- seeing [place] [facility]08/23- on phentoyn and keppra - seeing Meño in [facility]- did EEG. n clifford sleep test scheduled- then follow up-dont know results.- no more seizure no med changes Abnormal weight loss 267 735881 R63.4 690662 08/23-charley rning, but felt to be multifacto rial, recent EGD was normal, recheck labs today09/23- up 2 lbs. stable Essential hypertension 79781250 I10 Medication decision made based on pt's allergies and co-morbid conditions including: HTN, T2DM08/23-v alsartan 80, might need to decrease blood pressure medicine as weight drops09/23- same. Hyperlipidemia 83627708 E78.5 On statin, tolerating wellGoal LDL less than 70, was 78 - LDL 10105/26-on statin tolerating well check lipids today08/23- recent escalation of high intensity statin. Seems to be tolerating okay doubt her GI effects are from that Gastroesop hageal reflux disease without esophagitis 617684912 K21.9 Symptoms reasonably well-contr olled on PPI, antinausea medication as needed05/26 - symptoms ok. EGD ok08/23-elias rologist was concerned about some of her nausea meds recommende d to try Zofran continue PPI.09/23-d oing okay on PPI and Zofran Forgetful [id number] R41.3 Patient has become a little bit more forgetful, has noticed a few things, she has had some stressors with the loss of her mother, did not do great on the Mini-Menta l status examinatio n we will reevaluate in a few weeks08/23- feels better. feels this might be getting a little bit better, could be situationa l medication related08/31 5-forgetfu lness and memory seem to be improving Irritable bowel syndrome characterized by constipation 617308724 K58.1 381769 08/23 still slow - rec mom- Cerebrovas cular disease 69657430 I67.9 34949 08/23- MCA has [employer] STRATEGIST intercrani al stenosis- on asa and hig dose statin Morbid obesity 304817251 E66.01 09/23- BMI 31- with dm htn. Renal diso rder due to type 2 diabetes mellitus 475749798 E11.21 on januvia., aic 6.9 02/21, LDL 788/19- surendra labs today . tolerates januva well.11/22- aic 7.05/26-ch mally routine labs, microalbum in, no complicati ons that we know of08/23- losing weight-rec heck A1c might be able to stop Januvia-ai c 6.3-09/23- DM with +microalbu min.- on melanie. statin.- Continue Januvia,, MELANIE inhibitor, statin Moderate m ajor depression 222232 F32.1 50161 09/23-Patie nt has had depressive symptoms for [...] low-dose Zoloft, no SI. Follow-up 6 weeks [id number] JI MOSQUERA LL, DO [facility] [address] [place] [address] 09/18/2024 10:15:55 09/18/2024 11:28:58 Altered mental status [id number] R41.82 [id number] 09/23-- Unknown etiology, most likely is the low-dose Zoloft. No other obvious cause of her symptoms. We will check routine labs urinalysis just to make sure. DC Zoloft Moderate m ajor depression 901504 F32.1 31984 09/23-Ricci higgins has had depressive symptoms for several years [...] to 1.2 pill- basically altered - dc meds [id number] JI MOSQUERA LL, DO [facility] [address] [facility] [address] [place] [address] 10/20/2024 14:12:04 10/20/2024 14:44:03 Altered mental status 073540241 R41.82 [id number] 09/23-- Unknown etiology, most likely is the low-dose Zoloft. No other obvious cause of her symptoms. We will check routine labs urinalysis just to make sure. DC Zoloft10/23 - seems to improved off zoloft Moderate m ajor depression 726266 F32.1 70117 09/23-Ricci higgins has had depressive symptoms for several years [...] hesitant to add medicine at this point Morbid obesity 879751161 E66.01 10/23- watching.b mi 30 with dm . HTN.actual ly losing weight Irritable bowel syndrome characterized by constipation 416065492 K58.1 409690 08/23 still slow - rec mom-10/23- still slow- was been off mom-plans to take in more prunes using magnesia as needed - Continue with a dietary strategy with prunes; use milk of magnesia as needed for relief. Essential hypertension 57379787 I10 Medication decision made based on pt's allergies and co-morbid conditions including: HTN, T2DM08/23-v alsartan 80, might need to decrease blood pressure medicine as weight drops09/23- same.10/23- BP variable- sometimes high. average last month high.-incr eased valsartan to 160- Increase in Valsartan from 80 mg to 160 mg intended to achieve better blood pressure regulation . - Patient should maintain home monitoring to ensure detailed tracking of fluctuatio ns. Seizure disorder 7752698 02 G40.909 seeing neuro now.11/17-n eurologist referred her to recently left the practice, she is stable, evaluation was unrevealin g, we will simply continue her medication for now05/26 - stable06/23 - documented seizure- on meds- seeing neuro08/23- on phentoyn and keppra - seeing Meoñ in [facility]- did EEG. n clifford sleep test scheduled- then follow up-dont know results.- no more seizure no med changes09/30 5-planning to follow-up with neurologis t at [place] [id number] JI MOSQUERA LL, DO [facility] [address] [place] [address] 12/01/2024 13:45:04 12/01/2024 14:16:46 Moderate major depression 037035 F32.1 18470 09/23-Patie nt has had depressive symptoms for [...] point Irritable bowel syndrome characterized by constipation 962691946 K58.1 951237 08/23 still slow - rec mom-10/23- still slow- was been off mom-plans to take in more prunes using magnesia as needed12/24 - - Continue with a dietary strategy with prunes; use milk of magnesia as needed for relief. Essential hypertension 22708951 I10 Medication decision made based on pt's allergies and co-morbid conditions including: HTN, T2DM08/23-v alsartan 80, might need to decrease blood pressure medicine as weight drops09/23- same.10/23- BP variable- sometimes high. average last month high.-incr eased valsartan to 1609/ - dc diovan-try Bystolic - Shift from valsartan to Bistolic for improved control, with blood pressure monitoring Seizure disorder 5068460 02 G40.909 seeing neuro now.11/17-n eurologist referred her to recently left the practice, she is stable, evaluation was unrevealin g, we will simply continue her medication for now05/26 - stable06/23 - documented seizure- on meds- seeing neuro08/23- on phentoyn and keppra - seeing Meño in [facility]- did EEG. n clifford sleep test scheduled- then follow up-dont know results.- no more seizure no med changes09/30-planning to follow-up with neurologis t at [place]- Continue management , observe potential effects of medication changes Abnormal weight loss 267 668184 R63.4 318240 08/23-charley rning, but felt to be multifacto [...] 2 carlos enrique betes mellitus without complication 170965083 E11.9 on januvia., aic 6.9 02/21, LDL 788/19- surendra labs today . tolerates januva well.11/22- aic 7.05/26-ch mally routine labs, microalbum in, no complicati ons that we know of08/23- losing weight-rec heck A1c might be able to stop [id number] 6..25- losing weight -hold Januvia for now-May need to liberalize diet some [id number] JI MOSQUERA LL, DO [facility] [address] [place] [address] 12/15/2024 14:00:13 12/15/2024 15:12:01 Moderate major depression 578942 F32.1 68568 09/23-Patie nt has had depressive symptoms for [...] change Irritable bowel syndrome characterized by constipation 517412002 K58.1 633928 08/23 still slow - rec mom-10/23- still slow- was been off mom-plans to take in more prunes using magnesia as needed12/24 -no change, despite changes in medical regimen - Continue with a dietary strategy with prunes; use milk of magnesia as needed for relief. Essential hypertension 24274041 I10 Medication decision made based on pt's allergies and co-morbid conditions including: HTN, T2DM08/23-v alsartan 80, might need to decrease blood pressure medicine as weight drops09/23- same.10/23- BP variable- sometimes high. average last month high.-incr eased valsartan to 1609/ - dc diovan-try Bystolic- BP back high- no imorovment in ill effects- restart valsartan lower dose. Seizure disorder 6304079 02 G40.909 seeing neuro now.11/17-n eurologist referred her to recently left the practice, she is stable, evaluation was unrevealin g, we will simply continue her medication for now05/26 - stable06/23 - documented seizure- on meds- seeing [place]08/23- on phentoyn and keppra - seeing Meño in [facility]- did EEG. n clifford sleep test scheduled- then follow up-dont know results.- no more seizure no med changes09/30-planning to follow-up with neurologsymone frank at [place]- Continue management , observe potential effects of medication changes Abnormal weight loss 267 881625 R63.4 250538 08/23-charley rning, but felt to be multifacto [...] 2 carlos enrique betes mellitus without complication 366789394 E11.9 on januvia., aic 6.9 02/21, LDL 788/19- surendra labs today . tolerates januva well.11/22- aic 7.05/26-ch mally routine labs, microalbum in, no complicati ons that we know of08/23- losing weight-rec heck A1c might be able to stop [id number] 6.39.25- losing weight -hold Januvia for now-May need to liberalize diet some12/24- still losing weight - continue to hld januvia Nausea and vomiting 1693 1999 R11.2 12/24-persi stent nausea abdominal discomfort , has had multiple evaluation s in the past, recommend low-dose anxiety medicine to see if that can improve some of her symptoms Gastroesop hageal reflux disease without esophagitis 775952839 K21.9 Symptoms reasonably well-contr olled on PPI, antinausea medication as needed05/26 - symptoms ok. EGD ok08/23-elias rologist was concerned about some of her nausea meds recommende d to try Zofran continue PPI.09/23-d oing okay on PPI and Zofran12/24 failed trial off meds -restart PPI and Zofran as needed Vaccination needed 86684 87450 41322 Z23 322366 [id number] JI DEMETRI LL, DO [facility] [address] [place] [address] 01/12/2025 13:45:17 01/12/2025 14:28:20 Moderate major depression 464591 F32.1 15094 09/23-Patie nt has had depressive symptoms for [...] change Irritable bowel syndrome characterized by constipation 168670978 K58.1 293151 08/23 still slow - rec mom-10/23- still slow- was been off mom-plans to take in more prunes using magnesia as needed12/24 -no change, despite changes in medical regimen - Continue with a dietary strategy with prunes; use milk of magnesia as needed for relief. Essential hypertension 16943592 I10 Medication decision made based on pt's allergies and co-morbid conditions including: HTN, T2DM08/23-v alsartan 80, might need to decrease blood pressure medicine as weight drops09/23- same.10/23- BP variable- sometimes high. average last month high.-incr eased valsartan to 1609/25 - dc diovan-try Bystolic- BP back high- no imorovment in ill effects- restart valsartan lower dose.01/23 -blood pressures coming down nicely on Bystolic 5 valsartan 40 Seizure disorder 8653612 02 G40.909 seeing neuro now.11/17-n eurologist referred her to recently left the practice, she is stable, evaluation was unrevealin g, we will simply continue her medication for now05/26 - stable06/23 - documented seizure- on meds- seeing [place]08/23- on phentoyn and keppra - seeing Meño in [facility]- did EEG. n clifford sleep test scheduled- then follow up-dont know results.- no more seizure no med changes09/30 5-planning to follow-up with neurologis t at [place]- Continue management , observe potential effects of medication changes Type 2 carlos enrique betes mellitus without complication 478751715 E11.9 on januvia., aic 6.9 02/21, LDL 788/19- surendra labs today . tolerates januva well.11/22- aic 7.05/26-ch mally routine labs, microalbum in, no complicati ons that we know of08/23- losing weight-rec heck A1c might be able to stop Jntfkxav2t 6.39.25- losing weight -hold Januvia for now-May need to liberalize diet some12/24- still losing weight - continue to hold januvia Gastroesop hageal reflux disease without esophagitis 387402397 K21.9 Symptoms reasonably well-contr olled on PPI, antinausea medication as needed05/26 - symptoms ok. EGD ok08/23-elias rologist was concerned about some of her nausea meds recommende d to try Zofran continue PPI.09/23-d oing okay on PPI and Zofran12/24 failed trial off meds -restart PPI and Zofran as needed Anxiety 98678912 F41.9 22101 01/23-over all is better, weight is coming back up for the first time in months, complaints are still there but better - Continue current Xanax regimen- Monitor for any symptomato logy changes Health Concerns Section Related Observation LastModified by Organization Detai ls LastModified Time None Recorded Concern Status LastModified by Organization Details LastModified Time None Recorded Advance Directives Directive None Recorded Payers Insurance Date Sequence Insurance Name Policy Number Policy Ibrahim Covered Member ID Ibrahim Member ID Guarantor Name 01/09/2025 1 MEDICARE[place]ARE[place] Elizabeth Pozo [id number] Elizabeth Pozo 01/09/2025 2 [employer] (MEDICARE SUPPLEMENT) Elizabeth Pozo [id number] Elizabeth Pozo Notes Date Note Type Note Provider Name and Address Organization Details Recorded Time 09/18/2024 text/html Patient is 73-year-old female here for acute visit. Patient has history of seizure disorder with recent recurrence of seizures, felt to be optimally managed with Keppra and phenytoin. She had a positive depression screen had been having some significant depressive symptoms, we started low-dose Zoloft, 12.5 once daily at night, she started this almost 2 weeks ago, a few days after she had some nausea which she typically gets with new medicines, but then developed some difficulty sleeping some restlessness, some confusion, started having some hallucinations, had some funny mouth movements and jaw movements. Denies any symptoms of infection no cough no respiratory symptoms no abdominal pain, no urinary symptoms JI CORONA, DO [facility] [place], [address], [facility] 09/18/2024 12:54:25 10/20/2024 text/html The patient is a 73 year old female presenting with altered mental status and essential hypertension. The patient's altered mental status episodes were initially associated with Zoloft, and cessation of the medication resulted in resolution of her delusions and some improvement in lethargy over a few days. However, drowsiness persists and mental clarity fluctuates under certain conditions related to anticipated events. Her hypertension is marked by irregular readings fluctuating in significant ranges. Documented blood pressure values demonstrate variability with concerning spikes, and her current blood pressure management approach may need reassessment. 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 - She expresses concerns regarding weight management and pill burden due to medication preferences and side effects. JI CORONA DO [address] [place], [address], [facility] 10/20/2024 16:39:30 12/01/2024 text/html The patient is a 74-year-old [...] generated note prior to signature. JI CORONA, [address] [place], [address], [facility] 12/01/2024 17:08:09 12/15/2024 text/html The patient is a 74 [...] prior to signature. JI CORONA, DO [address] [place], [address], [facility] 12/15/2024 17:05:38 01/12/2025 text/html The patient is a 74-year-old female presenting with issues related to anxiety and hypertension management. She is being treated with Xanax for anxiety, which she takes predominantly every day, with only occasional abstention. Her hypertension is being managed with Valsartan 40 mg, taken separately twice a day. Since her last follow-up in November, her treatment regimen has essentially remained unchanged with no new consultations. The patient indicates improvement in managing her symptoms, attributing caregiving by her spouse as an instrumental part of her care. Her anxiety management appears linked to lifestyle adjustments, having made significant progress in the last six months, although there has been some weight increase recently noted. Medical History: - Moderate major depression - Irritable bowel syndrome characterized by constipation - Essential hypertension - Seizure disorder - Type 2 diabetes mellitus without complication - Gastroesophageal reflux disease without esophagitis - Anxiety disorder, unspecified Medications: - Valsartan 40 mg for hypertension, taken separately in the morning and evening - Xanax, taken for anxiety, initially prescribed as needed but now taken almost daily Social History: - The patient receives substantial caregiving support from her spouse. - Recent weight increase without specific dietary details provided. Documentation on this patient encounter was supported using voice-enabled Al technology. The patient consented to recording for the purpose of documenting the encounter. Provider reviewed content of the generated note prior to signature. JI CORONA, DO [address] [place], [address], [facility] 01/12/2025 17:02:53 OBGyn Episode No OBEpisode recorded.
--- OUTSIDE RECORDS SUMMARY | 2025-01-21 07:43 | XMS_ITS | Data Portability ---
Author Organization [facility] [place] AD[place] Address [address] [place] [address] Care Team Providers Care Geospatial Intelligence Analyst Name Role Phone JI CASTILLO Primary Care Provider [phone] Assessment Encounter Date Assessment Date Assessment LastModified by Organization Details LastModified Time 05/06/2024 05/06/2024 73-year-old female with chronic abdominal pain, nausea, and diarrhea. She has had a poor appetite for the past 2-3 months and has had a 30 lb unintentional weight loss. [email or web address] Not available 05/06/2024 13:57:28 Plan of Treatment Reminders Order Date Submit Date Provider Last Modified By Organization Details Last Modified Time Details Appointments None recorded. Lab CMP, serum or plasma 2023 024 [facility] (Registration ), [address] [facility], [place], [address], 17:00:52 phenytoin, free + total, serum 2023 024 [facility] (Registration ), [address] [facility], [place], [address], 4 13:35:57 phenobarbit al, total, serum 2023 024 [email or web address] [facility] (Registration ), [address] [facility], [place], [address], 4 13:36:42 Referral None recorded. Procedures None recorded. Surgeries None recorded. Imaging None recorded. Medication Orders levetiracet am 500 mg tablet 2023 024 [id number], [address] [facility], [place], [place], [id number], 14:40:01 Patient TargetsNo targets recorded. Patient Instructions Encounter Date Encounter Id Patient Instructions Last Modified By Organization Details Last Modified Time 05/06/2024 [id number] Name: ИВАН POZO LMA Exam Date: 03/26/2024 : 1950 Age 73 years Physician: MOLLY WU Facility: [facility] Facility HSV: Outpatient Exam: CT ABD [...] at this time. Hepatomegaly. Nonobstructive right nephrolithiasis. [email or web address] Not available 05/06/2024 14:03:07 Reason for Referral None Reported. Results Created Date Observation Date Name Description Value Unit Range Abnormal Flag Note LastModifiedBy Organization Detail LastModifiedTime 04/29/19 24 04/29/2023 COMP METAB OLIC PANEL sodium 138 mmol/ L 136-14 5 Not Available [facility] [address] [facility], [place], [address], 04/29/2023 17:00:52 04/29/19 24 04/29/2023 COMP METAB OLIC PANEL potassium 4.4 mmol/ L 3.6-5. 0 Not Available [facility] ([facility] [address], [place], [address], 04/29/2023 17:00:52 04/29/19 24 04/29/2023 COMP METAB OLIC PANEL chloride 100 mmol/ L 98-107 Not Available [facility] ([facility] [address], [place], [address], 04/29/2023 17:00:52 04/29/19 24 04/29/2023 COMP METAB OLIC PANEL carbon dioxide 24.1 mmol/ L 21.0-3 2.0 Not Available [facility] ([facility] [address], [place], [address], 04/29/2023 17:00:52 04/29/19 24 04/29/2023 COMP METAB OLIC PANEL anion gap 18.3 Not Available [facility] ([facility]) [address] , [place], [address], 04/29/2023 17:00:52 04/29/19 24 04/29/2023 COMP METAB OLIC PANEL glucose 212 mg/dL 70-120 high Not Available [facility] ([facility] [address], [place], [address], 04/29/2023 17:00:52 04/29/19 24 04/29/2023 COMP METAB OLIC PANEL BUN 7 mg/dL 7-18 Not Available [facility] ([facility] [address] , [place], [address], 04/29/2023 17:00:52 04/29/19 24 04/29/2023 COMP METAB OLIC PANEL creatinine 0.8 mg/dL 0.6-1. 3 Not Available [facility] ([facility] [address] , [place], [address], 04/29/2023 17:00:52 04/29/19 24 04/29/2023 COMP METAB OLIC PANEL glomerular filtration rate TNP mlper min 60- TEST NOT PERFO RMED GFR has only been valid ated from 18 to 70 years of age. Not Available [facility] ([facility]) [address] , [place], [address], 04/29/2023 17:00:52 04/29/19 24 04/29/2023 COMP METAB OLIC PANEL total protein 7.5 g/dL 6.4-8. 2 Not Available [facility] ([facility] [address] , [place], [address], 04/29/2023 17:00:52 04/29/19 24 04/29/2023 COMP METAB OLIC PANEL albumin 3.9 g/dL 3.4-5. 0 Not Available [facility] ([facility] [address] , [place], [address], 04/29/2023 17:00:52 04/29/19 24 04/29/2023 COMP METAB OLIC PANEL globulin 3.6 Not Available [facility] ([facility]) [address] , [place], [address], 04/29/2023 17:00:52 04/29/19 24 04/29/2023 COMP METAB OLIC PANEL alb/glob ratio 1.1 0.7-2 Not Available [facility] ([facility]) [address] , [place], [address], 04/29/2023 17:00:52 04/29/19 24 04/29/2023 COMP METAB OLIC PANEL calcium 8.9 mg/dL 8.5-10 .5 Not Available [facility] ([facility] [address] , [place], [address], 04/29/2023 17:00:52 04/29/19 24 04/29/2023 COMP METAB OLIC PANEL bilirubin total 0.30 mg/dL 0.10-1 .00 Not Available [facility] ([facility]) [address], [place], [address], 04/29/2023 17:00:52 04/29/19 24 04/29/2023 COMP METAB OLIC PANEL AST (SGOT) 36 U/L 0-37 Not Available [facility] ([facility]) [address], [place], [address], 04/29/2023 17:00:52 04/29/19 24 04/29/2023 COMP METAB OLIC PANEL ALT (SGPT) 53 U/L 0-65 Not Available [facility] ([facility]) [address] [facility], [place], [address], 04/29/2023 17:00:52 04/29/19 24 04/29/2023 COMP METAB OLIC PANEL alk phosphatase 135 U/L 46-116 high Not Available [facility] ([facility]) [address] [facility], [place], [address], 04/29/2023 17:00:52 04/29/19 24 04/29/2023 PHENY TOIN (DILA NTIN) TOTAL phenytoin (dilantin) 10.2 ug/mL 10-20 Not Available [facility] ([facility]) [address] [facility], [place], [address], 04/29/2023 17:00:54 04/29/19 24 05/02/2023 PHENO ISAIAS GURWINDER phenobarbita l 11 ug/mL 15-40 low Detec tion Limit = 3 Perfo rmed at: [facility] [place] [address] Lab Direc tor: Moises barnes PhD, Phone : [phone] Not Available [facility] ([facility]) [address] [facility], [place], [address], 05/02/2023 08:22:17 04/29/19 24 05/20/2023 PHENY TOIN ANGELA TIN FREE phenytfr 0.5 [facility] Alexandra enriquez Dir: AILIN GLASS MD [address] ,[place] [address] by: [phone] Refer ence Inter jacqueline 1.0-2 .0 Not Available [facility] (Registration ) [address] [facility], [place], [address], 05/20/2023 13:34:54 04/25/19 24 01/11/2014 elect roenc ephal ogram No observ ation record ed. BARCODE Not Available 2023 13:24:39 04/25/19 24 12/15/2013 CT, brain , w/o contr ast No observ ation record ed. BARCODE Not Available 2023 13:24:39 Result Notes None recorded. Problems Name Problem SNOMED Code Status Onset Date Resolution Date Notes Provider Name and Address Organization Details Recorded Time Seizure 84416039 Active 2023 Gladys dean, [facility] [place] 4 12:33:18 Generalized epilepsy 20079359 Active 2023 Pallavi Dugan DO [address] [facility], [place], [address] , [facility] - [facility] [place] 4 14:02:40 Chronic diarrhea 302361293 Active 2024 Lc Garzon PA-C [address] [place], [address] , [place] - [facility] [place] 5 13:56:22 Unintentional weight loss 504707901 Active 2024 Lc Garzon PA-C [address] [place], [address] , [facility] - [facility] [place] 5 13:56:28 Nausea and vomiting 11028944 Active 2024 Lc Garzon PA-C [address], [place], [address] , [place] - [facility] [place] 5 13:56:37 Abdominal pain 92981557 Active 2024 Lc Garzon PA-C [address] [facility], [place], [address] , [place] [facility] [place] [facility] [place] 5 13:56:42 Problem Notes None recorded. Procedures Surgical History Date Name Laterality Status Provider Name and Address Organization Details Recorded Time delivery completed Gladys Mchugha [place] - [facility] [place] [facility] [place] 04/23/2023 13:27:29 Cholecystectomy completed Gladys Lolitaa [place] - [facility] [place] [facility] [place] 04/23/2023 13:27:42 cataract surgery completed Gladys Lolitaa [place] - [facility] [place] [facility] [place] 04/23/2023 13:39:43 Imaging Results None recorded. Procedure Notes None recorded. Medical Equipment None Reported. Allergies Allergen ID Allergen Name Allergen Category Reaction Reaction Severity Criticality Documentation Date Start Date Code Code System Note Provider Name and Address Organization Details Recorded Time 573469 aspirin medicatio n Not available Not available Not available 04/23/2023 1191 RxNorm Gladys oLlitaa null, [place] - [facility] [place] [facility] [place] 4 12:28:54 236093 codeine medicatio n Not available Not available Not available 04/23/2023 2670 RxNorm Gladys Dalla null, [place] - [facility] [place] 4 12:29:03 953713 Flagyl medicatio n Not available Not available Not available 04/23/2023 83002 6 RxNorm Gladys Dalla null, [place] [facility] [place] [facility] [place] 4 12:29:11 947267 pertussis vaccine medicatio n Not available Not available Not available 04/23/2023 8080 RxNorm Gladys Dalla [place], [place] [facility] [place] [facility] [place] 4 12:29:18 363099 Substance with sulfonami de structure and antibacte rial mechanism of action (substanc e) medicatio n Not available Not available Not available 04/23/2023 89870 8003 SNOMED Gladys Dalla null, [place] - [facility] [place] [facility] [place] 4 12:29:29 671950 Tequin medicatio n Not available Not available Not available 04/23/2023 55202 4 RxNorm NAIMA Truong [facility] [place] 4 12:29:36 160978 Substance with tetracycl ine structure (substanc e) medicatio n Not available Not available Not available 04/23/2023 93458 8001 SNOMED NAIMA Truong [facility] [place] 4 12:29:46 145611 cyclobenz aprine medicatio n Not available Not available Not available 04/23/2023 73053 RxNorm NAIMA Truong [facility] [place] 4 13:22:04 Medications Name Sig Start Date [...] Relief 50 mcg/actuati on nasal spray,suspe nsion [place] 1 spray every day by intranasa l [...] Allergy 205.5 mcg (0.15 %) nasal spray [place] 1 spray twice a day by intranasa [...] Address Organization Details Last Updated DateTime 4 46364 g 36.2 kg/m2 151.77 cm 97 % 97 % 82 /min 158/70 mm[Hg] Gladys Dalla [place] - [facility] [place] 4 13:34:47 Date Recorded Body height Body mass index (BMI) Body weight Body temperature Oxygen saturation Oxygen saturation in Arterial blood by Pulse oximetry Heart rate Systolic And Diastolic Provider Name and Address Organization Details Last Updated DateTime 5 151.77 cm 32.2 kg/m2 52804.9 9 g 98.1 [degF] 98 % 98 % 95 /min 187/80 mm[Hg] Adan gaona [place] - [facility] [place] 5 13:03:36 Date Recorded Heart rate Provider Name an d Address Organization Details Last Updated DateTime 05/22/2023 57 /min Amaya Garcia O [address] [facility], [place], [address], [facility] [place] 05/22/2023 14:37:42 Date Recorded Body height Body mass index (BMI) Body weight Oxygen saturation Oxygen saturation in Arterial blood by Pulse oximetry Systolic And Diastolic Provider Name and Address Organization Details Last Updated DateTime 4 151.77 cm 36 kg/m2 09587.6 9 g 99 % 99 % 168/70 mm[Hg] Gladys Mchughblair NAIMA Velásquez [facility] [place] 4 14:22:15 Date Recorded Body height Body mass index (BMI) Body weight Heart rate Oxygen saturation Oxygen saturation in Arterial blood by Pulse oximetry Systolic And Diastolic Provider Name and Address Organization Details Last Updated DateTime 4 151.77 cm 36.2 kg/m2 83026.2 8 g 82 /min 97 % 97 % 138/62 mm[Hg] Gladys Mchughblair NAIMA Velásquez [facility] [place] 4 14:50:26 Social History Question Answer Notes LastModified by Organizat ion Details LastModified Time Tobacco Smoking Status Former Smoker rare-years ago Gladys dean [place] - [facility] [place] 04/23/2023 13:26:35 What Is Your Level Of [...] Not available 13:38:31 Medical History Condition Response Diabetes Y Vision or Eye Problems Y Seizures/Epilepsy Y Arthritis Y Reflux/GERD Y Hospitalizations Y Hyperlipidemia Y Hypertension Y Gynecological HistoryNo gynecological history recorded. Obstetrics History GPAL:G 0 P 0 0 0 0 Past Encounters Encounter ID Performer Location Encounter Start Date Encounter Closed Date Diagnosis/Indication Diagnosis SNOMED-CT Code Diagnosis ICD10 Code Diagnosis IMO Codes Diagnosis Note [id number] DO ODALYS Garcia [facility] Neurology [address] [facility],[address] [place] [address] 04/23/2023 13:08:02 04/23/2023 14:20:29 Generalized epilepsy 70581674 G40.309 Chronic condition that has been relatively [...] DEXA scan for osteoporos is related to terminologist dilantin use.Seizur e precaution s reviewed.N o indication to repeat an EEG at this time. [id number] Pallavi Dugan DO [facility] Neurology [address] [facility],[address] [place] [address] 05/22/2023 14:12:46 05/22/2023 14:42:10 Generalized epilepsy 10312824 G40.309 Chronic condition that has been relatively [...] refills on her prescripti ons today.Seiz camden precaution s reviewed.N o indication to repeat an EEG at this time. She did have a low pulse today but was asymptomat ic. She was instructed to monitor this from home over the next few days and if it remains low to make her PCP aware. [id number] DO ODALYS Garcia [facility] Neurology [address] [facility],[address] [place] [address] 07/24/2023 14:40:20 07/24/2023 15:16:10 Generalized epilepsy 73494149 G40.309 Chronic condition that is stable. She [...] to repeat an EEG at this time. [id number] Lc Garzon PA-C [facility] [address] [facility] [address] [place] [address] 05/06/2024 12:41:45 05/06/2024 13:51:30 Chronic diarrhea 580696483 K52.9 Symptoms are worse with stress. May favor functional diarrhea. Will await endoscopic findings. Unintentio nal weight loss 005415428 R63.4 -Schedule EGD and colonoscop y for further evaluation . Nausea and vomiting 1691999 R11.2 Abdominal pain 34763887 R10.9 Health Concerns Section Related Observation LastModified by Organization Detai ls LastModified Time None Recorded Concern Status LastModified by Organization Details LastModified Time None Recorded Advance Directives Directive None Recorded Payers Insurance Date Sequence Insurance Name Policy Number Policy Ibrahim Covered Member ID Ibrahim Member ID Guarantor Name 06/04/2024 1 [place] Elizabeth Pozo [id number] Elizabeth Pozo 06/04/2024 2 [employer] (MEDICARE SUPPLEMENT) Elizabeth Pozo [id number] Elizabeth Pozo 06/04/2024 2 [employer] Elizabeth Pozo [id number] Elizabeth Pozo Notes Date Note Type Note Provider Name and Address Organization Details Recorded Time 04/23/2023 text/html 72 y/o right handed female here for neurologic [...] not aware of the results. Pallavi Dugan, DO [address], [place], [address], [place] [facility] [place] [facility] [place] 04/25/2023 12:54:19 05/22/2023 text/html Elizabeth comes in today for a follow up. [...] head in 2013 was normal. EEG in 2014 was normal.I [...] not aware of the results. Pallavi Dugan, DO [address] [facility], [place], [address], [facility] - [place] - [place] [facility] [place] 05/22/2023 14:44:13 07/24/2023 text/html Elizabeth comes in today for follow up. She is accompanied by [...] aware of the results. Pallavi Dugan DO [address], [place], [address], [place] [facility] [place] 07/24/2023 15:19:17 05/06/2024 text/html Ms. Pozo is [...] denies dysphagia or heartburn. Lc Garzon PA-C [address], [place], [address], [place] [facility] [place] 05/06/2024 14:38:16 OBGyn Episode No OBEpisode recorded.
--- OUTSIDE RECORDS SUMMARY | 2025-01-21 07:43 | XMS_ITS | Continuity of Care Document ---
Author Organization [place] [facility], [facility] Address [address] [place] [address] Assessment Encounter Date Assessment Date Assessment LastModified by Organization Details LastModified Time 01/12/2025 01/12/2025 - 74 year old female [...] table t,del ayed relea se 2024 025 [facility], [facility], [place], [address], 01/12/2025 14:24:09 Bysto lic 5 mg table t 2024 025 [facility], [address] [place], [address], 01/12/2025 14:24:11 valsa rtan 40 mg table t 2024 025 [facility], [address] [place], [address], 01/12/2025 14:24:11 Xanax 0.25 mg table t 2024 [place] [id number], [address] [place], [place], [id number], 01/12/2025 14:24:21 Patient TargetsNo targets recorded. Patient Instructions Encounter Date Encounter Id Patient Instructions Last Modified By Organization Details Last Modified Time 01/12/2025 [id number] - Continue takin g Valsartan as prescribed, [...] 01/12/2025 14:26:04 Reason for Referral None Reported. Problems Name Problem SNOMED Code Status Onset Date Resolution Date Notes Provider Name and Address Organization Details Recorded Time Obesity 950993162 Active Not Available [facility] 4 14:08:00 Morbid obesity 431564136 Active Not Available [facility] 5 14:16:35 Renal disorder due to type 2 diabetes mellitus 254342980 Active Not Available [facility] 5 14:16:57 Urinary tract infectiou s disease 17980657 Active 2015 From [employer]ated [employer];Provi paulina: Choi, Angel;St atus: Active Not Available [facility] 6 08:01:39 Type 2 diabetes mellitus without complicat ion 909164703 Active 2022 JI BURNETTEEVANSTEPHEsperanza LL, DO [address] [place], [address] , [facility] 3 17:04:52 Essential hypertens ion 03728043 Active 2022 JI MOSQUERA LL, DO [address] [place], [address] , [facility] 3 17:04:53 Mixed hyperlipi demia 525154223 Active 2022 JI RIOSEsperanza LL, DO [address] [place], [address] , [facility] 3 17:04:54 Seizure disorder 761785602 Active 2022 JI DEMETRI , DO [address] [place], [address] , [facility] 3 17:04:56 Cerebrova scular disease 33517683 Active 2024 JI YOMAIRARASHEEDEsperanza , DO [address] [place], [address] , [facility] 5 14:17:48 Irritable bowel syndrome character ized by constipat ion 234868953 Active 2024 JI CLARKESTEPHEsperanza , DO [address] [place], [address] , [facility] 5 14:17:51 Moderate major depressio n 046881 Active 2024 JI DEMETRI , DO [address] [place], [address] , [facility] 5 11:22:08 Problem Notes None recorded. Medical Equipment None Reported. Allergies Allergen ID Allergen Name Allergen Category Reaction Reaction Severity Criticality Documentation Date Start Date Code Code System Note Provider Name and Address Organization Details Recorded Time 20451202 Tequin medicatio n Not available Not available Not available 02/23/20162005 55446 4 RxNorm Comme nt: Creronaldo ed By: Saira morton Date: 01/15 8:27: 00 AM; Not Available [facility] 6 12:27:44 398787 Flagyl medicatio n Not available Not available Not available 02/23/2016201586 6 RxNorm Comme nt: Creat ed By: John meadows Date: 2015 12:26 :53 PM; Not Available [facility] 6 12:27:44 513580 aspirin medicatio n Not available Not available Not available 02/23/20162005 1191 RxNorm Comme nt: Creat ed By: Saira Isabel ;Jaylan selene Date: 01/15 8:27: 28 AM; Not Available [facility] 6 12:37:17 961713 Substance with sulfonami de structure and antibacte rial mechanism of action (substanc e) medicatio n Not available Not available Not available 02/24/20162005 97609 8003 SNOMED Comme nt: Creat ed By: Saira Isabel ;Crea selene Date: 01/15 8:24: 43 AM; Not Available [facility] 6 03:13:54 886525 pertussis vaccine medicatio n Not available Not available Not available 02/24/20162005 8080 RxNorm Comme nt: Creat ed By: Saira Isabel ;Crea selene Date: 01/15 8:27: 39 AM; Not Available [facility] 6 03:13:54 884429 codeine medicatio n Not available Not available Not available 02/24/20162015 2670 RxNorm Comme nt: Creat ed By: John meadows Date: 2015 12:27 :13 PM; Not Available [facility] 6 03:13:54 459338 tetracycl ine hydrochlo ride medicatio n Not available Not available Not available 02/24/20162005 90945 6 RxNorm Comme nt: Creat ed By: [...] Astepro 137 mcg (0.1 %) nasal spray Sondheimer 2 sprays twice a day by intranas [...] 137 mcg-fluti casone 50 mcg/spray nasal spray Sondheimer 1 spray twice a day by intranas [...] Organization Details Last Updated DateTime 149.86 cm 28.5 kg/m2 87175.9 2 g 70 /min 97 % 97 % 97.8 [degF] 130/65 mm[Hg] Bambi Silva [facility] 14:04:34 Social History Question Answer Notes LastModified by Organizat ion Details LastModified Time Tobacco Smoking Status Never Smoker Snehal Sawyer [facility] 02/13/2023 14:17:59 What Was The Date Of [...] quadrivalent, PF 01/05/2022 completed Marian Guzman [facility] 03/26/2024 14:45:01 Influenza, high-dose, quadrivalent, PF 01/22/2023 completed Marian Guzman [facility] 03/26/2024 14:45:01 COVID-19, mRNA, LNP-S, PF, 30 mcg/0.3 mL dose 05/07/2020 [facility] 14:45:01 COVID-19, mRNA, LNP-S, PF, 30 mcg/0.3 mL dose 05/28/2020 completed Marian Guzman [facility] 03/26/2024 14:45:01 COVID-19, mRNA, LNP-S, PF, 30 mcg/0.3 mL dose 12/26/2020 completed Marian Guzman [facility] 03/26/2024 14:45:01 COVID-19, mRNA, LNP-S, PF, 30 mcg/0.3 mL dose, jacob-sucrose 08/18/2021 completed Marian Guzman [facility] 03/26/2024 14:45:01 COVID-19, mRNA, LNP-S, bivalent, PF, 30 mcg/0.3 mL dose 01/05/2022 completed Marian Guzman [facility] 03/26/2024 14:45:01 COVID-19, mRNA, LNP-S, PF, jacob-sucrose, 30 mcg/0.3 mL 01/22/2023 completed Mraian Guzman [facility] 03/26/2024 14:45:01 RSV, bivalent, protein subunit RSVpreF, diluent reconstituted, 0.5 mL, PF 03/06/2023 completed Marian Guzman [facility] 03/26/2024 14:54:50 COVID-19, mRNA, LNP-S, PF, 50 mcg/0.5 mL 01/29/2024 completed [facility] 13:46:17 Influenza, high-dose, trivalent, PF 01/27/2024 completed Snehal Sawyer [facility] 01/27/2024 14:45:43 Influenza, high-dose, trivalent, PF 12/15/2024 completed Bambi Silva [facility] 12/16/2024 08:35:27 RSV, recombinant, protein subunit RSVpreF, adjuvant reconstituted, 0.5 mL, PF 12/15/2024 completed Bambi Silva [facility] 12/16/2024 08:35:27 Past Encounters Encounter ID Performer Location Encounter Start Date Encounter Closed Date Diagnosis/Indication Diagnosis SNOMED-CT Code Diagnosis ICD10 Code Diagnosis IMO Codes Diagnosis Note [id number] JI MOSQUERA LL, DO PRIMARY CARE [facility] [address] [facility] [place] [address] 12/15/2024 14:00:13 12/15/2024 15:12:01 Moderate major depression 739496 F32.1 91898 09/23-Patie nt has had depressive symptoms for [...] change Irritable bowel syndrome characterized by constipation 926855140 K58.1 077630 08/23 still slow - rec mom-10/23- still slow- was been off mom-plans to take in more prunes using magnesia as needed12/24 -no change, despite changes in medical regimen - Continue with a dietary strategy with prunes; use milk of magnesia as needed for relief. Essential hypertension 84086193 I10 Medication decision made based on pt's allergies and co-morbid conditions including: HTN, T2DM08/23-v alsartan 80, might need to decrease blood pressure medicine as weight drops09/23- same.10/23- BP variable- sometimes high. average last month high.-incr eased valsartan to 1609/25 - dc diovan-try Bystolic- BP back high- no imorovment in ill effects- restart valsartan lower dose. Seizure disorder 8714042 02 G40.909 seeing neuro now.11/17-n eurologist referred her to recently left the practice, she is stable, evaluation was unrevealin g, we will simply continue her medication for now05/26 - stable06/23 - documented seizure- on meds- seeing neuro08/23- on phentoyn and keppra - seeing Meño in [facility]- did EEG. n wildwood sleep test scheduled- then follow up-dont know results.- no more seizure no med changes09/30 5-planning to follow-up with neurologis t at [place]- Continue management , observe potential effects of medication changes Abnormal weight loss 267 066419 R63.4 545107 08/23-charley rning, but felt to be multifacto [...] 2 carlos enrique betes mellitus without complication 508081356 E11.9 on januvia., aic 6.9 02/21, LDL 788/19- surendra labs today . tolerates januva well.11/22- aic 7.05/26-ch mally routine labs, microalbum in, no complicati ons that we know of08/23- losing weight-rec heck A1c might be able to stop Tizmfxqm4u 6.39.25- losing weight -hold Januvia for now-May need to liberalize diet some12/24- still losing weight - continue to hld januvia Nausea and vomiting 1693 1999 R11.2 12/24-persi stent nausea abdominal discomfort , has had multiple evaluation s in the past, recommend low-dose anxiety medicine to see if that can improve some of her symptoms Gastroesop hageal reflux disease without esophagitis 078539985 K21.9 Symptoms reasonably well-contr olled on PPI, antinausea medication as needed05/26 - symptoms ok. EGD ok08/23-elias rologist was concerned about some of her nausea meds recommende d to try Zofran continue PPI.09/23-d oing okay on PPI and Zofran12/24 failed trial off meds -restart PPI and Zofran as needed Vaccination needed 89832 24389 90913 Z23 241966 [id number] JI MOSQUERA LL, DO PRIMARY CARE [facility] [address] [place] [address] 01/12/2025 13:45:17 01/12/2025 14:28:20 Moderate major depression 130577 F32.1 96791 09/23-Patie nt has had depressive symptoms for [...] change Irritable bowel syndrome characterized by constipation 016153069 K58.1 559087 08/23 still slow - rec mom-10/23- still slow- was been off mom-plans to take in more prunes using magnesia as needed12/24 -no change, despite changes in medical regimen - Continue with a dietary strategy with prunes; use milk of magnesia as needed for relief. Essential hypertension 52529326 I10 Medication decision made based on pt's [...] on Bystolic 5 valsartan 40 Seizure disorder 4978985 02 G40.909 seeing neuro now.11/17-n eurologist referred her to recently left the practice, she is stable, evaluation was unrevealin g, we will simply continue her medication for now05/26 - stable06/23 - documented seizure- on meds- seeing [place] neuro08/23- on phentoyn and keppra - seeing Meño in [facility]- did EEG. n wildwood sleep test scheduled- then follow up-dont know results.- no more seizure no med changes09/30 5-planning to follow-up with neurologis t at [place]- Continue management , observe potential effects of medication changes Type 2 carlos enrique betes mellitus without complication 606781933 E11.9 on januvia., aic 6.9 02/21, LDL 788/19- surendra labs today . tolerates januva well.11/22- aic 7.05/26-ch mally routine labs, microalbum in, no complicati ons that we know of08/23- losing weight-rec heck A1c might be able to stop Mgeznjxq9n 6.39.25- losing weight -hold Januvia for now-May need to liberalize diet some12/24- still losing weight - continue to hold januvia Gastroesop hageal reflux disease without esophagitis 063042090 K21.9 Symptoms reasonably well-contr olled on PPI, antinausea medication as needed05/26 - symptoms ok. EGD ok08/23-elias rologist was concerned about some of her nausea meds recommende d to try Zofran continue PPI.09/23-d oing okay on PPI and Zofran12/24 failed trial off meds -restart PPI and Zofran as needed Anxiety 17381813 F41.9 18950 01/23-over all is better, weight is coming [...] Member ID Ibrahim Member ID Guarantor Name 01/12/2025 1 [place]ICARE[place] (MEDICARE[place] Elizabeth Pozo [id number] Elizabeth Pozo 01/12/2025 2 [employer] (MEDICARE SUPPLEMENT) Elizabeth Pozo [id number] Elizabeth Pozo Notes Date Note Type Note Provider Name and Address Organization Details Recorded Time 01/12/2025 text/html The patient is a 74-year-old [...] prior to signature. JI CORONA, DO [address] [place], [address], [facility] 01/12/2025 17:02:53 OBGyn Episode No OBEpisode recorded.
--- OUTSIDE RECORDS SUMMARY | 2025-01-21 07:43 | XMS_ITS | Clinical Summary ---
Author Organization [place] Address [address] [place] [address] Care Team Providers Care Supervisor Aircraft Cleaning Name Role Phone MikalgeovannaLakisha bealew Matilde DO Primary Care Provider Jermaine Maki MD Unavailable [phone] Allergies Active Allergy Reactions Criticality Noted Date [...] 60 tablet 6 5 Active nystatin (Mycostatin) 502027 UNIT/GM powder APPLY POWDER TOPICALLY TO AFFECTED [...] answer 06/01/2024 How often do you attend up health system or jehovah's witness services? Patient unable to answer 06/01/2024 Do you belong to any clubs o r organizations such as yazdanism groups, unions, fraternal or athletic groups, or [...] one occasion? Patient unable to answer 06/01/2024 [facility] - Occupational Stress Questionnaire Answer Date Recorded [...] any time in the past 12 m [facility], were you homeless or living in a nursing home (including now)? 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 Cage Overall score Not on file 06/01/2024 Utilities Answer Date Recorded In the past 12 months has th e [employer], gas, oil, or water company threatened to [...] Screening 1950 [facility]-Medicare Annual Wellness (AWV) 1950 [facility]-/Child/Adol SDOH Screenings 1950 Diabetes: Dental Exam 11/28/1961 [facility]-DTaP,Tdap,and Td Vaccines (1 - Tdap) 11/28/1970 [facility]-Pneumococcal Vaccine: 50+ Years (1 of 2 - PCV) 11/28/1970 CT Colonography 11/28/1996 Colonoscopy 11/28/1996 FIT-DNA 11/28/1996 FIT 11/28/1996 FOBT 11/28/1996 Sigmoidoscopy 11/28/1996 [facility]-Colorectal Cancer Screening 11/28/1996 [facility]-Breast Cancer Screening 11/28/2001 [facility]-Zoster Vaccines (1 of 2) 11/28/2001 [facility]-Diabetes: Hemoglobin A1C 2024 06/01/2024 [id number] Vaccine ( season) 2024 01/29/2024, 01/22/2023, 01/05/2022, Additional history exists [facility]-Influenza Vaccine (#1) 11/30/202401/26, 01/22/2023, 01/05/2022 [facility]- [...] Antibody Negative Negative 06/01/2024 1:59 AM EST [facility] Blood Venous blood specimen / Unknown Venipuncture / Unknown 06/01/2024 12:51 AM EST 06/01/2024 1:18 AM EST us Lux Olmstead MD LAB BLOOD ORDERABLES Final Re sult Performing Organization Address [facility] de Phone Number [facility] [address] [place] [address] * (ABNORMAL) Hemoglobin A1c (06/01/2024 12:51 AM EST) Hemoglobin A1c 6.2(H) <5.7 % 06/01/2024 4:30 AM EST [facility] Blood Venous blood specimen / Unknown Venipuncture / Unknown 06/01/2024 12:51 AM EST 06/01/2024 12:58 AM EST Narrative [facility] - 06/01/2024 4:30 AM EST HA1C Interpretive Data: Diagnosis of Diabetes: Diabetic > or = 6.5% Pre-diabetic 5.7 to 6.4% Non-diabetic < or = 5.6% Glycemic Targets for Type I and Type II Diabetics: Non- Adults <7.0% Adults <6.0% Children and Adolescents <7.5% Source: [place] [employer]. Standards of medical care in diabetes,2017. Diabetes Care.2017:40 (suppl 1):S1-S135. HbA1c assay performed by an ion-exchange chromatography method that is certified traceable to the DCCT. us Yvon Beasley MD LAB BLOOD ORDERABLES Final Resul t Performing Organization Address City/[facility]/ZIP Co de Phone Number [facility] [address] [place] [address] from Last 3 Months or Most Recently Relevant to Health Maintenance Insurance MEDICARE [facility] Care Teams Supervisor Aircraft Cleaning Relationship Specialty Start Date End Date Prakash Castillo DO [address] [facility] [address] [place] [address] PCP - General 06/15/24 Jermaine Maki MD [address] [place] [address] Consulting Physician Neurology 06/15/24
--- NOTE | 2025-01-21 08:15 | MR_ITS ---
FINAL REPORT TECHNIQUE: Multiplanar MR without contrast CLINICAL HISTORY: Recurrent seizures x years ringing in left ear FINDINGS: Diffusion sequences show no signal abnormality to indicate acute infarct. Scattered periventricular white matter signal changes are seen, slightly worse on the left compatible with my mild chronic ischemic gliotic disease. Mild generalized atrophy is present. The mastoid air cells are clear. No mass, hemorrhage or edema is seen. Ventricles are normal. Major vascular flow voids are intact. IMPRESSION: No evidence of mass or acute abnormality. Mild chronic microvascular changes. Reviewed, Interpreted and Dictated by Aracelis Zaragoza MD Transcribed by Chen Shields Authenticated and [facility]
[2025-01-21 09:23] LABS: Hematocrit 38.3 % (37.0-47.0); Hemoglobin 13.4 g/dL (12.2-16.2); Immature Granulocytes % 0.1 %; Mean Corpuscular HGB Conc 35.0 g/dL (31.8-35.4); Mean Corpuscular Hemoglobin 34.6 pg (27.0-31.2); Mean Corpuscular Volume 99.0 fl (81-99); Nucleated Red Blood Cells % 0 %; Platelet Count 205 K/mm3 (142-424); Red Blood Count 3.87 M/mm3 (4.20-5.40); Red Cell Distribution Width-SD 44.3 fL; White Blood Count 7.1 K/mm3 (4.8-10.8)
[2025-01-21 10:27] LABS: Albumin Level 3.9 g/dl (3.5-5.0); Chloride 104 mmol/L (98-107); Sodium 140 mmol/L (136-145)
[2025-01-21 10:28] LABS: Potassium 4.2 mmoL/L (3.5-5.1)
[2025-01-21 10:30] LABS: Alanine Aminotransferase 32 U/L (12-78); Albumin/Globulin Ratio 1.6 (1.1-1.8); Alkaline Phosphatase 89 U/L (38-126); Anion Gap 13.2 mEq/L (5-15); Aspartate Amino Transferase 31 U/L (14-36); Bilirubin,Total 0.2 mg/dl (0.2-1.3); Blood Urea Nitrogen 6 mg/dl (7-17); Calcium 8.9 mg/dl (8.4-10.2); Carbon Dioxide 27 mmol/L (22.0-30.0); Creatinine,Serum 0.50 mg/dl (0.52-1.04); Estimated Glomerular Filt Rate 121 ml/min (>60); GFR (African American) 146 ML/MIN (>60); Globulin 2.5 g/dL (1.3-3.2); Glucose 147 mg/dl (74-100); Total Protein,Serum 6.4 g/dl (6.3-8.2)
== END 2025-01-21 23:59 | disposition home or self-care (01) ==
PROVIDERS: PCP Internal Medicine; Visit Provider Specialist
DX: G40.909 Epilepsy, unspecified, not intractable, without status epilepticus (principal); I67.2 Cerebral atherosclerosis; G83.84 Todd's paralysis (postepileptic); I10 Essential (primary) hypertension; R90.89 Other abnormal findings on diagnostic imaging of central nervous system
CPT/HCPCS: 36415; 70551; 80053; 85025